=== PATIENT | male | born 1975 | race Caucasian/White ===

== ENCOUNTER 2021-05-21 09:42 | Emergency (ER) | payer OTHER ==
[2021-05-21 09:45] VITALS: BP 151/87; PULSE 78; RESP 18; TEMP 97.3
--- NOTE | 2021-05-21 10:33 | ED ---
Recheck HPI - General Chief Complaint: Recheck/Abnormal Lab/Rx Stated Complaint: Wants Antibodies Time Seen by Provider: 05/21/21 09:52 Source: patient, RN notes reviewed Mode of arrival: ambulatory Limitations: no limitations - History of Present Illness Initial Comments: Patient is a 45-year-old male that presents to the emergency Department wanting to monoclonal antibodies. He notes that he is asymptomatic but is not vaccinated and his is currently positive for Covid. Patient notes that he does have a long smoking history and is concerned about possibly gina Covid and the adverse effects. Patient does meet criteria for monoclonal antibody. Patient was otherwise well-appearing in no apparent distress or pain. He denied any other issues or complaints. He denied chest pain first breath headache nausea vomiting diarrhea constipation fever fatigue chills. - Related Data Allergies Allergy/AdvReac Type Severity Reaction Status Date / Time seafood Allergy Anaphylaxis Uncoded 05/21/21 09:45 Review of Systems ROS Statement: Those systems with pertinent positive or pertinent negative responses have been documented in the HPI. ROS Other: All systems not noted in ROS Statement are negative. Past Medical History Past Medical History: No Reported History History of Any Multi-Drug Resistant Organisms: None Reported Past Surgical History: Orthopedic Surgery Additional Past Surgical History / Comment(s): right knee and hip Past Psychological History: No Psychological Hx Reported Smoking Status: Current every day smoker Past Alcohol Use History: Occasional Past Drug Use History: None Reported General Exam Limitations: no limitations General appearance: alert, in no apparent distress Head exam: Present: atraumatic, normocephalic, normal inspection Eye exam: Present: normal appearance, PERRL, EOMI. Absent: scleral icterus, conjunctival injection, periorbital swelling ENT exam: Present: normal exam, mucous membranes moist Neck exam: Present: normal inspection Respiratory exam: Present: normal lung sounds bilaterally. Absent: respiratory distress, wheezes, rales, rhonchi, stridor Cardiovascular Exam: Present: regular rate, normal rhythm, normal heart sounds. Absent: systolic murmur, diastolic murmur, rubs, gallop, clicks Extremities exam: Present: normal inspection, full ROM, normal capillary refill. Absent: tenderness, pedal edema, joint swelling, calf tenderness Neurological exam: Present: alert, oriented X3 Psychiatric exam: Present: normal affect, normal mood Skin exam: Present: warm, dry, intact, normal color. Absent: rash Course Vital Signs 05/21/21 09:42 Temperature 97.3 F L Pulse Rate 78 Respiratory 18 Rate Blood Pressure 151/87 O2 Sat by Pulse 99 Oximetry Medical Decision Making - Medical Decision Making 45-year-old male with close contact to Covid-positive patient, not vaccinated long smoking history. Patient does meet criteria for monoclonal antibody therapy and wishes to undergo it at this time. Covid test ordered. Case discussed with Dr. Jones, patient discharge home after monoclonal antibody infusion. Disposition Clinical Impression: Exposure to COVID-19 virus Disposition: HOME SELF-CARE Condition: Stable Instructions (If sedation given, give patient instructions): Coronavirus Disea se 2019 (COVID-19) Additional Instructions: Please return to the Emergency Department if symptoms worsen or any other concerns. Follow-up with primary care 1-2 days. Quarantine per CDC guidelines. Tylenol Motrin for any fevers or aches and pains. Increase fluids. Is patient prescribed a controlled substance at d/c from ED?: No Referrals: Jessica Ramos DO [Primary Care Provider] - 1-2 days Time of Disposition: 10:33
[2021-05-21] MEDS ORDERED: CASIRIVIMAB (REGN10933) (EUA) 600 MG, IMDEVIMAB (REGN10987) (EUA) 600 MG in SODIUM CHLO... IVPB ONE (11:00)
[2021-05-21] MEDS ORDERED: SODIUM CHLORIDE 0.9% 50 ML IVPB ONE (11:30)
== END 2021-05-21 12:33 | disposition home or self-care (01) ==
LOC: EC 09:42
DX: Z20.822 Contact with and (suspected) exposure to COVID-19 (principal); F17.200 Nicotine dependence, unspecified, uncomplicated; Z91.013 Allergy to seafood
CPT/HCPCS: 87635; 99283; 96365; Q0243

== ENCOUNTER → 2021-05-24 | Outpatient (CLI) | payer OTHER | END | disposition home or self-care (01) | LOC: LABMAIN 18:04 | PROVIDERS: ATTEND Physician Assistant Medical | DX: Z20.822 Contact with and (suspected) exposure to COVID-19 (principal) | CPT/HCPCS: 87635 ==

== ENCOUNTER 2021-11-13 03:03 | Observation (INO) | payer OTHER ==
[2021-11-13 03:07] VITALS: RESP 18
[2021-11-13 03:46] LABS: Basophils # (A) 0.1 k/uL (0-0.2); Basophils % (A) 1 %; Eosinophils # (A) 0.3 k/uL (0-0.7); Eosinophils % (A) 3 %; HCT 47.3 % (39.0-53.0); HGB 15.2 gm/dL (13.0-17.5); Lymphocytes # (A) 2.6 k/uL (1.0-4.8); Lymphocytes % (A) 28 %; MCH 28.7 pg (25.0-35.0); MCHC 32.1 g/dL (31.0-37.0); MCV 89.6 fL (80.0-100.0); Mean Platelet Volume 7.3; Monocytes # (A) 0.5 k/uL (0-1.0); Monocytes % (A) 6 %; Neutrophils # (A) 5.6 k/uL (1.3-7.7); Neutrophils % (A) 61 %; Platelet Count 200 k/uL (150-450); RBC 5.28 m/uL (4.30-5.90); RDW 12.9 % (11.5-15.5); WBC 9.2 k/uL (3.8-10.6)
--- NOTE | 2021-11-13 03:52 | ED ---
Chest Pain HPI - General Chief Complaint: Chest Pain Stated Complaint: Chest pain Time Seen by Provider: 11/13/21 03:23 Source: patient, RN notes reviewed, old records reviewed Mode of arrival: ambulatory Limitations: no limitations - History of Present Illness Initial Comments: This is a 46-year-old male to the emergency department for evaluation. Patient was sleeping and had chest pain that woke him up. His chest and jaw pain left- sided. No shortness of breath no diaphoresis the pain is persistent. Patient is no medical history takes no medications no high blood pressure high cholesterol or diabetes. No travel history or sick contacts, no fever cough or congestion MD Complaint: chest pain -: hour(s) Onset: during rest Pain Location: substernal, left chest Pain Radiation: LUE Severity: mild Severity scale (1-10): 3 Quality: tightness Consistency: constant Improves With: nothing Worsens With: nothing Anginal Symptoms: sense of impending doom Other Symptoms: palpitations Treatments Prior to Arrival: none - Related Data Home Medications Medication Instructions Recorded Confirmed Atorvastatin [Lipitor] 40 mg PO DAILY 11/13/21 11/13/21 Gabapentin [Neurontin] 300 mg PO BID PRN 11/13/21 11/13/21 Omeprazole 40 mg PO DAILY 11/13/21 11/13/21 buPROPion HCL [Wellbutrin XL] 300 mg PO DAILY 11/13/21 11/13/21 Allergies Allergy/AdvReac Type Severity Reaction Status Date / Time No Known Allergies Allergy Verified 11/13/21 07:54 Review of Systems ROS Statement: Those systems with pertinent positive or pertinent negative responses have been documented in the HPI. ROS Other: All systems not noted in ROS Statement are negative. EKG Findings - EKG Comments: EKG Findings:: EKG is sinus rhythm 65 [place] 178 QRS 14 QTc 405 Past Medical History Past Medical History: No Reported History History of Any Multi-Drug Resistant Organisms: None Reported Past Surgical History: Orthopedic Surgery Additional Past Surgical History / Comment(s): right knee and hip Past Psychological History: No Psychological Hx Reported Smoking Status: Current every day smoker Past Alcohol Use History: Occasional Past Drug Use History: None Reported - Past Family History Mother Family Medical History: No Reported History Father Family Medical History: No Reported History General Exam Limitations: no limitations General appearance: alert, in no apparent distress Head exam: Present: atraumatic, normocephalic, normal inspection Eye exam: Present: normal appearance, PERRL, EOMI. Absent: scleral icterus, conjunctival injection, periorbital swelling ENT exam: Present: normal exam, mucous membranes moist Neck exam: Present: normal inspection. Absent: tenderness, meningismus, lymphadenopathy Respiratory exam: Present: normal lung sounds bilaterally. Absent: respiratory distress, wheezes, rales, rhonchi, stridor Cardiovascular Exam: Present: regular rate, normal rhythm, normal heart sounds. Absent: systolic murmur, diastolic murmur, rubs, gallop, clicks GI/Abdominal exam: Present: soft, normal bowel sounds. Absent: distended, tenderness, guarding, rebound, rigid Extremities exam: Present: normal inspection, full ROM, normal capillary refill. Absent: tenderness, pedal edema, joint swelling, calf tenderness Back exam: Present: normal inspection Neurological exam: Present: alert, oriented X3, CN II-XII intact Psychiatric exam: Present: normal affect, normal mood Skin exam: Present: warm, dry, intact, normal color. Absent: rash Course Vital Signs 11/13/21 11/13/21 11/13/21 03:05 05:07 05:30 Temperature 97.8 F 97.9 F Pulse Rate 71 75 Pulse Rate [ 68 Pulse Oximetery ] Respiratory 18 18 18 Rate Blood Pressure 148/98 126/91 Blood Pressure 125/82 [Left Arm Sitting] O2 Sat by Pulse 99 99 98 Oximetry - Reevaluation(s) Reevaluation #1: 11/13/21 Medical record is reviewed Patient symptoms are improving here in the emergency department Patient is informed of results and questions have been answered Chest Pain MDM - MDM 36 male to the emergency department admitted for chest pain observation, cardiac evaluation and treatment secondary to nature of chest pain Critical Care Time Critical Care Time: Yes Total Critical Care Time: 31 Disposition Clinical Impression: Chest pain Disposition: ADMITTED IP TO THIS HOSP Condition: Stable Is patient prescribed a controlled substance at d/c from ED?: No
[2021-11-13 03:55] LABS: ALT 24 U/L (4-49); AST 23 U/L (17-59); African American GFR (CKD) >90 (>60 ml/min/1.73 sqM); Albumin 4.1 g/dL (3.5-5.0); Alkaline Phosphatase 111 U/L (38-126); Anion Gap 6 mmol/L; Blood Urea Nitrogen 11 mg/dL (9-20); Calcium 8.7 mg/dL (8.4-10.2); Carbon Dioxide 26 mmol/L (22-30); Chloride 107 mmol/L (98-107); Glucose 103 mg/dL (74-99); Lipase 298 U/L (23-300); Magnesium 2.1 mg/dL (1.6-2.3); Non-African American GFR(CKD) >90 (>60 ml/min/1.73 sqM); Partial Thromboplastin Time 24.8 sec (22.0-30.0); Potassium 3.8 mmol/L (3.5-5.1); Prothrombin Time 10.5 sec (9.0-12.0); Sodium 139 mmol/L (137-145); Total Bilirubin 0.4 mg/dL (0.2-1.3)
--- NOTE | 2021-11-13 04:10 | XR ---
EXAMINATION TYPE: XR chest 2V DATE OF EXAM: 11/13/2021 COMPARISON: NONE HISTORY: Chest pain TECHNIQUE: FINDINGS: Heart and mediastinum are normal. Lungs are clear. Diaphragm is normal. Bony thorax appears normal. IMPRESSION: Normal chest.
[2021-11-13] MEDS ORDERED: HEPARIN SODIUM 1,000 UN/ML (10ML VL) IV ONE (04:53)
[2021-11-13] MEDS ORDERED: NITROGLYCERIN SL TABS 0.4 MG TAB SUBLINGUAL PRN (04:53)
[2021-11-13] MEDS ORDERED: ASPIRIN 81 MG PO STA (04:53)
[2021-11-13] MEDS ORDERED: HEPARIN SOD,PORK IN 0.45% NACL 25,000 UNIT in 0.45% NACL 1 250ML.BAG IV SCH (05:00)
--- NOTE | 2021-11-13 05:32 | P.HPIM ---
History of Present Illness H&P Date: 11/13/21 Patient is a 46-year-old male with a PMH of hypertriglyceridemia and tobacco abuse who presents to the emergency room with complaints of chest pain. The patient reports that he suddenly woke up from sleep at around 2 AM with right- sided chest discomfort, nonradiating, sharp in nature, nonpleuritic, with associated nausea, lightheadedness, and shortness of breath. The patient states that the pain was 5 out of 10 on maximal intensity, and has remained stable in intensity until the time of interview. He denied any alleviating or exacerbating features with this pain. Denied any prior history of [place]. Reports no family history of heart disease. Denied associatedpalpitations. Denied fever, chills, cough, abdominal pain, diarrhea. Reports drinking alcohol socially and smoking half pack of cigarettes daily for the past several years. EKG emergency room revealed sinus rhythm at 65 bpm with T-wave inversion in lead V1 with no additional ST/T-wave changes noted as reviewed by me. Chest x-ray was unremarkable. Laboratory evaluation revealed troponin less than 0.012. Review of systems: Pertinent positives and negatives as discussed in HPI, a complete review of systems was performed and all other systems are negative. Physical examination: General: non toxic, no distress, appears at stated age, overweight Derm: no unusual rashes/lesions no unusual ecchymoses, warm, dry Head: atraumatic, normocephalic, symmetric Eyes: EOMI, no lid lag, anicteric sclera, pupils equal round reactive to light ENT: Nose and ears atraumatic, no thrush, no pharyngeal erythema Neck: No thyromegaly, no cervical lymphadenopathy, trachea midline, supple Mouth: no lip lesion, mucus membranes moist Cardiovascular: S1S2 reg, no murmur, positive posterior tibial pulse bilateral, no edema, capillary refill less than 2 seconds Lungs: CTA bilateral, no rhonchi, no rales , no accessory muscle use Abdominal: soft, nontender to palpation, no guarding, no appreciable organomegaly, normal bowel sounds Ext: no gross muscle atrophy, muscle strength 5 out of 5 in all 4 extremities grossly, no contractures, Neuro: CN II-XI grossly intact, light touch intact all 4 extremities, finger to nose within normal limits, Psych: Alert, oriented, appropriate affect Assessment/plan Unstable angina -Cardiology consulted -Cardiac monitoring -Continue with aspirin, statin, Heparin infusion -Trend troponin -Advised on importance of tobacco cessation DVT prophylaxis -Heparin infusion The patient is admitted with an anticipated less than 2 midnight stay for evaluation of chest pain CODE STATUS: Full Code Discussed with: Patient Anticipated discharge date: in am Anticipated discharge place: Home Past Medical History Past Medical History: No Reported History History of Any Multi-Drug Resistant Organisms: None Reported Past Surgical History: Orthopedic Surgery Additional Past Surgical History / Comment(s): right knee and hip Past Psychological History: No Psychological Hx Reported Smoking Status: Current every day smoker Past Alcohol Use History: Occasional Past Drug Use History: None Reported Medications and Allergies Allergies Allergy/AdvReac Type Severity Reaction Status Date / Time No Known Allergies Allergy Verified 11/13/21 03:07 Physical Exam Vitals: Vital Signs Temp Pulse Resp BP Pulse Ox 11/13/21 05:07 75 18 126/91 99 11/13/21 03:05 97.8 F 71 18 148/98 99 Intake and Output 11/12/21 11/12/21 11/13/21 14:59 22:59 06:59 Other: Weight 81.647 kg Results CBC & Chem 7: 11/13/21 03:37 11/13/21 03:37 Labs: Abnormal Lab Results - Last 24 Hours (Table) 11/13/21 Range/Units 03:37 Glucose 103 H (74-99) mg/dL
[2021-11-13] MEDS ORDERED: METOPROLOL TARTRATE 25 MG TAB PO SCH (09:00)
[2021-11-13] MEDS: MORPHINE SULFATE 4 MG/ML SYRINGE IV PRN ×2 (09:25→13:23)
--- NOTE | 2021-11-13 11:16 | P.CRDCN ---
History of Present Illness Consult date: 11/13/21 History of present illness: HISTORY OF PRESENT ILLNESS: This is a 46-year-old male with a past medical history significant for hyperlipidemia and nicotine dependence. Patient does not follow with a financial engineer. We have been asked to see the patient in consultation for chest pain. Patient examined at the bedside. patient states he woke up this morning around 2am with chest pain. Patient states the pain was on the right side of his chest and felt like a sharp pain. Patient denied any radiation of pain. He denied shortness of breath. He reported feeling some mild nausea but no vomiting. He states the discomfort has been constant since waking up this morning. he denies any previous cardiac workup in the past. He is a half pack a day smoker. He reports social alcohol use. Denies any drug use including marijuana. He denies a family history of coronary artery disease. * EKG reveals sinus mechanism with no signs of acute ischemia * Chest xray negative for acute process * Laboratory data: W BC 9.2. Hemoglobin 15.2. Platelet count 200. Sodium 139. Potassium 3.8. BUN 11. Creatinine 0.85. Magnesium 2.1. * Current home cardiac medications include Lipitor 40 mg daily REVIEW OF SYSTEMS: At the time of my exam: CONSTITUTIONAL: Denies fever or chills. HEENT: Denies blurred vision, vision changes, or eye pain. Denies hemoptysis CARDIOVASCULAR: Denies chest pain. Denies orthopnea. Denies PND. Denies palpitations RESPIRATORY: Denies shortness of breath. GASTROINTESTINAL: Denies abdominal pain. Denies nausea or vomiting. HEMATOLOGIC: Denies bleeding disorders. GENITOURINARY: Denies any blood in urine. SKIN: Denies pruitis. Denies rash. PHYSICAL EXAM: VITAL SIGNS: Reviewed. GENERAL: Well-developed in no acute distress. HEENT: Head is normocephalic. Pupils are equal, round. Sclerae anicteric. Mucous membranes of the mouth are moist. Neck supple. No JVD or thyromegaly LUNGS: Respirations even and unlabored. Lungs essentially clear to auscultation bilaterally. HEART: Regular rate and rhythm. S1 and S2 heard. ABDOMEN: Soft. Nondistended. Nontender. EXTREMITIES: Normal range of motion. No clubbing or cyanosis. Peripheral pulses intact. No lower extremity edema NEUROLOGIC: Awake and alert. Oriented x 3. ASSESSMENT: Chest pain, atypical, troponin negative 2 Hyperlipidemia Nicotine dependence PLAN: An acute coronary been has been ruled out Obtain 2-D echo to assess cardiac structure and function Discontinue IV heparin Patient to undergo stress echo today. If negative, the patient may be discharged home today. Nurse practitioner note has been reviewed by physician. Signing provider agrees with the documented findings, assessment, and plan of care. Past Medical History Past Medical History: No Reported History History of Any Multi-Drug Resistant Organisms: None Reported Past Surgical History: Orthopedic Surgery Additional Past Surgical History / Comment(s): right knee and hip Past Anesthesia/Blood Transfusion Reactions: No Reported Reaction Past Psychological History: No Psychological Hx Reported Smoking Status: Current every day smoker Past Alcohol Use History: Occasional Past Drug Use History: None Reported - Past Family History Mother Family Medical History: No Reported History Father Family Medical History: No Reported History Medications and Allergies Home Medications Medication Instructions Recorded Confirmed Type Atorvastatin [Lipitor] 40 mg PO DAILY 11/13/21 11/13/21 History Gabapentin [Neurontin] 300 mg PO BID PRN 11/13/21 11/13/21 History Omeprazole 40 mg PO DAILY 11/13/21 11/13/21 History buPROPion HCL [Wellbutrin XL] 300 mg PO DAILY 11/13/21 11/13/21 History Allergies Allergy/AdvReac Type Severity Reaction Status Date / Time No Known Allergies Allergy Verified 11/13/21 07:54 Physical Exam Vitals: Vital Signs Temp Pulse Pulse Resp BP BP Pulse Ox 11/13/21 05:49 18 11/13/21 05:30 97.9 F 68 18 125/82 98 11/13/21 05:07 75 18 126/91 99 11/13/21 03:05 97.8 F 71 18 148/98 99 Intake and Output 11/12/21 11/13/21 11/13/21 22:59 06:59 14:59 Other: Weight 81.647 kg Results 11/13/21 03:37 11/13/21 03:37 Cardiac Enzymes 11/13/21 11/13/21 11/13/21 Range/Units 03:37 03:37 06:43 AST 23 (17-59) U/L Troponin I <0.012 <0.012 (0.000-0.034) ng/mL Coagulation 11/13/21 Range/Units 03:37 PT 10.5 (9.0-12.0) sec APTT 24.8 (22.0-30.0) sec CBC 11/13/21 Range/Units 03:37 WBC 9.2 (3.8-10.6) k/uL RBC 5.28 (4.30-5.90) m/uL Hgb 15.2 (13.0-17.5) gm/dL Hct 47.3 (39.0-53.0) % Plt Count 200 (150-450) k/uL Comprehensive Metabolic Panel 11/13/21 Range/Units 03:37 Sodium 139 (137-145) mmol/L Potassium 3.8 (3.5-5.1) mmol/L Chloride 107 (98-107) mmol/L Carbon Dioxide 26 (22-30) mmol/L BUN 11 (9-20) mg/dL Creatinine 0.85 (0.66-1.25) mg/dL Glucose 103 H (74-99) mg/dL Calcium 8.7 (8.4-10.2) mg/dL AST 23 (17-59) U/L ALT 24 (4-49) U/L Alkaline Phosphatase 111 (38-126) U/L Total Protein 7.0 (6.3-8.2) g/dL Albumin 4.1 (3.5-5.0) g/dL Current Medications Generic Name Dose Route Start Last Admin Trade Name Freq PRN Reason Stop Dose Admin Aspirin 325 mg 11/14/21 09:00 Aspirin 325 Mg Tab PO DAILY [facility] Atorvastatin Calcium 80 mg 11/13/21 21:00 Atorvastatin 80 Mg Tab PO HS [facility] Heparin Sodium/Sodium Chloride 250 mls @ 9.798 mls/hr 11/13/21 05:00 11/13/21 05:07 25,000 unit/ Sodium Chloride IV 12 units/kg/hr .Q24H CORNELIUS 9.798 mls/hr Administration Protocol 12 UNITS/KG/HR Metoprolol Tartrate 25 mg 11/13/21 09:00 Metoprolol Tartrate 25 Mg Tab PO BID [facility] Morphine Sulfate 4 mg 11/13/21 04:53 Morphine Sulfate 4 Mg/Ml Syringe IV Q4HR PRN Chest Pain Nitroglycerin 0.4 mg 11/13/21 04:53 Nitroglycerin Sl Tabs 0.4 Mg Tab SUBLINGUAL Q5M PRN Chest Pain Intake and Output 11/12/21 11/13/21 11/13/21 22:59 06:59 14:59 Other: Weight 81.647 kg 11/13/21 03:37 11/13/21 03:37
[2021-11-13 12:57] VITALS: BP 122/83; PULSE 77; TEMP 98.1
--- NOTE | 2021-11-13 13:42 | CA ---
Stress Echo Report Berny Maloney Age: 46 Gender: M : 1975 Exam Date: 11/13/2021 11:39 Exam Location: [place] [facility] Ht (in): 68 Wt (lb): 180 Ordering Physician: Jeniffer Mccarthy Referring Physician: [id number] Pulley Maintainer: Valencia Antonio RDCS Technologist Procedure CPT: Indication: Chest Pain ICD-9 Codes: Rhythm: Patient History: Smoker Cardiac Medications: Medications in past 24 hours: Contrast: N/A Stress Results Protocol: Adonay Total dose(mL): Exercise Duration (min:sec): Max ST Depression (mm): Angina Score: Taylor Score: METS: 12.1 Resting HR: 67 Resting BP: 118 / 90 Peak HR: 155 Peak BP: 163 / 77 Max Predicted HR: 173 90 % Max Predicted HR Target HR: 147 Double Product: [id number] Stress Summary: cp BP Response: Reason for Termination: Reached target heart rate Cardiac Symptoms: Chest pain ECG Analysis Resting ECG: Stress ECG: Arrhythmia: Echo Analysis Resting Echo: Peak Echo Analysis: MEASUREMENTS (Male/Female) Normal Values CONCLUSIONS Baseline EKG revealed normal sinus rhythm no significant ST-T changes. Patient walked for 11 minutes on the standard Adonay protocol maximal heart rate 155 bpm which is more than 85% of predicted maximal. There was no angina and no ischemia and no EKG changes to indicate ischemia or arrhythmia. Baseline echo images reveal normal wall motion and wall thickening of all segments. At peak exercise there was good augmentation of left ventricular wall motion wall thickening of all segments suggesting that there is no evidence of stress- induced ischemia on this study. Patient was asymptomatic Normal stress test by EKG criteria with excellent exercise capacity. Normal stress echocardiogram Dr. Martin Reyna MD (Electronically Signed) Final Date: 13 November 2021 13:41
--- NOTE | 2021-11-13 13:49 | CA ---
Transthoracic Echo Report Name: Berny Maloney Age: 46 Gender: M : 1975 Exam Date: 11/13/2021 09:45 Exam Location: [facility] [facility] Ht (in): 68 Wt (lb): 180 Ordering Physician: Mehdi Galicia DO Attending/Referring Phys: [id number], Grayson Pin Drafting Machine Tender Rosario Hassan RDCS Procedure CPT: Indications: CP Cardiac Hx: Technical Quality: Fair Contrast 1: Total Dose (mL): Contrast 2: Total Dose (mL): MEASUREMENTS (Male / Female) Normal Values 2D ECHO LV Diastolic Diameter PLAX 4.8 cm 4.2 - 5.9 / 3.9 - 5.3 cm LV Systolic Diameter PLAX 3.4 cm IVS Diastolic Thickness 1.2 cm 0.6 - 1.0 / 0.6 - 0.9 cm LVPW Diastolic Thickness 1.1 cm 0.6 - 1.0 / 0.6 - 0.9 cm LV Relative Wall Thickness 0.5 RV Internal Dim ED PLAX 3.8 cm LA Volume 60.2 cm 18 - 58 / 22 - 52 cm M-MODE Aortic Root Diameter MM 3.1 cm LA Systolic Diameter MM 3.9 cm LA Ao Ratio MM 1.3 AV Cusp Separation MM 2.2 cm DOPPLER AV Peak Velocity 111.7 cm/s AV Peak Gradient 5.0 mmHg LVOT Peak Velocity 91.8 cm/s LVOT Peak Gradient 3.4 mmHg MV Area PHT 3.5 cm Mitral E Point Velocity 74.5 cm/s Mitral A Point Velocity 62.9 cm/s Mitral E to A Ratio 1.2 MV Deceleration Time 217.4 ms TR Peak Velocity 212.2 cm/s TR Peak Gradient 18.0 mmHg Right Ventricular Systolic Press 21.7 mmHg FINDINGS Left Ventricle Normal Left ventricular size, systolic function with no obvious regional wall motion abnormalities. Normal Left ventricular diastolic filling pattern. Mildly increased left ventricular wall thickness. Left ventricular ejection fraction is estimated at 55-60 %. Right Ventricle Mild right ventricular dilatation. Right ventricular systolic pressure within normal limits. Right Atrium Normal right atrial size. Left Atrium Left atrial dilatation. No evidence for an atrial septal defect. Mitral Valve Mild mitral regurgitation. Structurally normal mitral valve. Aortic Valve Trileaflet aortic valve. No aortic valve stenosis or regurgitation. Tricuspid Valve Mild tricuspid regurgitation. Structurally normal tricuspid valve. Pulmonic Valve Structurally normal pulmonic valve. Trace pulmonic regurgitation. Pericardium No pericardial effusion. Aorta Normal size aortic root and proximal ascending aorta. CONCLUSIONS Normal LV size and systolic function with mild concentric LVH. Mild mitral and tricuspid insufficiency. No pericardial effusion. No pulmonary hypertension Previewed by: Dr. Martin Reyna MD (Electronically Signed) Final Date: 13 November 2021 13:48
--- NOTE | 2021-11-13 16:18 | P.DS ---
Providers Date of admission: 11/13/21 04:54 Expected date of discharge: 11/13/21 Attending physician: Norma Vega MD Consults: 11/13/21 04:54 Consult Physician Urgent Consulting Provider: Lois Judge Consult Reason/Comments: cp Do you want consulting provider notified?: Yes Primary care physician: Jessica Ramos Hospital Course: Discharge Diagnosis: Atypical chest pain, acute coronary event ruled out Hypertriglyceridemia, continue daily medication regimen with atorvastatin 40 mg daily Nicotine dependence, recommend smoking cessation Hospital Course: Patient is a very pleasant 46-year-old male with a past medical history of hypertriglyceridemia and tobacco dependence. He presented to the emergency department with a chief complaint of chest pain. Patient reported he was suddenly awoken from sleep around 2 AM with pain to right anterior chest accompanied by nausea, lightheadedness, and shortness of breath. Patient underwent full evaluation in the emergency department. CBC, CMP, and coags were all unremarkable. Lipase normal findings at 298. Troponin negative at less than 0.012. Chest x-ray was completed and negative for acute cardiopulmonary process. EKG showing normal sinus rhythm at 65 bpm with no noted T-wave or ST abnormalities. Patient was admitted under our services with consultation to cardiology. Troponins trended all less than 0.0123 draws. Patient had full resolution of previously reported chest pain, nausea, lightheadedness, and shortness of breath. Echocardiogram revealing EF of 55-60% with mild mitral and tricuspid insufficiency. Patient was evaluated by cardiology and underwent a stress echo which was negative showing no evidence of stress-induced ischemia, normal stress EKG and a normal stress echocardiogram. Cardiology clearing patient for outpatient follow-up in their office. No medication changes made at this time. Vital signs unremarkable. Patient reports that she remains free from any chest pain or discomfort. Patient medically stable for discharge home at this time. Physical examination: Vital signs reviewed and stable. General: Nontoxic, no distress and appears stated age. Derm: Skin warm and dry, normal coloration for ethnicity. Head: Atraumatic, normocephalic and symmetric. Eyes: EOMs intact, no lid lag, and anicteric sclera Mouth: no lip lesions, mucus membranes moist Cardiovascular: regular rate and rhythm with normal S1S2, no murmur, positive posterior tibial pulses bilaterally, and cap refill < 2 seconds. Lungs: Respirations even, regular, and unlabored on room air. Lungs CTA bilaterally, no rhonchi, no rales, no wheezing, and no accessory muscle usage. Abdominal: soft, nontender to palpation, no guarding, no appreciable organomegaly Ext: ROM intact. No gross muscle atrophy, no edema, no contractures Neuro: Speech clear, face symmetrical and CN II-XII grossly intact with no noted focal neuro deficits Psych: Alert and oriented to person, place, time, and situation. Appropriate and pleasant affect. A total of 35 minutes of time were spent preparing this complex discharge summary. Pt was discharged on 11/13/21 at 2 PM Patient Condition at Discharge: Stable Plan - Discharge Summary Discharge Rx Participant: No New Discharge Prescriptions: Continue Gabapentin [Neurontin] 300 mg PO BID PRN PRN Reason: Pain Omeprazole 40 mg PO DAILY buPROPion HCL [Wellbutrin XL] 300 mg PO DAILY Atorvastatin [Lipitor] 40 mg PO DAILY Discharge Medication List Atorvastatin [Lipitor] 40 mg PO DAILY 11/13/21 [History] Gabapentin [Neurontin] 300 mg PO BID PRN 11/13/21 [History] Omeprazole 40 mg PO DAILY 11/13/21 [History] buPROPion HCL [Wellbutrin XL] 300 mg PO DAILY 11/13/21 [History] Follow up Appointment(s)/Referral(s): Martin Reyna MD [STAFF PHYSICIAN] - 1 Week (The office will call you with a date and time for your appointment) Jessica Rmaos DO [Primary Care Provider] - 11/23/21 3:00 pm Patient Instructions/Handouts: Chest Pain (ED) Activity/Diet/Wound Care/Special Instructions: Activity: As tolerated. Take breaks as needed. Diet: Heart healthy and carb consistent diet. Avoid salts, or foods with hidden salts such as canned or boxed foods and frozen dinners. Extra salt makes your heart work harder and traps the fluid in your body for longer. Special Instructions: Take all of your medications as directed and remember to keep all of your doctor's appointments and follow-up as needed. Thank you for allowing us to participate in your care, it was truly a pleasure having you for our patient!!! Discharge Disposition: HOME SELF-CARE
[2021-11-13] MEDS ORDERED: ATORVASTATIN 80 MG TAB PO SCH (21:00)
[2021-11-14] MEDS ORDERED: ASPIRIN 325 MG TAB PO SCH (09:00)
== END 2021-11-13 14:36 | disposition home or self-care (01) ==
LOC: EC 03:03 → 3SCARD 04:54
PROVIDERS: ADMIT Internal Medicine; ATTEND Internal Medicine
DX: R07.89 Other chest pain (principal); E78.1 Pure hyperglyceridemia; E78.5 Hyperlipidemia, unspecified; R00.2 Palpitations; R06.02 Shortness of breath; R11.0 Nausea; R42 Dizziness and giddiness; I08.1 Rheumatic disorders of both mitral and tricuspid valves; F17.210 Nicotine dependence, cigarettes, uncomplicated; Z79.899 Other long term (current) drug therapy; Z98.890 Other specified postprocedural states; Z71.6 Tobacco abuse counseling
CPT/HCPCS: 96376 ×2; 96366; 96375; 96365; 99285; 99291; 36415; 93005; 93306; 93351; 83880; 80053; 83690; 83735; 84484; 85025; 85610; 85730; 71046; G0378; J2270; J1644 ×2

== ENCOUNTER → 2021-12-17 | Outpatient (CLI) | payer OTHER ==
--- NOTE | 2021-12-19 14:26 | CT ---
EXAMINATION TYPE: CT abdomen pelvis w con DATE OF EXAM: 12/17/2021 COMPARISON: NONE HISTORY: 46-year-old male with abdominal, pelvic, and perineal pain TECHNIQUE: Contiguous axial scanning of the abdomen and pelvis following administration of 88 ml Isov ue 300 IV contrast. Delayed images through the kidneys and coronal/sagittal reconstructions performe d. CT DLP: 757.1 mGycm Automated exposure control for dose reduction was used. FINDINGS: Heart normal size without pericardial effusion. Hazy lower lung densities likely relate to dependent atelectasis. There is a small hiatal hernia. No focal liver lesion or biliary ductal dilatation. Portal venous system is patent. Gallbladder is collapsed. There may be a punctate calculus at the fundus of the gallbladder. Adrenal glands, kidneys, and pancreas appear within normal limits. There is a peripherally calcified cyst within the spleen measuring 4.6 cm, suspected pseudocyst, poss ibly relating to prior trauma. No internal enhancement identified. No dilated small bowel, free fluid, or free air. No mesenteric or retroperitoneal lymphadenopathy. Normal appendix. Moderate stool within the right side of the colon and mild to moderate within the mi ldly redundant sigmoid colon. No pericolonic inflammatory change. Possible mild wall thickening of th e descending colon likely relates to nondistention, refer to coronal image 59. Bladder is urine distended. Prostate gland measures 3.8 cm wide. No abnormal fluid collection in the pelvis or pelvic lymphadenopathy. Bones: Mild degenerative change of the right hip. Mild facet arthropathy mid to lower lumbar spine. T race grade 1 retrolisthesis L2-L3, L3/L4, and L4-L5. IMPRESSION: 1. SMALL HIATAL HERNIA. SUSPECT A TINY PUNCTATE GALLSTONE. 2. A 4.6 CM PERIPHERALLY CALCIFIED CYST WITHIN THE SPLEEN LIKELY A PSEUDOCYST A SEQUELA OF PRIOR T RAUMA. CLINICALLY CORRELATE. CONSIDER A 6-12 MONTH FOLLOW-UP ULTRASOUND TO REASSESS FOR STABILITY. 3. MILD CIRCUMFERENTIAL WALL THICKENING ALONG THE DESCENDING COLON LIKELY DUE TO NONDISTENTION RATHER THAN A NONSPECIFIC MILD COLITIS. CLINICALLY CORRELATE. 4. MODERATE STOOL WITHIN THE RIGHT SIDE OF THE COLON. MILD TO MODERATE WITHIN THE SLIGHTLY REDUNDANT SIGMOID COLON AND RECTUM.
== END | disposition home or self-care (01) ==
LOC: RADCTMAIN 13:59
PROVIDERS: ATTEND Family Medicine
DX: K44.9 Diaphragmatic hernia without obstruction or gangrene (principal); D73.4 Cyst of spleen; R10.84 Generalized abdominal pain; R10.2 Pelvic and perineal pain
CPT/HCPCS: 74177; Q9967 ×2

== ENCOUNTER → 2022-02-13 | Outpatient (CLI) | payer OTHER ==
[2022-02-13 17:07] LABS: HCT 46.2 % (39.6-50.0); HGB 14.8 g/dL (13.0-17.0); MCH 28.6 pg (27.0-32.0); MCV 89.4 fL (80.0-97.0); Mean Platelet Volume 10.9 fL (9.5-12.2); NRBC Per 100 WBC 0 /100 WBCS (0.0-0.0); Platelet Count 200 X 10*3/uL (140-440); RBC 5.17 X 10*6/uL (4.40-5.60); RDW 12.7 % (11.5-14.5); WBC 6.95 X 10*3/uL (4.50-10.00)
== END | disposition home or self-care (01) ==
LOC: LABPAT 10:41
PROVIDERS: ATTEND Surgery
DX: Z01.812 Encounter for preprocedural laboratory examination (principal)
CPT/HCPCS: 85027

== ENCOUNTER 2022-02-16 11:24 | Day surgery (SDC) | payer OTHER ==
[2022-02-12 10:27] VITALS: BMI 27.3
[~2022-02-16 11:24] MED LIST: DEXAMETHASONE SOD PHOSPHATE 4 MG/ML 1 ML VIAL IV ONE; HEPARIN SODIUM,PORCINE/PF 5,000 UNIT/0.5 ML SYRINGE SQ PRN; LACTATED RINGERS 1,000 ML IV SCH; LIDOCAINE 1% (10MG/ML) FOR IV START INTRADERMA PRN; MIDAZOLAM 2 MG/2 ML VIAL IV PRN; ONDANSETRON 4 MG/2 ML VIAL IVP ONE
[2022-02-16] MEDS ORDERED: MIDAZOLAM 2 MG/2 ML VIAL IVP ONE (12:03)
[2022-02-16] MEDS ORDERED: HYDROmorphone (PF) 1 MG/ML ONE (12:35)
[2022-02-16] MEDS ORDERED: LIDOCAINE 2% INJ 20 MG/ML (2 ML VIAL) ONE (12:35)
[2022-02-16] MEDS ORDERED: ePHEDrine 50 MG/ML 1 ML VIAL ONE (12:35)
[2022-02-16] MEDS ORDERED: PROPOFOL 10 MG/ML 20 ML VIAL IV ONE (12:35)
[2022-02-16] MEDS ORDERED: MIDAZOLAM 2 MG/2 ML VIAL ONE (12:35)
[2022-02-16] MEDS ORDERED: NEOSTIGMINE 1 MG/ML 10 ML VIAL ONE (12:35)
[2022-02-16] MEDS ORDERED: INDOCYANINE GREEN 25 MG VIAL IV ONE (12:35)
[2022-02-16] MEDS ORDERED: fentaNYL (PF) 50 MCG/ML 2 ML AMP ONE (12:35)
[2022-02-16] MEDS ORDERED: ROCURONIUM 10 MG/ML (5 ML VIAL) IV ONE (12:35)
[2022-02-16] MEDS ORDERED: SUCCINYLCHOLINE CHLORIDE 200 MG/10 ML VIAL IV ONE (12:35)
[2022-02-16] MEDS ORDERED: GLYCOPYRROLATE 0.2 MG/ML 2 ML VIAL ONE (12:35)
[2022-02-16] MEDS ORDERED: BUPIVACAIN-EPI 0.25%-1:200,000 30 ML VIAL SQ ONE ×2 (12:59→13:31)
[2022-02-16] MEDS ORDERED: LACTATED RINGERS 1,000 ML IV ONE (13:24)
--- NOTE | 2022-02-16 13:39 | P.OP ---
Date of Procedure: 02/16/22 Preoperative Diagnosis: Symptomatic cholelithiasis Postoperative Diagnosis: Symptomatic cholelithiasis Procedure(s) Performed: Robotic cholecystectomy Anesthesia: PAVAN Surgeon: Edita Robles Pathology: other (Gallbladder and contents) Condition: stable Disposition: same day Indications for Procedure: 46-year-old male presents today for elective cholecystectomy. He has been having right upper quadrant pain and has been found to have cholelithiasis. Risks, benefits and alternatives were provided to the patient and he did provide consent prior to attending the operating suite. Operative Findings: Distended and edematous gallbladder Description of Procedure: Patient was brought to the operating suite and placed in supine position on the operating table. Sedation was provided by anesthesia and the patient underwent endotracheal intubation. He was then prepped and draped in regular sterile fashion. An infraumbilical incision is made and dissection was carried to the fascia. The fascia was incised and an 8 mm trocar was placed. Pneumoperitoneum was then achieved. The patient was then placed in appropriate position and 28 mm trochars were placed in the right lower quadrant and an 8 mm trocar was placed in the left lower quadrant. The gallbladder was then grasped and elevated and was noted to be edematous and mildly distended. It was retracted appropriately and dissection was carried along the infundibulum and the cystic duct was located. This was confirmed with ICG technology. Cystic duct was then skeletonized and 2 clips were placed proximally one was placed distally and the cystic duct was ligated. Dissection was carried to skeletonize the cystic artery at this point. 2 clips were placed proximally one was placed distally and the cystic artery was ligated. Cautery was used to dissect the gallbladder off the gallbladder fossa on the liver bed. Hemostasis was maintained. The gallbladder was then placed in an Endo Catch bag. The robot was undocked and the gallbladder in the Endo Catch bag was removed from the infra umbilical incision site. Hemostasis was noted to continue to be maintained. Infra local fascial incision site was closed with 0 Vicryl suture using a Berny-Анна device under direct visualization. Pneumoperitoneum was released. All ports removed. All ports were then closed using 4-0 Vicryl subcuticular suture. Sterile dressing was applied. The patient was awakened in the operating suite and taken to postanesthesia care unit in stable condition. Sponge and instrument count were correct 2.
[2022-02-16 13:46] VITALS: TEMP 96.9
[2022-02-16] MEDS: HYDROmorphone 0.5 MG/0.5 ML SYRINGE IVP PRN ×2 (14:05→14:16)
[2022-02-16] MEDS ORDERED: HYDROcodone/APAP 5-325MG 1 EACH TAB ONE (14:48)
[2022-02-16 15:11] VITALS: BP 113/70; PULSE 91; RESP 18
== END 2022-02-16 15:47 | disposition home or self-care (01) ==
LOC: OR 11:24
PROVIDERS: ATTEND Surgery
DX: K81.1 Chronic cholecystitis (principal); K21.9 Gastro-esophageal reflux disease without esophagitis; K44.9 Diaphragmatic hernia without obstruction or gangrene; E78.5 Hyperlipidemia, unspecified; F41.9 Anxiety disorder, unspecified; F17.210 Nicotine dependence, cigarettes, uncomplicated; Z79.899 Other long term (current) drug therapy
CPT/HCPCS: 47562; 88304; J2250; J0330; J1100; J2710; J0690; J2405; J3010; J1170 ×2; J2704; J1644; J2001

== ENCOUNTER 2022-07-25 02:21 | Inpatient (IN) | payer OTHER ==
[2022-07-25] MEDS ORDERED: SODIUM CHLORIDE 0.9% 1,000 ML IV ONE (03:01)
[2022-07-25] MEDS ORDERED: MORPHINE SULFATE 4 MG/ML SYRINGE IVP STA (03:01)
[2022-07-25 03:33] LABS: HCT 45.2 % (39.0-53.0); HGB 15.6 gm/dL (13.0-17.5); MCH 29.3 pg (25.0-35.0); MCHC 34.4 g/dL (31.0-37.0); MCV 85.2 fL (80.0-100.0); Mean Platelet Volume 8.2; Platelet Count 158 k/uL (150-450); RBC 5.31 m/uL (4.30-5.90); RDW 12.9 % (11.5-15.5); WBC 20.8 k/uL (3.8-10.6)
[2022-07-25 03:41] LABS: INR 1.2 (<1.2); Prothrombin Time 12.2 sec (9.0-12.0)
[2022-07-25 03:42] LABS: Partial Thromboplastin Time 26.5 sec (22.0-30.0)
[2022-07-25 03:44] LABS: ALT 50 U/L (4-49); AST 42 U/L (17-59); African American GFR (CKD) >90 (>60 ml/min/1.73 sqM); Albumin 4.2 g/dL (3.5-5.0); Alkaline Phosphatase 118 U/L (38-126); Anion Gap 10 mmol/L; Blood Urea Nitrogen 16 mg/dL (9-20); Calcium 8.8 mg/dL (8.4-10.2); Carbon Dioxide 21 mmol/L (22-30); Chloride 104 mmol/L (98-107); Glucose 133 mg/dL (74-99); Non-African American GFR(CKD) 84 (>60 ml/min/1.73 sqM); Potassium 3.3 mmol/L (3.5-5.1); Sodium 135 mmol/L (137-145); Total Bilirubin 1.4 mg/dL (0.2-1.3); Total Protein 7.2 g/dL (6.3-8.2)
--- NOTE | 2022-07-25 04:31 | CT ---
EXAMINATION TYPE: CT abdomen pelvis w con DATE OF EXAM: 07/25/2022 COMPARISON: 12/17/2021 HISTORY: rlq pain.PRIORS ON PACS CT DLP: 980.4 mGycm Automated exposure control for dose reduction was used. CONTRAST: Performed with IV Contrast, patient injected with 100 mL of Isovue 300. Images obtained from the diaphragm to the floor the pelvis with the IV contrast. There is some atelectasis at the lung bases. There is a 4.6 cm calcified cyst in the anterior spleen. Heart size is normal. No pericardial effusion. Liver and pancreas stomach appear intact. The bowel g as are not dilated. Gallbladder appears absent. There is no adrenal mass. Kidneys show satisfactory contrast opacification. No hydronephrosis. Ureter s are not dilated. The bladder distends smoothly. No inguinal hernia. There is no free fluid in the p irving. There is extensive fat stranding and fluid in the right lower quadrant in the right paracolic gutter. There appears to be some extraluminal air in the right paracolic gutter. There is dilated appendix w ith wall thickening. Appendix measures up to 19 mm. The lumbar spine is intact. Bony pelvis is intact. The hip joints are intact. IMPRESSION: Extensive inflammatory changes in the right lower quadrant with apparent extraluminal air in the late ral paracolic gutter and consistent with appendicitis with rupture.
[2022-07-25] MEDS ORDERED: cefTRIAXone IN SWFI 1,000 MG/10 ML SYRINGE IVP STA (04:39)
[2022-07-25] MEDS ORDERED: metroNIDAZOLE-NS PMX 500 MG in SALINE 1 100ML.BAG IVPB STA (04:39)
[2022-07-25 04:40] LABS: Band Neutrophils % 19 %; Lymphocytes # (M) 1.25 k/uL (1.0-4.8); Monocytes # (M) 1.66 k/uL (0-1.0); Neutrophils % (M) 68 %; Nucleated Red Blood Cells 0 /100 WBC (0-0); Total Cells Counted 200
[2022-07-25] MEDS ORDERED: NALOXONE 0.4 MG/ML 1 ML VIAL IV PRN (04:42)
--- NOTE | 2022-07-25 04:43 | ED ---
General Adult HPI - General Chief complaint: Abdominal Pain Stated complaint: Abd pain Time Seen by Provider: 07/25/22 02:34 Source: patient Mode of arrival: ambulatory Limitations: no limitations - History of Present Illness Initial comments: This is a 47-year-old male with a past medical history presents emergency department for right lower quadrant abdominal pain. The patient stated this abdominal pain was present since Tuesday and has been persistent ever since. The patient stated that the pain became acutely worse overnight 3 came to the emerge ncy department. The patient did have one episode of vomiting and has had diarrhea. The patient is also had a decreased appetite over the last several days. The patient denied any other acute critical points at this time. The patient denied any current fevers or chills. - Related Data Home Medications Medication Instructions Recorded Confirmed Atorvastatin [Lipitor] 40 mg PO DAILY 11/13/21 02/12/22 Gabapentin [Neurontin] 300 mg PO BID PRN 11/13/21 02/12/22 Omeprazole 40 mg PO DAILY 11/13/21 02/12/22 buPROPion HCL [Wellbutrin XL] 300 mg PO DAILY 11/13/21 02/12/22 Previous Rx's Medication Instructions Recorded HYDROcodone/APAP 5-325MG [[place] 1 tab PO Q6HR PRN 3 Days #12 tab 02/16/22 5-325] Allergies Allergy/AdvReac Type Severity Reaction Status Date / Time No Known Allergies Allergy Verified 02/12/22 10:19 Review of Systems ROS Statement: Those systems with pertinent positive or pertinent negative responses have been documented in the HPI. ROS Other: All systems not noted in ROS Statement are negative. Past Medical History Past Medical History: GERD/Reflux, Hyperlipidemia Additional Past Medical History / Comment(s): GALLBLADDER ISSUES History of Any Multi-Drug Resistant Organisms: None Reported Past Surgical History: Cholecystectomy, Orthopedic Surgery Additional Past Surgical History / Comment(s): right knee and hip SX Past Anesthesia/Blood Transfusion Reactions: No Reported Reaction Past Psychological History: No Psychological Hx Reported Smoking Status: Current every day smoker Past Alcohol Use History: Occasional Past Drug Use History: None Reported - Past Family History Mother Family Medical History: No Reported History Father Family Medical History: No Reported History General Exam Limitations: no limitations General appearance: alert, in distress (Mild distress secondary to abdominal pain) Head exam: Present: atraumatic, normocephalic, normal inspection Eye exam: Present: normal appearance, PERRL Pupils: Present: normal accommodation ENT exam: Present: normal exam, normal oropharynx, mucous membranes moist Neck exam: Present: normal inspection, full ROM Respiratory exam: Present: normal lung sounds bilaterally Cardiovascular Exam: Present: regular rate, normal rhythm, normal heart sounds GI/Abdominal exam: Present: tenderness (Tenderness noted in the right lower quadrant) Extremities exam: Present: normal inspection, full ROM Back exam: Present: normal inspection, full ROM Neurological exam: Present: alert, oriented X3, CN II-XII intact Psychiatric exam: Present: normal affect, normal mood Skin exam: Present: warm, dry Course Vital Signs 07/25/22 07/25/22 02:26 05:26 Temperature 98.6 F Pulse Rate 112 H 88 Respiratory 18 15 Rate Blood Pressure 101/70 137/67 O2 Sat by Pulse 97 99 Oximetry Medical Decision Making - Medical Decision Making Was pt. sent in by a medical professional or institution (, PA, COMPUTER GAME DESIGNER, urgent care, hospital, or skilled nursing...) When possible be specific @ -No Did you speak to anyone other than the patient for history (EMS, parent, family, police, friend...)? What history was obtained from this source @ -No Did you review nursing and triage notes (agree or disagree)? Why? @ -I reviewed and agree with nursing and triage notes Were old charts reviewed (outside hosp., previous admission, EMS record, old EKG, old radiological studies, urgent care reports/EKG's, skilled nursing records)? Report findings @ -No old charts were reviewed Differential Diagnosis (chest pain, altered mental status, abdominal pain women, abdominal pain men, vaginal bleeding, weakness, fever, dyspnea, syncope, headache, dizziness, GI bleed, back pain, seizure, CVA, palpatations, mental health)? @ -Acute appendicitis, ruptured appendicitis, small bowel obstruction EKG interpreted by me (3pts min.). @ -As above X-rays interpreted by me (1pt min.). @ -None done CT interpreted by me (1pt min.). @ -CT of the abdomen and pelvis with contrast was obtained and was interpreted by myself. CT showed extensive inflammatory changes in the right lower quadrant with apparent extraluminal air in the lateral paracolic gutter and consistent with appendicitis with rupture U/S interpreted by me (1pt. min.). @ -None done What testing was considered but not performed or refused? (CT, X-rays, U/S, labs)? Why? @ -None What meds were considered but not given or refused? Why? @ -None Did you discuss the management of the patient with other professionals (professionals i.e. Dr., PA, COMPUTER GAME DESIGNER, lab, RT, psych nurse, licensed clinical social worker, death claim examiner, teacher, safety instruction police officer, case briefer)? Give summary @ -Yes, on-call surgeon, Dr. Leone Was smoking cessation discussed for >3mins.? @ -No Was critical care preformed (if so, how long)? @ -No Were there social determinants of health that impacted care today? How? (Homelessness, low income, unemployed, alcoholism, drug addiction, transportation, low edu. Level, literacy, decrease access to med. care, retirement, rehab)? @ -No Was there de-escalation of care discussed even if they declined (Discuss DNR or withdrawal of care, Hospice)? DNR status @ -No What co-morbidities impacted this encounter? (DM, HTN, Smoking, COPD, CAD, Cancer, CVA, ARF, Chemo, Hep., AIDS, mental health diagnosis, sleep apnea, morbid obesity)? @ -None Was patient admitted / discharged? Hospital course, mention meds given and route, prescriptions, significant lab abnormalities, going to OR and other pertinent info. @ -The patient was seen and evaluated emergency department. Physical exam, the patient was resting in bed in distress secondary to abdominal pain. Laboratory workup did show a white blood cell count of 20. The patient CT was concerning for appendicitis with rupture. The on-call surgeon was contacted regarding this and he did agree to accept the patient for admission at 0440. The patient was also started on Rocephin and Flagyl. The patient was told of this plan and was agreeable. The patient was admitted in stable condition. Undiagnosed new problem with uncertain prognosis? @ -No Drug Therapy requiring intensive monitoring for toxicity (Heparin, Nitro, Insulin, Cardizem)? @ -No Were any procedures done? @ -No Diagnosis/symptom? @ -Appendicitis with rupture Acute, or Chronic, or Acute on Chronic? @ -Acute Uncomplicated (without systemic symptoms) or Complicated (systemic symptoms)? @ -Complicated Side effects of treatment? @ -No Exacerbation, Progression, or Severe Exacerbation? @ -No Poses a threat to life or bodily function? How? (Chest pain, [place], [place], pneumonia, PE, COPD, DKA, ARF, appy, cholecystitis, CVA, Diverticulitis, Homicidal, Suicidal, threat to staff... and all critical care pts) @ -No - Lab Data Result diagrams: 07/25/22 03:13 07/25/22 03:13 Lab Results 07/25/22 07/25/22 07/25/22 Range/Units 03:13 03:13 03:13 WBC 20.8 H (3.8-10.6) k/uL RBC 5.31 (4.30-5.90) m/uL Hgb 15.6 (13.0-17.5) gm/dL Hct 45.2 (39.0-53.0) % MCV 85.2 (80.0-100.0) fL MCH 29.3 (25.0-35.0) pg MCHC 34.4 (31.0-37.0) g/dL RDW 12.9 (11.5-15.5) % Plt Count 158 (150-450) k/uL MPV 8.2 Neutrophils % (Manual) 68 % Band Neuts % (Manual) 19 % Lymphocytes % (Manual) 6 % Monocytes % (Manual) 8 % Neutrophils # (Manual) 18.00 H (1.3-7.7) k/uL Lymphocytes # (Manual) 1.25 (1.0-4.8) k/uL Monocytes # (Manual) 1.66 H (0-1.0) k/uL Nucleated RBCs 0 (0-0) /100 WBC Manual Slide Review Performed PT 12.2 H (9.0-12.0) sec INR 1.2 H (<1.2) APTT 26.5 (22.0-30.0) sec Sodium 135 L (137-145) mmol/L Potassium 3.3 L (3.5-5.1) mmol/L Chloride 104 (98-107) mmol/L Carbon Dioxide 21 L (22-30) mmol/L Anion Gap 10 mmol/L BUN 16 (9-20) mg/dL Creatinine 1.05 (0.66-1.25) mg/dL Est GFR (CKD-EPI)AfAm >90 (>60 ml/min/1.73 sqM) Est GFR (CKD-EPI)NonAf 84 (>60 ml/min/1.73 sqM) Glucose 133 H (74-99) mg/dL Calcium 8.8 (8.4-10.2) mg/dL Total Bilirubin 1.4 H (0.2-1.3) mg/dL AST 42 (17-59) U/L ALT 50 H (4-49) U/L Alkaline Phosphatase 118 (38-126) U/L Total Protein 7.2 (6.3-8.2) g/dL Albumin 4.2 (3.5-5.0) g/dL Disposition Clinical Impression: Ruptured appendicitis Disposition: ADMITTED IP TO THIS [facility] Condition: Stable Is patient prescribed a controlled substance at d/c from ED?: No Time of Disposition: 04:40 Decision to Admit Reason: Admit from EC Decision Date: 07/25/22 Decision Time: 04:40
[2022-07-25] MEDS: HYDROmorphone 1 MG/ML 1 ML SYRINGE IVP PRN ×4 (05:57→20:36)
[2022-07-25] MEDS ORDERED: ACETAMINOPHEN IV (For NPO) 1,000 MG in EMPTY BAG 1 BAG IVPB ONE (06:56)
[2022-07-25 07:54] LABS: Appearance,Urine Clear (Clear); Bilirubin,Urine Negative (Negative); Blood,Urine Trace (Negative); Color,Urine Yellow; Glucose,Urine (UA) Negative (Negative); Ketones,Urine Negative (Negative); Leukocyte Esterase,Urine Negative (Negative); Mucus,Urine Occasional /hpf; Nitrite,Urine Negative (Negative); Protein,Urine 1+ (Negative); RBC,Urine 4 /hpf (0-5); Urobilinogen,Urine <2.0 mg/dL (<2.0); WBC,Urine 1 /hpf (0-5)
[2022-07-25 08:05] LABS: Specific Gravity,Urine >1.050 (1.001-1.035)
--- NOTE | 2022-07-25 08:50 | XR ---
EXAMINATION TYPE: XR chest 1V portable DATE OF EXAM: 07/25/2022 8:33 AM COMPARISON: Chest radiographs from 11/13/2021 TECHNIQUE: XR chest 1V portable Portable AP radiograph of the chest. CLINICAL INDICATION:Male, 47 years old with history of pre-op; FINDINGS: Lungs/Pleura: There is no evidence of pleural effusion, focal consolidation, or pneumothorax. Basila r airspace opacities on the left could represent patient's nipple. Pulmonary vascularity: Unremarkable. Heart/mediastinum: Cardiomediastinal silhouette is unremarkable. Musculoskeletal: No acute osseous pathology. IMPRESSION: No acute cardiopulmonary disease/process.
[2022-07-25] MEDS ORDERED: LACTATED RINGERS 1,000 ML IV ONE ×2 (10:54→12:50)
[2022-07-25] MEDS ORDERED: MIDAZOLAM 2 MG/2 ML VIAL IVP ONE (10:57)
--- NOTE | 2022-07-25 11:04 | P.GSHP ---
History of Present Illness H&P Date: 07/25/22 47-year-old male comes in the ER last night with abdominal pain. Pain began in mid Pasquale. Patient had anorexia and nausea. Pain was moving from the mid abdomen to the right lower quadrant. He did have a fever last night of 102.5. White blood cell count elevated on admission at 20. CAT scan was performed showing acute appendicitis with rupture and pericolonic gas collection. There appears to be an appendicolith present. - Review of Systems Comment: The patient denies any acute changes in vision or hearing, no dysphagia or odynophagia, no chest pain or shortness of breath, no dysuria or hematuria, no headache, no runny nose, no rectal bleeding or melena, no unexplained weight loss Past Medical History Past Medical History: GERD/Reflux, Hyperlipidemia Additional Past Medical History / Comment(s): GALLBLADDER ISSUES History of Any Multi-Drug Resistant Organisms: None Reported Past Surgical History: Cholecystectomy, Orthopedic Surgery Additional Past Surgical History / Comment(s): right knee and hip SX Past Anesthesia/Blood Transfusion Reactions: No Reported Reaction Past Psychological History: No Psychological Hx Reported Smoking Status: Current every day smoker Past Alcohol Use History: Occasional Past Drug Use History: None Reported - Past Family History Mother Family Medical History: No Reported History Father Family Medical History: No Reported History Medications and Allergies Home Medications Medication Instructions Recorded Confirmed Type Atorvastatin [Lipitor] 40 mg PO DAILY 11/13/21 02/12/22 History Gabapentin [Neurontin] 300 mg PO BID PRN 11/13/21 02/12/22 History Omeprazole 40 mg PO DAILY 11/13/21 02/12/22 History buPROPion HCL [Wellbutrin XL] 300 mg PO DAILY 11/13/21 02/12/22 History HYDROcodone/APAP 5-325MG [[place] 1 tab PO Q6HR PRN 3 Days #12 tab 02/16/22 Rx 5-325] Allergies Allergy/AdvReac Type Severity Reaction Status Date / Time No Known Allergies Allergy Verified 02/12/22 10:19 Surgical - Exam Vital Signs Temp Pulse Resp BP Pulse Ox 98.6 F 112 H 18 101/70 97 07/25/22 02:26 07/25/22 02:26 07/25/22 02:26 07/25/22 02:26 07/25/22 02:26 Physical exam: General: Well-developed, well-nourished HEENT: Normocephalic, sclerae nonicteric Abdomen: Mild distention, moderate right lower quadrant tenderness Extremities: No edema Neuro: Alert and oriented Results - Labs 07/25/22 03:13 07/25/22 03:13 Abnormal Lab Results - Last 24 Hours (Table) 07/25/22 07/25/22 07/25/22 Range/Units 03:13 03:13 03:13 WBC 20.8 H (3.8-10.6) k/uL Neutrophils # (Manual) 18.00 H (1.3-7.7) k/uL Monocytes # (Manual) 1.66 H (0-1.0) k/uL PT 12.2 H (9.0-12.0) sec INR 1.2 H (<1.2) Sodium 135 L (137-145) mmol/L Potassium 3.3 L (3.5-5.1) mmol/L Carbon Dioxide 21 L (22-30) mmol/L Glucose 133 H (74-99) mg/dL Total Bilirubin 1.4 H (0.2-1.3) mg/dL ALT 50 H (4-49) U/L Ur Specific [place] (1.001-1.035) Urine Protein (Negative) Urine Blood (Negative) Urine Mucus (None) /hpf 07/25/22 Range/Units 07:39 WBC (3.8-10.6) k/uL Neutrophils # (Manual) (1.3-7.7) k/uL Monocytes # (Manual) (0-1.0) k/uL PT (9.0-12.0) sec INR (<1.2) Sodium (137-145) mmol/L Potassium (3.5-5.1) mmol/L Carbon Dioxide (22-30) mmol/L Glucose (74-99) mg/dL Total Bilirubin (0.2-1.3) mg/dL ALT (4-49) U/L Ur Specific [place] >1.050 H (1.001-1.035) Urine Protein 1+ H (Negative) Urine Blood Trace H (Negative) Urine Mucus Occasional H (None) /hpf Diabetes panel 07/25/22 Range/Units 03:13 Sodium 135 L (137-145) mmol/L Potassium 3.3 L (3.5-5.1) mmol/L Chloride 104 (98-107) mmol/L Carbon Dioxide 21 L (22-30) mmol/L BUN 16 (9-20) mg/dL Creatinine 1.05 (0.66-1.25) mg/dL Glucose 133 H (74-99) mg/dL Calcium 8.8 (8.4-10.2) mg/dL AST 42 (17-59) U/L ALT 50 H (4-49) U/L Alkaline Phosphatase 118 (38-126) U/L Total Protein 7.2 (6.3-8.2) g/dL Albumin 4.2 (3.5-5.0) g/dL Calcium panel 07/25/22 Range/Units 03:13 Calcium 8.8 (8.4-10.2) mg/dL Albumin 4.2 (3.5-5.0) g/dL Pituitary panel 07/25/22 Range/Units 03:13 Sodium 135 L (137-145) mmol/L Potassium 3.3 L (3.5-5.1) mmol/L Chloride 104 (98-107) mmol/L Carbon Dioxide 21 L (22-30) mmol/L BUN 16 (9-20) mg/dL Creatinine 1.05 (0.66-1.25) mg/dL Glucose 133 H (74-99) mg/dL Calcium 8.8 (8.4-10.2) mg/dL Adrenal panel 07/25/22 Range/Units 03:13 Sodium 135 L (137-145) mmol/L Potassium 3.3 L (3.5-5.1) mmol/L Chloride 104 (98-107) mmol/L Carbon Dioxide 21 L (22-30) mmol/L BUN 16 (9-20) mg/dL Creatinine 1.05 (0.66-1.25) mg/dL Glucose 133 H (74-99) mg/dL Calcium 8.8 (8.4-10.2) mg/dL Total Bilirubin 1.4 H (0.2-1.3) mg/dL AST 42 (17-59) U/L ALT 50 H (4-49) U/L Alkaline Phosphatase 118 (38-126) U/L Total Protein 7.2 (6.3-8.2) g/dL Albumin 4.2 (3.5-5.0) g/dL Assessment and Plan (1) Ruptured appendicitis Narrative/Plan: 47-year-old male with ruptured acute appendicitis. Will proceed with laparoscopic, possible open appendectomy at this time. Risks of bleeding, infection, abscess, bladder bowel and ureteral injury, possible need for bowel resection, drain placement, hernia, leak, sepsis. Patient understands and wishes to proceed. Current Visit: Yes Status: Acute Code(s): K35.32 - AC APPENDICITIS W PERF, LOC PERITONITIS, & GANGR, W/O ABSCS SNOMED Code(s): 12608182
[2022-07-25] MEDS ORDERED: HEPARIN SODIUM,PORCINE/PF 5,000 UNIT/0.5 ML SYRINGE SQ ONE (11:06)
[2022-07-25] MEDS ORDERED: HEPARIN SODIUM,PORCINE 5,000 UNIT/ML 1 ML VIAL SQ ONE (11:08)
[2022-07-25] MEDS ORDERED: LIDOCAINE 2% INJ 20 MG/ML (2 ML VIAL) ONE (11:37)
[2022-07-25] MEDS ORDERED: ONDANSETRON 4 MG/2 ML VIAL ONE (11:37)
[2022-07-25] MEDS ORDERED: SUCCINYLCHOLINE CHLORIDE 200 MG/10 ML VIAL IV ONE (11:37)
[2022-07-25] MEDS ORDERED: MIDAZOLAM 2 MG/2 ML VIAL ONE (11:37)
[2022-07-25] MEDS ORDERED: fentaNYL (PF) 50 MCG/ML 2 ML AMP ONE (11:37)
[2022-07-25] MEDS ORDERED: KETOROLAC 15 MG/ML 1 ML VIAL ONE (11:37)
[2022-07-25] MEDS ORDERED: PROPOFOL 10 MG/ML 20 ML VIAL IV ONE (11:37)
[2022-07-25] MEDS ORDERED: DEXAMETHASONE SOD PHOS (MDV) 100 MG/10 ML VIAL ONE (11:37)
[2022-07-25] MEDS ORDERED: ROCURONIUM 10 MG/ML (5 ML VIAL) IV ONE (11:37)
[2022-07-25] MEDS ORDERED: BUPIVACAIN-EPI 0.25%-1:200,000 30 ML VIAL SQ ONE ×2 (12:05)
[2022-07-25] MEDS ORDERED: GABAPENTIN 300 MG CAP PO PRN (13:09)
[2022-07-25] MEDS ORDERED: ONDANSETRON 4 MG/2 ML VIAL IVP PRN (13:10)
--- NOTE | 2022-07-25 13:16 | P.OP ---
Date of Procedure: 07/25/22 Procedure(s) Performed: PREOPERATIVE DIAGNOSIS: Ruptured appendicitis POSTOPERATIVE DIAGNOSIS: Ruptured gangrenous appendicitis PROCEDURE: Laparoscopic appendectomy SURGEON: Sulema EBL: And 20 mL ANESTHESIA: General COMPLICATIONS: None OPERATIVE PROCEDURE: The patient was brought and placed on the operating table in the supine position. The patient was placed under general anesthesia. The abdomen was prepped and draped in the usual sterile fashion. A large area of firmness was palpable in the right midabdomen before incision was made. A small curvilinear infraumbilical incision was made. The fascia was retracted anteriorly with Kayy forceps. The Veress needle was advanced into the peritoneal cavity. The saline drop test was normal. Insufflation took place to 15 mmHg. A 5 mm trocar was then placed. An additional 5 mm suprapubic trocar was placed under direct visualization as well as a 12 mm left lower quadrant trocar under direct visualization. The cecum was retracted medially. I was able to visualize the junction between the appendix and the cecum. Approximate 1 cm distal to the junction of the appendix appeared gangrenous with an area of perforation. Solid stool was suctioned away from the perforation site. Further blunt dissection brought the cecum and appendix medially. The appendix was somewhat retroperitoneum and able to be mobilized further using blunt dissection. The patient had a 2-3 cm segment of the proximal appendix that was gangrenous with multiple small holes noted. The base of the appendix was able to be divided using a linear endoscopic blue load stapler. The mesoappendix was then divided using the LigaSure device. The appendix was brought out from the abdominal cavity using a Endo Catch bag. The operative site was carefully irrigated. No further bleeding or purulence was seen. A drain was brought into the abdomen placed along the right gutter behind the cecum. This exited from the suprapubic 5 mm trocar site. This was sutured in place using a 3-0 silk stitch. The 12 mm fascial defect was closed using a Arianaon 0 Vicryl stitch. The skin at all 3 sites was closed using 4-0 Monocryl sutures. Skin glue was then applied. DISPOSITION: Stable to recovery room
[2022-07-25] MEDS: D5-0.45% NACL WITH KCL 20MEQ/L 1,000 ML IV SCH ×3 (14:44→23:36)
[2022-07-25] MEDS: HEPARIN SODIUM,PORCINE/PF 5,000 UNIT/0.5 ML SYRINGE SQ SCH ×2 (14:44→23:33)
[2022-07-25] MEDS: metroNIDAZOLE-NS PMX 500 MG in SALINE 1 100ML.BAG IVPB SCH ×2 (14:44→23:32)
[2022-07-25] MEDS: PIPERACILLIN-TAZOBACTAM 3.375 GM in SODIUM CHLORIDE 0.9% 100 ML IVPB SCH ×2 (17:02→23:33)
[2022-07-25] MEDS: KETOROLAC 15 MG/ML 1 ML VIAL IVP SCH ×2 (17:02→23:33)
--- NOTE | 2022-07-25 20:09 | P.CONS ---
History of Present Illness - Reason for Consult Consult date: 07/25/22 Medical management - Chief Complaint Abdominal pain - History of Present Illness 47-year-old male with a past medical history of hyperlipidemia, GERD, presents emergency department for right lower quadrant abdominal pain. The patient stated this abdominal pain was present since Tuesday and has been persistent ever since. The patient stated that the pain became acutely worse overnight 3 came to the emergency department. The patient did have one episode of vomiting and has had diarrhea. The patient is also had a decreased appetite over the last several days. The patient denied any other acute critical points at this time. The patient denied any current fevers or chills. The patient denies any acute changes in vision or hearing, no dysphagia or odynophagia, no chest pain or shortness of breath, no dysuria or hematuria, no headache, no runny nose, no rectal bleeding or melena, no unexplained weight loss Chest x-ray is negative for any acute cardiopulmonary disease CAT scan was performed showing acute appendicitis with rupture and pericolonic gas collection. There appears to be an appendicolith present. Laboratory completed reveals WBC of 20.8, hemoglobin of 15.6 and platelet count of 158, sodium 135, potassium 3.3, BUN/creatinine of 16/1.05, blood glucose of 133, total bilirubin of 1.4, ALT slightly elevated at 50 Review of Systems REVIEW OF SYSTEMS: CONSTITUTIONAL: No fever, no malaise, no fatigue. HEENT: No recent visual problems or hearing problems. Denied any sore throat. CARDIOVASCULAR: No chest pain, orthopnea, PND, no palpitations, no syncope. PULMONARY: No shortness of breath, no cough, no hemoptysis. GASTROINTESTINAL: No diarrhea, no nausea, no vomiting, no abdominal pain. NEUROLOGICAL: No headaches, no weakness, no numbness. HEMATOLOGICAL: Denies any bleeding or petechiae. GENITOURINARY: Denies any burning micturition, frequency, or urgency. MUSCULOSKELETAL/RHEUMATOLOGICAL: Denies any joint pain, swelling, or any muscle pain. ENDOCRINE: Denies any polyuria or polydipsia. The rest of the 14-point review of systems is negative. Past Medical History Past Medical History: GERD/Reflux, Hyperlipidemia Additional Past Medical History / Comment(s): GALLBLADDER ISSUES History of Any Multi-Drug Resistant Organisms: None Reported Past Surgical History: Cholecystectomy, Orthopedic Surgery Additional Past Surgical History / Comment(s): right knee and hip SX Past Anesthesia/Blood Transfusion Reactions: No Reported Reaction Past Psychological History: No Psychological Hx Reported Smoking Status: Current every day smoker Past Alcohol Use History: Occasional Past Drug Use History: None Reported - Past Family History Mother Family Medical History: No Reported History Father Family Medical History: No Reported History Medications and Allergies Home Medications Medication Instructions Recorded Confirmed Type Atorvastatin [Lipitor] 40 mg PO DAILY 11/13/21 07/25/22 History Gabapentin [Neurontin] 300 mg PO BID PRN 11/13/21 07/25/22 History Omeprazole 40 mg PO DAILY 11/13/21 07/25/22 History buPROPion HCL [Wellbutrin XL] 300 mg PO DAILY 11/13/21 07/25/22 History Allergies Allergy/AdvReac Type Severity Reaction Status Date / Time No Known Allergies Allergy Verified 07/25/22 16:52 Physical Exam Vitals: Vital Signs Temp Pulse Pulse Resp BP BP Pulse Ox 07/25/22 14:31 93 114/76 90 L 07/25/22 14:16 98.6 F 95 18 107/70 93 L 07/25/22 14:05 100 20 106/59 96 07/25/22 13:45 102 H 18 112/58 92 L 07/25/22 13:30 100 17 109/60 97 07/25/22 13:15 101 H 15 115/63 97 07/25/22 13:00 98.8 F 105 H 18 119/67 96 07/25/22 10:45 98.2 F 98 16 122/75 98 07/25/22 08:03 100.5 F H 07/25/22 06:52 102.5 F H 107 H 16 117/68 92 L 07/25/22 05:26 88 15 137/67 99 07/25/22 02:26 98.6 F 112 H 18 101/70 97 Intake and Output 07/25/22 07/25/22 07/25/22 06:59 14:59 22:59 Intake Total 1400 Output Total 20 Balance 1380 Intake: IV 1350 Intake, IV Titration 50 Amount ceFAZolin 2 gm In Sodium 50 Chloride 0.9% 50 ml @ 100 mls/hr IVPB ONCE ONE Rx# :[id number] Output: Estimated Blood Loss 20 Other: Weight 79.379 kg General appearance: alert, in distress (Mild distress secondary to abdominal pain) Head exam: Present: atraumatic, normocephalic, normal inspection Eye exam: Present: normal appearance, PERRL Pupils: Present: normal accommodation ENT exam: Present: normal exam, normal oropharynx, mucous membranes moist Neck exam: Present: normal inspection, full ROM Respiratory exam: Present: normal lung sounds bilaterally Cardiovascular Exam: Present: regular rate, normal rhythm, normal heart sounds GI/Abdominal exam: Present: tenderness (Tenderness noted in the right lower quadrant) Extremities exam: Present: normal inspection, full ROM Back exam: Present: normal inspection, full ROM Neurological exam: Present: alert, oriented X3, CN II-XII intact Psychiatric exam: Present: normal affect, normal mood Skin exam: Present: warm, dry Results CBC & Chem 7: 07/25/22 03:13 07/25/22 03:13 Labs: Abnormal Lab Results - Last 24 Hours (Table) 07/25/22 07/25/22 07/25/22 Range/Units 03:13 03:13 03:13 WBC 20.8 H (3.8-10.6) k/uL Neutrophils # (Manual) 18.00 H (1.3-7.7) k/uL Monocytes # (Manual) 1.66 H (0-1.0) k/uL PT 12.2 H (9.0-12.0) sec INR 1.2 H (<1.2) Sodium 135 L (137-145) mmol/L Potassium 3.3 L (3.5-5.1) mmol/L Carbon Dioxide 21 L (22-30) mmol/L Glucose 133 H (74-99) mg/dL Total Bilirubin 1.4 H (0.2-1.3) mg/dL ALT 50 H (4-49) U/L Ur Specific [place] (1.001-1.035) Urine Protein (Negative) Urine Blood (Negative) Urine Mucus (None) /hpf 07/25/22 Range/Units 07:39 WBC (3.8-10.6) k/uL Neutrophils # (Manual) (1.3-7.7) k/uL Monocytes # (Manual) (0-1.0) k/uL PT (9.0-12.0) sec INR (<1.2) Sodium (137-145) mmol/L Potassium (3.5-5.1) mmol/L Carbon Dioxide (22-30) mmol/L Glucose (74-99) mg/dL Total Bilirubin (0.2-1.3) mg/dL ALT (4-49) U/L Ur Specific [place] >1.050 H (1.001-1.035) Urine Protein 1+ H (Negative) Urine Blood Trace H (Negative) Urine Mucus Occasional H (None) /hpf Assessment and Plan Assessment: 1. Abdominal pain/ruptured appendicitis; patient is status post laparoscopic appendectomy; POD #0 - CT of abdomen reveals extensive inflammatory changes occur quadrant with extraluminal air in the lateral paracolic gutter consistent with appendicitis with rupture - Patient was evaluated by general surgery and was immediately taken to or for laparoscopic appendectomy - Your management 2. Hyperlipidemia; patient takes Lipitor 40 mg daily; we will resume once oral intake is established 3. Transaminitis; possibly related to infection versus statin therapy; we will monitor liver enzymes 4. Gastroesophageal reflux disease; omeprazole 40 mg daily 5. Depression; Wellbutrin 300 mg daily DVT prophylaxis; SCDs CODE STATUS; full code
[2022-07-25] MEDS: HYDROcodone/APAP 5-325MG 1 EACH TAB PO PRN (23:33)
[2022-07-26] MEDS: HYDROmorphone 1 MG/ML 1 ML SYRINGE IVP PRN ×4 (00:56→17:55)
[2022-07-26] MEDS: KETOROLAC 15 MG/ML 1 ML VIAL IVP SCH ×4 (05:07→23:59)
[2022-07-26] MEDS: metroNIDAZOLE-NS PMX 500 MG in SALINE 1 100ML.BAG IVPB SCH ×3 (08:43→23:53)
[2022-07-26 08:46] LABS: HCT 40.7 % (39.6-50.0); MCH 28.5 pg (27.0-32.0); MCHC 31.9 g/dL (32.0-37.0); MCV 89.3 fL (80.0-97.0); Mean Platelet Volume 10.8 fL (9.5-12.2); NRBC Per 100 WBC 0 /100 WBCS (0.0-0.0); Platelet Count 163 X 10*3/uL (140-440); RBC 4.56 X 10*6/uL (4.40-5.60); RDW 13.3 % (11.5-14.5); WBC 21.74 X 10*3/uL (4.50-10.00)
[2022-07-26] MEDS: PANTOPRAZOLE 40 MG/10 ML VIAL IV SCH (08:54)
[2022-07-26] MEDS: buPROPion XL 300 MG TAB.ER.24H PO SCH (08:54)
[2022-07-26] MEDS: HYDROcodone/APAP 5-325MG 1 EACH TAB PO PRN ×2 (08:54→23:55)
[2022-07-26] MEDS: PIPERACILLIN-TAZOBACTAM 3.375 GM in SODIUM CHLORIDE 0.9% 100 ML IVPB SCH ×3 (08:54→23:53)
[2022-07-26] MEDS: HEPARIN SODIUM,PORCINE/PF 5,000 UNIT/0.5 ML SYRINGE SQ SCH ×3 (08:55→23:59)
[2022-07-26 09:02] LABS: African American GFR (CKD) 102.7 (60.0-200.0); Anion Gap 9.3 mmol/L (10.00-18.00); BUN/Creat Ratio 13.2 Ratio (12.00-20.00); Blood Urea Nitrogen 13.2 mg/dL (9.0-27.0); Calcium 8.2 mg/dL (8.7-10.3); Carbon Dioxide 24.7 mmol/L (20.0-27.5); Non-African American GFR(CKD) 88.6 (60.0-200.0); Potassium 3.5 mmol/L (3.5-5.5)
[2022-07-26] MEDS: NICOTINE 14MG/24HR PATCH TRANSDERM SCH (09:06)
[2022-07-26 10:12] LABS: Basophils # (A) 0.02 X 10*3/uL (0.00-0.10); Basophils % (A) 0.1 %; Eosinophils # (A) 0 X 10*3/uL (0.04-0.35); Eosinophils % (A) 0 %; Immature Grans, Automated 1.7 %; Lymphocytes # (A) 0.68 X 10*3/uL (0.90-5.00); Lymphocytes % (A) 3.1 %; Monocytes # (A) 1.68 X 10*3/uL (0.20-1.00); Monocytes % (A) 7.7 %; Neutrophils % (A) 87.4 %
--- NOTE | 2022-07-26 11:46 | P.PN ---
Subjective 47-year-old male with a past medical history of hyperlipidemia, GERD, presents emergency department for right lower quadrant abdominal pain. The patient stated this abdominal pain was present since Tuesday and has been persistent ever since. The patient stated that the pain became acutely worse overnight 3 came to the emergency department. The patient did have one episode of vomiting and has had diarrhea. The patient is also had a decreased appetite over the last several days. The patient denied any other acute critical points at this time. The patient denied any current fevers or chills. The patient denies any acute changes in vision or hearing, no dysphagia or odynophagia, no chest pain or shortness of breath, no dysuria or hematuria, no headache, no runny nose, no rectal bleeding or melena, no unexplained weight loss Chest x-ray is negative for any acute cardiopulmonary disease CAT scan was performed showing acute appendicitis with rupture and pericolonic gas collection. There appears to be an appendicolith present. Laboratory completed reveals WBC of 20.8, hemoglobin of 15.6 and platelet count of 158, sodium 135, potassium 3.3, BUN/creatinine of 16/1.05, blood glucose of 133, total bilirubin of 1.4, ALT slightly elevated at 50 1 07/26/2022 Patient status post laparoscopic appendectomy for ruptured appendix which was gangrenous also postsurgery note, he had the procedure yesterday. Today postop day #1. His pain is [id number], 60/10 in severity, he is on liquid diet with no vomiting, no bowel movement, passing gas. , He is on Zosyn and Flagyl with leukocytosis of 20,000 Consult infectious disease At nicotine patch Continue with gentle hydration Objective - Vital Signs Vital signs: Vital Signs Temp 97.9 F 07/26/22 01:14 Pulse 78 07/26/22 07:27 Resp 16 07/26/22 07:27 BP 100/56 07/26/22 07:27 Pulse Ox 98 07/26/22 07:27 FiO2 Intake & Output 07/25/22 07/26/22 07/26/22 18:59 06:59 18:59 Intake Total 1400 1700 Output Total 20 20 Balance 1380 1680 Intake: IV 1350 Intake, IV Titration 50 1700 Amount D5-0.45% NaCl with KCl 1500 20Meq/l 1,000 ml @ 125 mls/hr IV .Q8H [facility] Rx#: [id number] Piperacillin-Tazobactam 3 100 .375 gm In Sodium Chloride 0.9% 100 ml @ 25 mls/hr IVPB Q8HR [facility] Rx# :[id number] ceFAZolin 2 gm In Sodium 50 Chloride 0.9% 50 ml @ 100 mls/hr IVPB ONCE ONE Rx# :[id number] metroNIDAZOLE-NS PMX 500 100 mg In Saline 1 100ml.bag @ 100 mls/hr IVPB Q8HR [facility] Rx#:[id number] Output: Drainage 20 Lower Anterior Abdomen 20 Estimated Blood Loss 20 Other: # Voids 2 - Exam GENERAL: The patient is alert and oriented x3, not in any acute distress. Well developed, well nourished. HEENT: Pupils are round and equally reacting to light. EOMI. No scleral icterus. No conjunctival pallor. Normocephalic, atraumatic. No pharyngeal erythema. No thyromegaly. CARDIOVASCULAR: S1 and S2 present. No murmurs, rubs, or gallops. PULMONARY: Chest is clear to auscultation, no wheezing or crackles. -ABDOMEN: Soft, nontender, nondistended, normoactive bowel sounds. No palpable organomegaly. Laparoscopic once her clothes and healing MUSCULOSKELETAL: No joint swelling or deformity. EXTREMITIES: No cyanosis, clubbing, or pedal edema. NEUROLOGICAL: Gross neurological examination did not reveal any focal deficits. SKIN: No rashes. no petechiae. - Labs CBC & Chem 7: 07/26/22 03:46 07/26/22 03:46 Labs: Abnormal Lab Results - Last 24 Hours (Table) 07/26/22 07/26/22 Range/Units 03:46 03:46 WBC 21.74 H (4.50-10.00) X 10*3/uL MCHC 31.9 L (32.0-37.0) g/dL Immature Gran # 0.36 H (0.00-0.04) X 10*3/uL Neutrophils # 19.00 H (1.80-7.70) X 10*3/uL Lymphocytes # 0.68 L (0.90-5.00) X 10*3/uL Monocytes # 1.68 H (0.20-1.00) X 10*3/uL Eosinophils # 0 L (0.04-0.35) X 10*3/uL Anion Gap 9.30 L (10.00-18.00) mmol/L Calcium 8.2 L (8.7-10.3) mg/dL Assessment and Plan Assessment: 1. Abdominal pain/ruptured appendicitis; patient is status post laparoscopic appendectomy; POD #1 - CT of abdomen reveals extensive inflammatory changes occur quadrant with extraluminal air in the lateral paracolic gutter consistent with appendicitis with rupture - Patient was evaluated by general surgery, he is status post laparoscopic appendectomy -Consult infectious disease team 2. Sepsis with fever and leukocytosis 3. Transaminitis; possibly related to infection versus statin therapy; we will monitor liver enzymes 4. Gastroesophageal reflux disease; omeprazole 40 mg daily 5. Depression; Wellbutrin 300 mg daily 6. Hyperlipidemia; patient takes Lipitor 40 mg daily; we will resume once oral intake is established DVT prophylaxis; SCDs GI prophylaxis: Protonix CODE STATUS; full code
[2022-07-26] MEDS ORDERED: POTASSIUM CHLORIDE ER 20 MEQ TAB.ER PO STA (13:15)
--- NOTE | 2022-07-26 13:19 | P.PN ---
Subjective Progress Note Date: 07/26/22 CHIEF COMPLAINT: Ruptured appendicitis HISTORY OF PRESENT ILLNESS: Patient's postop day #1 status post laparoscopic appendectomy. Patient reports that his pain is controlled. He denies any nausea or vomiting. He did have flatus and bowel movement. He does complain of some abdominal bloating. DARCIE drain with 8 mL serosanguineous output. Afebrile. WBC is 21 Hgb 13 platelets 163 sodium 138 potassium 3.5 creatinine 1.0 PHYSICAL EXAM: VITAL SIGNS: Reviewed. GENERAL: Well-developed in no acute distress. HEENT: No sclera icterus. Extraocular movements grossly intact. Moist buccal mucosa. Head is atraumatic, normocephalic. ABDOMEN: Soft. Distended incision sites clean dry and intact NEUROLOGIC: Alert and oriented. Cranial nerves II through XII grossly intact. ASSESSMENT: 1. Ruptured gangrenous appendicitis status post laparoscopic appendectomy 2. Hypokalemia PLAN: -Continue clear liquid diet -Replace potassium -Encourage patient to ambulate -Encourage patient to use incentive spirometer -Continue pain management -Continue IV fluids -Continue antibiotics -Repeat labs in a.m. -DVT prophylaxis subcu heparin and GI prophylaxis Protonix Physician Car Varnisher note has been reviewed by physician. Signing provider agrees with the documented findings, assessment, and plan of care. I have personally seen and examined the patient, reviewed the [facility] [employer] /PAs history, exam and MDM and agree with the assessment and plan as written. Based on total visit time, I have performed more than 50% of the visit. As above: Patient doing well today. He is distended. Keep on clear liquids for now. Continue ambulation. Keep DARCIE in place. Continue antibiotics. Objective - Vital Signs Vital signs: Vital Signs Temp 97.9 F 07/26/22 01:14 Pulse 78 07/26/22 07:27 Resp 16 07/26/22 07:27 BP 100/56 07/26/22 07:27 Pulse Ox 98 07/26/22 07:27 FiO2 Intake & Output 07/25/22 07/26/22 07/26/22 18:59 06:59 18:59 Intake Total 1400 1700 Output Total 20 20 Balance 1380 1680 Intake: IV 1350 Intake, IV Titration 50 1700 Amount D5-0.45% NaCl with KCl 1500 20Meq/l 1,000 ml @ 125 mls/hr IV .Q8H [facility] Rx#: [id number] Piperacillin-Tazobactam 3 100 .375 gm In Sodium Chloride 0.9% 100 ml @ 25 mls/hr IVPB Q8HR [facility] Rx# :[id number] ceFAZolin 2 gm In Sodium 50 Chloride 0.9% 50 ml @ 100 mls/hr IVPB ONCE ONE Rx# :[id number] metroNIDAZOLE-NS PMX 500 100 mg In Saline 1 100ml.bag @ 100 mls/hr IVPB Q8HR [facility] Rx#:[id number] Output: Drainage 20 Lower Anterior Abdomen 20 Estimated Blood Loss 20 Other: # Voids 2 - Labs CBC & Chem 7: 07/26/22 03:46 07/26/22 03:46 Labs: Abnormal Lab Results - Last 24 Hours (Table) 07/26/22 07/26/22 Range/Units 03:46 03:46 WBC 21.74 H (4.50-10.00) X 10*3/uL MCHC 31.9 L (32.0-37.0) g/dL Immature Gran # 0.36 H (0.00-0.04) X 10*3/uL Neutrophils # 19.00 H (1.80-7.70) X 10*3/uL Lymphocytes # 0.68 L (0.90-5.00) X 10*3/uL Monocytes # 1.68 H (0.20-1.00) X 10*3/uL Eosinophils # 0 L (0.04-0.35) X 10*3/uL Anion Gap 9.30 L (10.00-18.00) mmol/L Calcium 8.2 L (8.7-10.3) mg/dL
--- NOTE | 2022-07-26 21:53 | P.CONS ---
History of Present Illness - Reason for Consult Consult date: 07/26/22 Antibiotic management Requesting physician: Neo E Morgan - Chief Complaint Abdominal pain x 2 days - History of Present Illness Patient is a 47-year-old male with a past medical history significant for hyperlipidemia GERD presenting to the ER yesterday child care specialist for evaluation of abdominal pain which apparently started 2 days before presentation to the hospital the patient pain was a lesion in the mid abdominal area subsequently radiating to the right lower quadrant patient who described the pain to be sharp almost 10 out of 10 in severity by the time he presented to the hospital he did have an episode of nausea and vomiting but no diarrhea or consti pation the shoulder presentation to the hospital was febrile with a temperature of 102F, the patient was tachycardic and did have elevated white count of 20,000 which is up to 21,000 today patient did have CT of abdominal pelvis that was suspicious for possible ruptured appendicitis patient was taken to the OR in this patient who was noticed to have gangrenous appendicitis status post laparoscopic appendectomy patient has been started on Zosyn and Flagyl infectious disease was consulted today for further management of antibiotic therapy Review of Systems Positive point has been mentioned in the HPI rest of the systems are negative Past Medical History Past Medical History: GERD/Reflux, Hyperlipidemia Additional Past Medical History / Comment(s): GALLBLADDER ISSUES History of Any Multi-Drug Resistant Organisms: None Reported Past Surgical History: Cholecystectomy, Orthopedic Surgery Additional Past Surgical History / Comment(s): right knee and hip SX Past Anesthesia/Blood Transfusion Reactions: No Reported Reaction Past Psychological History: No Psychological Hx Reported Smoking Status: Current every day smoker Past Alcohol Use History: Occasional Past Drug Use History: None Reported - Past Family History Mother Family Medical History: No Reported History Father Family Medical History: No Reported History Medications and Allergies Home Medications Medication Instructions Recorded Confirmed Type Atorvastatin [Lipitor] 40 mg PO DAILY 11/13/21 07/25/22 History Gabapentin [Neurontin] 300 mg PO BID PRN 11/13/21 07/25/22 History Omeprazole 40 mg PO DAILY 11/13/21 07/25/22 History buPROPion HCL [Wellbutrin XL] 300 mg PO DAILY 11/13/21 07/25/22 History HYDROcodone/APAP 7.5-325MG [[employer] 1 tab PO Q4H PRN 3 Days #18 tab 07/30/22 Rx 7.5-325] Allergies Allergy/AdvReac Type Severity Reaction Status Date / Time No Known Allergies Allergy Verified 07/25/22 16:52 Physical Exam Vitals: Vital Signs Temp Pulse Resp BP Pulse Ox 07/26/22 07:27 78 16 100/56 98 07/26/22 07:10 83 18 07/26/22 01:14 97.9 F 83 18 92/50 94 L 07/25/22 19:15 97.5 F L 91 17 105/63 96 07/25/22 14:31 93 114/76 90 L 07/25/22 14:16 98.6 F 95 18 107/70 93 L 07/25/22 14:05 100 20 106/59 96 07/25/22 13:45 102 H 18 112/58 92 L 07/25/22 13:30 100 17 109/60 97 07/25/22 13:15 101 H 15 115/63 97 07/25/22 13:00 98.8 F 105 H 18 119/67 96 Intake and Output 07/25/22 07/26/22 07/26/22 22:59 06:59 14:59 Intake Total 1700 Output Total 20 Balance -20 1700 Intake: Intake, IV Titration 1700 Amount D5-0.45% NaCl with KCl 1500 20Meq/l 1,000 ml @ 125 mls/hr IV .Q8H [facility] Rx#: [id number] Piperacillin-Tazobactam 3 100 .375 gm In Sodium Chloride 0.9% 100 ml @ 25 mls/hr IVPB Q8HR [facility] Rx# :[id number] metroNIDAZOLE-NS PMX 500 100 mg In Saline 1 100ml.bag @ 100 mls/hr IVPB Q8HR [facility] Rx#:[id number] Output: Drainage 20 Lower Anterior Abdomen 20 Other: # Voids 2 GENERAL DESCRIPTION: Middle-aged male up in the room, no distress. No tachypnea or accessory muscle of respiration use. HEENT: Shows Pallor , no scleral icterus. Oral mucous membrane is dry. No pharyngeal erythema or thrush NECK: Trachea central, no thyromegaly. LUNGS: Unlabored breathing. Clear to auscultation anteriorly. No wheeze or crackle. HEART: S1, S2, regular rate and rhythm. No loud murmur ABDOMEN: Soft, abdominal incision is intact mild distention and tenderness EXTREMITIES: No edema of feet. SKIN: No rash, no masses palpable. NEUROLOGICAL: The patient is awake, alert, oriented x3, mood and affect normal. Results CBC & Chem 7: 07/31/22 07:47 07/29/22 07:47 Labs: Abnormal Lab Results - Last 24 Hours (Table) 07/26/22 07/26/22 Range/Units 03:46 03:46 WBC 21.74 H (4.50-10.00) X 10*3/uL MCHC 31.9 L (32.0-37.0) g/dL Immature Gran # 0.36 H (0.00-0.04) X 10*3/uL Neutrophils # 19.00 H (1.80-7.70) X 10*3/uL Lymphocytes # 0.68 L (0.90-5.00) X 10*3/uL Monocytes # 1.68 H (0.20-1.00) X 10*3/uL Eosinophils # 0 L (0.04-0.35) X 10*3/uL Anion Gap 9.30 L (10.00-18.00) mmol/L Calcium 8.2 L (8.7-10.3) mg/dL Assessment and Plan (1) Acute gangrenous appendicitis with perforation and peritonitis Current Visit: Yes Status: Acute Code(s): K35.32 - AC APPENDICITIS W PERF, LOC PERITONITIS, & GANGR, W/O ABSCS SNOMED Code(s): 83888671 Plan: 1patient with the hospital with sepsis in this patient who did have fever tachycardia and elevated white count secondary to acute gangrenous appendicitis in this patient who is status post laparoscopic appendectomy will need to cover for enteric gram-negative both anaerobes and anaerobes 2patient to continue with the Zosyn or watching his clinical course closely We will follow on clinical condition and cultures to further adjust medication if needed Thank you for this consultation will follow this patient with you she Time with Patient: Greater than 30
[2022-07-26] MEDS: D5-0.45% NACL WITH KCL 20MEQ/L 1,000 ML IV SCH ×2 (22:10→23:55)
[2022-07-27] MEDS: HYDROcodone/APAP 5-325MG 1 EACH TAB PO PRN ×3 (04:43→20:20)
[2022-07-27] MEDS: KETOROLAC 15 MG/ML 1 ML VIAL IVP SCH ×2 (06:34→11:24)
[2022-07-27] MEDS: PIPERACILLIN-TAZOBACTAM 3.375 GM in SODIUM CHLORIDE 0.9% 100 ML IVPB SCH ×2 (08:22→15:17)
[2022-07-27] MEDS: HEPARIN SODIUM,PORCINE/PF 5,000 UNIT/0.5 ML SYRINGE SQ SCH ×2 (08:22→15:22)
[2022-07-27] MEDS: D5-0.45% NACL WITH KCL 20MEQ/L 1,000 ML IV SCH (08:22)
[2022-07-27] MEDS: buPROPion XL 300 MG TAB.ER.24H PO SCH (08:23)
[2022-07-27] MEDS: NICOTINE 14MG/24HR PATCH TRANSDERM SCH (08:23)
[2022-07-27] MEDS: PANTOPRAZOLE 40 MG/10 ML VIAL IV SCH (08:26)
[2022-07-27 08:56] LABS: Basophils # (A) 0.01 X 10*3/uL (0.00-0.10); Basophils % (A) 0.1 %; Eosinophils # (A) 0 X 10*3/uL (0.04-0.35); Eosinophils % (A) 0 %; HCT 36.2 % (39.6-50.0); HGB 11.7 g/dL (13.0-17.0); Immature Grans, Automated 0.5 %; Lymphocytes # (A) 0.97 X 10*3/uL (0.90-5.00); Lymphocytes % (A) 7.6 %; MCH 28.7 pg (27.0-32.0); MCHC 32.3 g/dL (32.0-37.0); MCV 88.9 fL (80.0-97.0); Mean Platelet Volume 11.2 fL (9.5-12.2); Monocytes # (A) 0.96 X 10*3/uL (0.20-1.00); Monocytes % (A) 7.5 %; NRBC Per 100 WBC 0 /100 WBCS (0.0-0.0); Neutrophils # (A) 10.72 X 10*3/uL (1.80-7.70); Neutrophils % (A) 84.3 %; Platelet Count 158 X 10*3/uL (140-440); RBC 4.07 X 10*6/uL (4.40-5.60); RDW 13.4 % (11.5-14.5); WBC 12.73 X 10*3/uL (4.50-10.00)
[2022-07-27 09:28] LABS: African American GFR (CKD) 116.6 (60.0-200.0); Anion Gap 7.8 mmol/L (10.00-18.00); BUN/Creat Ratio 10.89 Ratio (12.00-20.00); Blood Urea Nitrogen 9.8 mg/dL (9.0-27.0); Calcium 8.1 mg/dL (8.7-10.3); Carbon Dioxide 24.2 mmol/L (20.0-27.5); Non-African American GFR(CKD) 100.6 (60.0-200.0)
[2022-07-27] MEDS: HYDROmorphone 1 MG/ML 1 ML SYRINGE IVP PRN (09:48)
--- NOTE | 2022-07-27 12:06 | P.PN ---
Subjective 47-year-old male with a past medical history of hyperlipidemia, GERD, presents emergency department for right lower quadrant abdominal pain. The patient stated this abdominal pain was present since Tuesday and has been persistent ever since. The patient stated that the pain became acutely worse overnight 3 came to the emergency department. The patient did have one episode of vomiting and has had diarrhea. The patient is also had a decreased appetite over the last several days. The patient denied any other acute critical points at this time. The patient denied any current fevers or chills. The patient denies any acute changes in vision or hearing, no dysphagia or odynophagia, no chest pain or shortness of breath, no dysuria or hematuria, no headache, no runny nose, no rectal bleeding or melena, no unexplained weight loss Chest x-ray is negative for any acute cardiopulmonary disease CAT scan was performed showing acute appendicitis with rupture and pericolonic gas collection. There appears to be an appendicolith present. Laboratory completed reveals WBC of 20.8, hemoglobin of 15.6 and platelet count of 158, sodium 135, potassium 3.3, BUN/creatinine of 16/1.05, blood glucose of 133, total bilirubin of 1.4, ALT slightly elevated at 50 07/26/2022 Patient status post laparoscopic appendectomy for ruptured appendix which was gangrenous also postsurgery note, he had the procedure yesterday. Today postop day #1. His pain is [id number], 60/10 in severity, he is on liquid diet with no vomiting, no bowel movement, passing gas. , He is on Zosyn and Flagyl with leukocytosis of 20,000 Consult infectious disease At [facility] patch Continue with gentle hydration 07/27/2022 Patient is on full liquid diet, tolerates that well Mild abdominal pain, 60/10 wound closed Normal bowel movement yesterday. He remains on Zosyn. Flagyl, stopped Objective - Vital Signs Vital signs: Vital Signs Temp 97.7 F 07/27/22 07:45 Pulse 78 07/27/22 07:45 Resp 16 07/27/22 07:45 BP 151/91 07/27/22 07:45 Pulse Ox 99 07/27/22 07:45 FiO2 Intake & Output 07/26/22 07/27/22 07/27/22 18:59 06:59 18:59 Intake Total 1080 520 Output Total 8 Balance 1072 520 Intake: Intake, IV Titration 200 Amount Piperacillin-Tazobactam 3 100 .375 gm In Sodium Chloride 0.9% 100 ml @ 25 mls/hr IVPB Q8HR [facility] Rx# :[id number] metroNIDAZOLE-NS PMX 500 100 mg In Saline 1 100ml.bag @ 100 mls/hr IVPB Q8HR [facility] Rx#:[id number] Oral 1080 320 Output: Drainage 8 Lower Anterior Abdomen 8 Other: # Voids 4 3 - Exam GENERAL: The patient is alert and oriented x3, not in any acute distress. Well developed, well nourished. HEENT: Pupils are round and equally reacting to light. EOMI. No scleral icterus. No conjunctival pallor. Normocephalic, atraumatic. No pharyngeal erythema. No thyromegaly. CARDIOVASCULAR: S1 and S2 present. No murmurs, rubs, or gallops. PULMONARY: Chest is clear to auscultation, no wheezing or crackles. -ABDOMEN: Soft, nontender, nondistended, normoactive bowel sounds. No palpable organomegaly. Laparoscopic once her clothes and healing MUSCULOSKELETAL: No joint swelling or deformity. EXTREMITIES: No cyanosis, clubbing, or pedal edema. NEUROLOGICAL: Gross neurological examination did not reveal any focal deficits. SKIN: No rashes. no petechiae. - Labs CBC & Chem 7: 07/27/22 04:33 07/27/22 04:33 Labs: Abnormal Lab Results - Last 24 Hours (Table) 07/27/22 07/27/22 Range/Units 04:33 04:33 WBC 12.73 H (4.50-10.00) X 10*3/uL RBC 4.07 L (4.40-5.60) X 10*6/uL Hgb 11.7 L (13.0-17.0) g/dL Hct 36.2 L (39.6-50.0) % Immature Gran # 0.07 H (0.00-0.04) X 10*3/uL Neutrophils # 10.72 H (1.80-7.70) X 10*3/uL Eosinophils # 0 L (0.04-0.35) X 10*3/uL Anion Gap 7.80 L (10.00-18.00) mmol/L BUN/Creatinine Ratio 10.89 L (12.00-20.00) Ratio Glucose 120 H (70-110) mg/dL Calcium 8.1 L (8.7-10.3) mg/dL Assessment and Plan Assessment: 1. Abdominal pain/ruptured appendicitis; patient is status post laparoscopic appendectomy; POD #1 - CT of abdomen reveals extensive inflammatory changes occur quadrant with extraluminal air in the lateral paracolic gutter consistent with appendicitis with rupture - Patient was evaluated by general surgery, he is status post laparoscopic appendectomy -Consult infectious disease team 2. Sepsis with fever and leukocytosis, improving 3. Transaminitis; possibly related to infection versus statin therapy; we will monitor liver enzymes 4. Gastroesophageal reflux disease; omeprazole 40 mg daily 5. Depression; Wellbutrin 300 mg daily 6. Hyperlipidemia; patient takes Lipitor 40 mg daily; we will resume once oral intake is established DVT prophylaxis; SCDs GI prophylaxis: Protonix CODE STATUS; full code
--- NOTE | 2022-07-27 15:01 | P.PN ---
Subjective Progress Note Date: 07/27/22 CHIEF COMPLAINT: Ruptured appendicitis HISTORY OF PRESENT ILLNESS: Patient's postop day #2 status post laparoscopic appendectomy. Patient reports that his pain is controlled. He denies any nausea or vomiting. He did have flatus and bowel movements. Patient's abdominal distention is decreased. He has been up and ambulating. Afebrile. DARCIE drain with 20 mL serositis output. Nursing staff did note that it was cloudy. Afebrile. WBC is down from 21-12 HCV is 11 platelets 158 potassium 4 creatinine 0.9 PHYSICAL EXAM: VITAL SIGNS: Reviewed. GENERAL: Well-developed in no acute distress. HEENT: No sclera icterus. Extraocular movements grossly intact. Moist buccal mucosa. Head is atraumatic, normocephalic. ABDOMEN: Soft. Positive distended. incision sites clean dry and intact NEUROLOGIC: Alert and oriented. Cranial nerves II through XII grossly intact. ASSESSMENT: 1. Ruptured gangrenous appendicitis status post laparoscopic appendectomy 2. Hypokalemia resolved PLAN: -Advance diet to full liquid -Discontinue IV fluids -Encourage patient to ambulate -Encourage patient to use incentive spirometer -Continue pain management -Continue antibiotics -Repeat CBC in a.m. -Continue to monitor DARCIE drain output -DVT prophylaxis subcu heparin and GI prophylaxis Protonix Physician Wire Spooler note has been reviewed by physician. Signing provider agrees with the documented findings, assessment, and plan of care. I have personally seen and examined the patient, reviewed the CONTROL ROOM SUPERVISOR /PAs history, exam and MDM and agree with the assessment and plan as written. Based on total visit time, I have performed more than 50% of the visit. As above: Patient is doing better today. He is tolerating full liquids. He did have bowel movements. He would like to try more to eat. His labs are impr thierno. Continue ambulation. Keep drain in place. Continue antibiotics. Objective - Vital Signs Vital signs: Vital Signs Temp 98.1 F 07/27/22 13:47 Pulse 89 07/27/22 13:47 Resp 16 07/27/22 13:47 BP 118/73 07/27/22 13:47 Pulse Ox 97 07/27/22 13:47 FiO2 Intake & Output 07/26/22 07/27/22 07/27/22 18:59 06:59 18:59 Intake Total 1080 520 Output Total 8 20 Balance 1072 520 -20 Intake: Intake, IV Titration 200 Amount Piperacillin-Tazobactam 3 100 .375 gm In Sodium Chloride 0.9% 100 ml @ 25 mls/hr IVPB Q8HR [facility] Rx# :[id number] metroNIDAZOLE-NS PMX 500 100 mg In Saline 1 100ml.bag @ 100 mls/hr IVPB Q8HR [facility] Rx#:[id number] Oral 1080 320 Output: Drainage 8 20 Lower Anterior Abdomen 8 20 Other: # Voids 4 3 - Labs CBC & Chem 7: 07/27/22 04:33 07/27/22 04:33 Labs: Abnormal Lab Results - Last 24 Hours (Table) 07/27/22 07/27/22 Range/Units 04:33 04:33 WBC 12.73 H (4.50-10.00) X 10*3/uL RBC 4.07 L (4.40-5.60) X 10*6/uL Hgb 11.7 L (13.0-17.0) g/dL Hct 36.2 L (39.6-50.0) % Immature Gran # 0.07 H (0.00-0.04) X 10*3/uL Neutrophils # 10.72 H (1.80-7.70) X 10*3/uL Eosinophils # 0 L (0.04-0.35) X 10*3/uL Anion Gap 7.80 L (10.00-18.00) mmol/L BUN/Creatinine Ratio 10.89 L (12.00-20.00) Ratio Glucose 120 H (70-110) mg/dL Calcium 8.1 L (8.7-10.3) mg/dL
[2022-07-27] MEDS: ACETAMINOPHEN TAB 325 MG TAB PO PRN (20:21)
--- NOTE | 2022-07-27 21:47 | P.PN ---
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 On today's evaluation that is 07/27/2022, patient denies having any fever or any chills, the patient abdominal pain has slightly decreased in intensity patient will be started on a clear liquid and she has been tolerating no nausea no vomiting no chest pain shortness of breath or cough Objective - Vital Signs Vital signs: Vital Signs Temp 97.7 F 07/27/22 07:45 Pulse 78 07/27/22 07:45 Resp 16 07/27/22 07:45 BP 151/91 07/27/22 07:45 Pulse Ox 99 07/27/22 07:45 FiO2 Intake & Output 07/26/22 07/27/22 07/27/22 18:59 06:59 18:59 Intake Total 1080 520 Output Total 8 Balance 1072 520 Intake: Intake, IV Titration 200 Amount Piperacillin-Tazobactam 3 100 .375 gm In Sodium Chloride 0.9% 100 ml @ 25 mls/hr IVPB Q8HR [facility] Rx# :[id number] metroNIDAZOLE-NS PMX 500 100 mg In Saline 1 100ml.bag @ 100 mls/hr IVPB Q8HR [facility] Rx#:[id number] Oral 1080 320 Output: Drainage 8 Lower Anterior Abdomen 8 Other: # Voids 4 3 - Exam GENERAL DESCRIPTION: A middle-age male lying in bed in no distress RESPIRATORY SYSTEM: Unlabored breathing , decreased breath sounds at bases HEART: S1 S2 regular rate and rhythm , ABDOMEN: Soft , no tenderness EXTREMITIES: No edema feet - Labs CBC & Chem 7: 07/27/22 04:33 07/27/22 04:33 Labs: Abnormal Lab Results - Last 24 Hours (Table) 07/27/22 07/27/22 Range/Units 04:33 04:33 WBC 12.73 H (4.50-10.00) X 10*3/uL RBC 4.07 L (4.40-5.60) X 10*6/uL Hgb 11.7 L (13.0-17.0) g/dL Hct 36.2 L (39.6-50.0) % Immature Gran # 0.07 H (0.00-0.04) X 10*3/uL Neutrophils # 10.72 H (1.80-7.70) X 10*3/uL Eosinophils # 0 L (0.04-0.35) X 10*3/uL Anion Gap 7.80 L (10.00-18.00) mmol/L BUN/Creatinine Ratio 10.89 L (12.00-20.00) Ratio Glucose 120 H (70-110) mg/dL Calcium 8.1 L (8.7-10.3) mg/dL Assessment and Plan (1) Acute gangrenous appendicitis with perforation and peritonitis Current Visit: Yes Status: Acute Code(s): K35.32 - AC APPENDICITIS W PERF, LOC PERITONITIS, & GANGR, W/O ABSCS SNOMED Code(s): 48419745 Plan: 1patient with the hospital with sepsis in this patient who did have fever tachycardia and elevated white count secondary to acute gangrenous appendicitis in this patient who is status post laparoscopic appendectomy will need to cover for enteric gram-negative both anaerobes and anaerobes 2patient seemed to showing some clinical improvement and will continue with the Zosyn or watching his clinical course closely Family the bedside questions were answered Time with Patient: Less than 30
[2022-07-28] MEDS: HEPARIN SODIUM,PORCINE/PF 5,000 UNIT/0.5 ML SYRINGE SQ SCH ×5 (00:13→23:55)
[2022-07-28] MEDS: PIPERACILLIN-TAZOBACTAM 3.375 GM in SODIUM CHLORIDE 0.9% 100 ML IVPB SCH ×4 (00:14→23:50)
[2022-07-28] MEDS: ACETAMINOPHEN TAB 325 MG TAB PO PRN (01:59)
[2022-07-28] MEDS: HYDROmorphone 1 MG/ML 1 ML SYRINGE IVP PRN ×3 (02:02→18:24)
[2022-07-28] MEDS: NICOTINE 14MG/24HR PATCH TRANSDERM SCH (08:49)
[2022-07-28] MEDS: PANTOPRAZOLE 40 MG/10 ML VIAL IV SCH (08:49)
[2022-07-28] MEDS: HYDROcodone/APAP 5-325MG 1 EACH TAB PO PRN ×3 (08:49→20:18)
[2022-07-28] MEDS: buPROPion XL 300 MG TAB.ER.24H PO SCH (08:49)
[2022-07-28 09:45] LABS: Basophils # (A) 0.03 X 10*3/uL (0.00-0.10); Basophils % (A) 0.3 %; Eosinophils # (A) 0.05 X 10*3/uL (0.04-0.35); Eosinophils % (A) 0.5 %; HCT 38.9 % (39.6-50.0); HGB 12.5 g/dL (13.0-17.0); Immature Grans, Automated 1.2 %; Lymphocytes # (A) 1.02 X 10*3/uL (0.90-5.00); Lymphocytes % (A) 9.7 %; MCH 28.4 pg (27.0-32.0); MCHC 32.1 g/dL (32.0-37.0); MCV 88.4 fL (80.0-97.0); Monocytes # (A) 0.94 X 10*3/uL (0.20-1.00); Monocytes % (A) 8.9 %; NRBC Per 100 WBC 0 /100 WBCS (0.0-0.0); Neutrophils # (A) 8.38 X 10*3/uL (1.80-7.70); Neutrophils % (A) 79.4 %; Platelet Count 194 X 10*3/uL (140-440); RDW 13.5 % (11.5-14.5); WBC 10.55 X 10*3/uL (4.50-10.00)
[2022-07-28] MEDS: NYSTATIN 100,000 UNIT/ML SUSP 500,000 UNIT/5 ML CUP PO SCH ×3 (11:25→23:50)
--- NOTE | 2022-07-28 12:45 | P.PN ---
Subjective 47-year-old male with a past medical history of hyperlipidemia, GERD, presents emergency department for right lower quadrant abdominal pain. The patient stated this abdominal pain was present since Tuesday and has been persistent ever since. The patient stated that the pain became acutely worse overnight 3 came to the emergency department. The patient did have one episode of vomiting and has had diarrhea. The patient is also had a decreased appetite over the last several days. The patient denied any other acute critical points at this time. The patient denied any current fevers or chills. The patient denies any acute changes in vision or hearing, no dysphagia or odynophagia, no chest pain or shortness of breath, no dysuria or hematuria, no headache, no runny nose, no rectal bleeding or melena, no unexplained weight loss Chest x-ray is negative for any acute cardiopulmonary disease CAT scan was performed showing acute appendicitis with rupture and pericolonic gas collection. There appears to be an appendicolith present. Laboratory completed reveals WBC of 20.8, hemoglobin of 15.6 and platelet count of 158, sodium 135, potassium 3.3, BUN/creatinine of 16/1.05, blood glucose of 133, total bilirubin of 1.4, ALT slightly elevated at 50 07/26/2022 Patient status post laparoscopic appendectomy for ruptured appendix which was gangrenous also postsurgery note, he had the procedure yesterday. Today postop day #1. His pain is [id number], 60/10 in severity, he is on liquid diet with no vomiting, no bowel movement, passing gas. , He is on Zosyn and Flagyl with leukocytosis of 20,000 Consult infectious disease At [facility] patch Continue with gentle hydration 07/27/2022 Patient is on full liquid diet, tolerates that well Mild abdominal pain, 60/10 wound closed Normal bowel movement yesterday. He remains on Zosyn. Flagyl, stopped 07/28/2022 Patient tolerates liquid diet better and diet as per surgery team with no vomiting History of some residual abdominal pain. Patient also states he has a bowel movement He had low-grade fever of 99.9. He was on Zosyn. Flagyl added by surgical team today. Nystatin added for her thrush Objective - Vital Signs Vital signs: Vital Signs Temp 98.6 F 07/28/22 07:34 Pulse 78 07/28/22 07:34 Resp 16 07/28/22 07:34 BP 150/90 07/28/22 07:34 Pulse Ox 93 L 07/28/22 07:34 FiO2 Intake & Output 07/27/22 07/28/22 07/28/22 18:59 06:59 18:59 Intake Total 600 Output Total 20 40 Balance 580 -40 Intake: Intake, IV Titration 600 Amount D5-0.45% NaCl with KCl 500 20Meq/l 1,000 ml @ 125 mls/hr IV .Q8H [facility] Rx#: [id number] Piperacillin-Tazobactam 3 100 .375 gm In Sodium Chloride 0.9% 100 ml @ 25 mls/hr IVPB Q8HR [facility] Rx# :[id number] Output: Drainage 20 40 Lower Anterior Abdomen 20 40 Other: # Voids 4 - Exam GENERAL: The patient is alert and oriented x3, not in any acute distress. Well developed, well nourished. HEENT: Pupils are round and equally reacting to light. EOMI. No scleral icterus. No conjunctival pallor. Normocephalic, atraumatic. No pharyngeal erythema. No thyromegaly. CARDIOVASCULAR: S1 and S2 present. No murmurs, rubs, or gallops. PULMONARY: Chest is clear to auscultation, no wheezing or crackles. -ABDOMEN: Soft, nontender, nondistended, normoactive bowel sounds. No palpable organomegaly. Laparoscopic once her clothes and healing MUSCULOSKELETAL: No joint swelling or deformity. EXTREMITIES: No cyanosis, clubbing, or pedal edema. NEUROLOGICAL: Gross neurological examination did not reveal any focal deficits. SKIN: No rashes. no petechiae. - Labs CBC & Chem 7: 07/28/22 05:56 07/27/22 04:33 Labs: Abnormal Lab Results - Last 24 Hours (Table) 07/28/22 Range/Units 05:56 WBC 10.55 H (4.50-10.00) X 10*3/uL Hgb 12.5 L (13.0-17.0) g/dL Hct 38.9 L (39.6-50.0) % Immature Gran # 0.13 H (0.00-0.04) X 10*3/uL Neutrophils # 8.38 H (1.80-7.70) X 10*3/uL Assessment and Plan Assessment: 1. Abdominal pain/ruptured appendicitis; patient is status post laparoscopic appendectomy; - CT of abdomen reveals extensive inflammatory changes occur quadrant with extraluminal air in the lateral paracolic gutter consistent with appendicitis with rupture - Patient was evaluated by general surgery, he is status post laparoscopic appendectomy - Consult infectious disease team 2. Sepsis with fever and leukocytosis, improving 3. Hyperlipidemia; patient takes Lipitor 40 mg daily; we will resume once oral intake is established 4. Gastroesophageal reflux disease; omeprazole 40 mg daily 5. Depression; Wellbutrin 300 mg daily DVT prophylaxis; SCDs, decision about anticoagulation will be discussed with surgery team, we will defer to surgery team GI prophylaxis: Protonix CODE STATUS; full code
[2022-07-28] MEDS: metroNIDAZOLE-NS PMX 500 MG in SALINE 1 100ML.BAG IVPB SCH ×2 (13:03→20:19)
--- NOTE | 2022-07-28 13:12 | P.PN ---
Subjective Progress Note Date: 07/28/22 CHIEF COMPLAINT: Ruptured appendicitis HISTORY OF PRESENT ILLNESS: Patient's postop day #3 status post laparoscopic appendectomy. Patient reports increased pain in the right lower quadrant last night and rated it at 7 out of 10. This morning he rates his pain about 5 out of 10. He denies any nausea or vomiting. He has been having low-grade temps. He did have some drainage around the DARCIE drain site and has been yellowish in color. Low-grade temp of 99.9 last night. Temp 98.6 this morning heart rate 78 WBC is down from 12-10.55 Hgb is 12.5 platelets 194. DARCIE drain a 40 mL serosanguineous output PHYSICAL EXAM: VITAL SIGNS: Reviewed. GENERAL: Well-developed in no acute distress. HEENT: No sclera icterus. Extraocular movements grossly intact. Moist buccal mucosa. Head is atraumatic, normocephalic. Oral thrush present ABDOMEN: Soft. Nondistended. incision sites clean dry and intact. DARCIE drain with serosanguineous output. Slightly cloudy. NEUROLOGIC: Alert and oriented. Cranial nerves II through XII grossly intact. ASSESSMENT: 1. Ruptured gangrenous appendicitis status post laparoscopic appendectomy 2. Hypokalemia resolved 3. Low-grade temp possibly related to atelectasis or oral thrush 4. Oral thrush PLAN: -Continue chopped diet -Advised and swish and swallow for oral thrush -Resume Flagyl -Antibiotics per infectious disease service -Encourage patient to ambulate -Encourage patient to use incentive spirometer -Continue pain management -Continue antibiotics -Continue to monitor DARCIE drain site -DVT prophylaxis subcu heparin and GI prophylaxis Protonix Physician Manufacturing Process Technician note has been reviewed by physician. Signing provider agrees with the documented findings, assessment, and plan of care. Objective - Vital Signs Vital signs: Vital Signs Temp 98.6 F 07/28/22 07:34 Pulse 78 07/28/22 07:34 Resp 16 07/28/22 07:34 BP 150/90 07/28/22 07:34 Pulse Ox 93 L 07/28/22 07:34 FiO2 Intake & Output 07/27/22 07/28/22 07/28/22 18:59 06:59 18:59 Intake Total 600 Output Total 20 40 Balance 580 -40 Intake: Intake, IV Titration 600 Amount D5-0.45% NaCl with KCl 500 20Meq/l 1,000 ml @ 125 mls/hr IV .Q8H [facility] Rx#: [id number] Piperacillin-Tazobactam 3 100 .375 gm In Sodium Chloride 0.9% 100 ml @ 25 mls/hr IVPB Q8HR [facility] Rx# :[id number] Output: Drainage 20 40 Lower Anterior Abdomen 20 40 Other: # Voids 4 - Labs CBC & Chem 7: 07/28/22 05:56 07/27/22 04:33 Labs: Abnormal Lab Results - Last 24 Hours (Table) 07/28/22 Range/Units 05:56 WBC 10.55 H (4.50-10.00) X 10*3/uL Hgb 12.5 L (13.0-17.0) g/dL Hct 38.9 L (39.6-50.0) % Immature Gran # 0.13 H (0.00-0.04) X 10*3/uL Neutrophils # 8.38 H (1.80-7.70) X 10*3/uL
--- NOTE | 2022-07-28 15:09 | CDI ---
Documentation Clarification Form Date: 07/28/2022 2:28:36 PM From: Yokasta Ortiz RN CCDS Admit Date: 07/25/2022 4:42:00 AM Patient Name: Berny Maloney Visit Number: [id number] Discharge Date: ATTENTION: The Clinical Documentation Specialists (CDI) and [facility] Coding Staff appreciate your assistance in clarifying documentation. Please respond to the clarification below the line at the bottom and electronically sign. The CDI & [facility] Coding staff will review the response and follow-up if needed. Please note: Queries are made part of the Legal Health Record. If you have any questions, please contact the author of this message via ITS. Dr. Abel Leone Sepsis is documented 07/26, ID consult and 07/26, Medicine note. Based on this information and the findings below, is there an additional diagnosis that is clinically appropriate for this patient? Patient history/risk factors: 47-year-old male presented to the ED with anorexia, nausea and abdominal pain moving from the mid abdomen to the right lower quadrant. Medical History: GERD, HLD and Cholecystectomy. 07/25, H&P. Clinical Indicators: VSS: 07/25 B/P 117/68; HR 107; Temp 102.5 F Oral; RR 16; SpO2 92% room air LABS:07/25 Wbc 20.8; Neutrophils 18 CT Abd/pelvis: 07/25 Extensive inflammatory changes in the right lower quadrant with extraluminal air in the lateral paracolic gutter and consistent with appendicitis with rupture. ID consult, 07/26: Patient with the hospital with sepsis in this patient who did have fever tachycardia and elevated white count secondary to acute gangrenous appendicitis. Medicine note 07/26: Sepsis with fever and leukocytosis Treatment: 07/25 0.9NS 1L bolus x 1; Ceftriaxone IVP x 1; Metronidazole IVPB x 1; 07/25 Acetaminophen IVPB x 1; 07/25 Cefazolin IVPB x 1; 07/25 07/26 Metronidazole IVPB Q8HR; 07/25 Zosyn IVPB Q8HR; 07/28 Metronidazole IVPB Q8HR. Is there an additional diagnosis that is clinically appropriate for this patient? [ X ] Sepsis POA confirmed remains under treatment [ ] Sepsis POA confirmed, resolved [ ] Sepsis, ruled out. [ ] Other, please specify [ ] Unable to determine (Template Last Revised: September 2020) MTDD
--- NOTE | 2022-07-28 19:19 | P.PN ---
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 On today's evaluation that is 07/28/2022, patient did have a refill of 99.9 degrees Fahrenheit after midnight, the patient abdominal pain has slightly decreased in intensity patient is tolerating his diet, no nausea no vomiting no chest pain shortness of breath or cough Objective - Vital Signs Vital signs: Vital Signs Temp 98.6 F 07/28/22 07:34 Pulse 78 07/28/22 07:34 Resp 16 07/28/22 07:34 BP 150/90 07/28/22 07:34 Pulse Ox 93 L 07/28/22 07:34 FiO2 Intake & Output 07/27/22 07/28/22 07/28/22 18:59 06:59 18:59 Intake Total 600 Output Total 20 40 Balance 580 -40 Intake: Intake, IV Titration 600 Amount D5-0.45% NaCl with KCl 500 20Meq/l 1,000 ml @ 125 mls/hr IV .Q8H COR[facility]IUS Rx#: [id number] Piperacillin-Tazobactam 3 100 .375 gm In Sodium Chloride 0.9% 100 ml @ 25 mls/hr IVPB Q8HR [facility] Rx# :[id number] Output: Drainage 20 40 Lower Anterior Abdomen 20 40 Other: # Voids 4 - Exam GENERAL DESCRIPTION: A middle-age male lying in bed in no distress RESPIRATORY SYSTEM: Unlabored breathing , decreased breath sounds at bases HEART: S1 S2 regular rate and rhythm , ABDOMEN: Soft , no tenderness EXTREMITIES: No edema feet - Labs CBC & Chem 7: 07/28/22 05:56 07/27/22 04:33 Labs: Abnormal Lab Results - Last 24 Hours (Table) 07/28/22 Range/Units 05:56 WBC 10.55 H (4.50-10.00) X 10*3/uL Hgb 12.5 L (13.0-17.0) g/dL Hct 38.9 L (39.6-50.0) % Immature Gran # 0.13 H (0.00-0.04) X 10*3/uL Neutrophils # 8.38 H (1.80-7.70) X 10*3/uL Assessment and Plan (1) Acute gangrenous appendicitis with perforation and peritonitis Current Visit: Yes Status: Acute Code(s): K35.32 - AC APPENDICITIS W PERF, LOC PERITONITIS, & GANGR, W/O ABSCS SNOMED Code(s): 67058149 Plan: 1patient with the hospital with sepsis in this patient who did have fever tachycardia and elevated white count secondary to acute gangrenous appendicitis in this patient who is status post laparoscopic appendectomy will need to cover for enteric gram-negative both anaerobes and anaerobes 2patient has shown some clinical improvement and an white count is down to 10,000, patient will continue with the Zosyn while watching his clinical course closely Time with Patient: Less than 30
[2022-07-29] MEDS: HYDROmorphone 1 MG/ML 1 ML SYRINGE IVP PRN ×3 (01:45→17:20)
[2022-07-29] MEDS: metroNIDAZOLE-NS PMX 500 MG in SALINE 1 100ML.BAG IVPB SCH ×3 (04:29→20:20)
[2022-07-29] MEDS: HYDROcodone/APAP 5-325MG 1 EACH TAB PO PRN ×3 (06:48→20:20)
[2022-07-29] MEDS: PANTOPRAZOLE 40 MG/10 ML VIAL IV SCH (08:39)
[2022-07-29] MEDS: NICOTINE 14MG/24HR PATCH TRANSDERM SCH (08:39)
[2022-07-29] MEDS: NYSTATIN 100,000 UNIT/ML SUSP 500,000 UNIT/5 ML CUP PO SCH ×4 (08:40→20:20)
[2022-07-29] MEDS: HEPARIN SODIUM,PORCINE/PF 5,000 UNIT/0.5 ML SYRINGE SQ SCH ×3 (08:40→23:53)
[2022-07-29] MEDS: buPROPion XL 300 MG TAB.ER.24H PO SCH (08:40)
[2022-07-29] MEDS: PIPERACILLIN-TAZOBACTAM 3.375 GM in SODIUM CHLORIDE 0.9% 100 ML IVPB SCH ×3 (08:40→23:52)
[2022-07-29 09:27] LABS: Basophils # (A) 0.1 k/uL (0-0.2); Basophils % (A) 1 %; Eosinophils # (A) 0.2 k/uL (0-0.7); Eosinophils % (A) 1 %; HCT 39.9 % (39.0-53.0); HGB 13.1 gm/dL (13.0-17.5); Lymphocytes % (A) 8 %; MCH 28.5 pg (25.0-35.0); MCHC 32.9 g/dL (31.0-37.0); MCV 86.8 fL (80.0-100.0); Mean Platelet Volume 8.2; Monocytes % (A) 8 %; Neutrophils # (A) 9.7 k/uL (1.3-7.7); Neutrophils % (A) 79 %; Platelet Count 215 k/uL (150-450); RDW 13.4 % (11.5-15.5); WBC 12.2 k/uL (3.8-10.6)
[2022-07-29 11:06] LABS: African American GFR (CKD) 122.4 (60.0-200.0); Anion Gap 11.4 mmol/L (10.00-18.00); BUN/Creat Ratio 9.75 Ratio (12.00-20.00); Blood Urea Nitrogen 7.8 mg/dL (9.0-27.0); Calcium 8.5 mg/dL (8.7-10.3); Carbon Dioxide 25.6 mmol/L (20.0-27.5); Non-African American GFR(CKD) 105.6 (60.0-200.0); Potassium 3.7 mmol/L (3.5-5.5)
--- NOTE | 2022-07-29 11:24 | P.PN ---
Subjective 47-year-old male with a past medical history of hyperlipidemia, GERD, presents emergency department for right lower quadrant abdominal pain. The patient stated this abdominal pain was present since Tuesday and has been persistent ever since. The patient stated that the pain became acutely worse overnight 3 came to the emergency department. The patient did have one episode of vomiting and has had diarrhea. The patient is also had a decreased appetite over the last several days. The patient denied any other acute critical points at this time. The patient denied any current fevers or chills. The patient denies any acute changes in vision or hearing, no dysphagia or odynophagia, no chest pain or shortness of breath, no dysuria or hematuria, no headache, no runny nose, no rectal bleeding or melena, no unexplained weight loss Chest x-ray is negative for any acute cardiopulmonary disease CAT scan was performed showing acute appendicitis with rupture and pericolonic gas collection. There appears to be an appendicolith present. Laboratory completed reveals WBC of 20.8, hemoglobin of 15.6 and platelet count of 158, sodium 135, potassium 3.3, BUN/creatinine of 16/1.05, blood glucose of 133, total bilirubin of 1.4, ALT slightly elevated at 50 07/26/2022 Patient status post laparoscopic appendectomy for ruptured appendix which was gangrenous also postsurgery note, he had the procedure yesterday. Today postop day #1. His pain is [id number], 60/10 in severity, he is on liquid diet with no vomiting, no bowel movement, passing gas. , He is on Zosyn and Flagyl with leukocytosis of 20,000 Consult infectious disease [address] [facility] patch Continue with gentle hydration 07/27/2022 Patient is on full liquid diet, tolerates that well Mild abdominal pain, 60/10 wound closed Normal bowel movement yesterday. He remains on Zosyn. Flagyl, stopped 07/28/2022 Patient tolerates liquid diet better and diet as per surgery team with no vomiting History of some residual abdominal pain. Patient also states he has a bowel movement He had low-grade fever of 99.9. He was on Zosyn. Flagyl added by surgical team today. Nystatin added for her thrush 07/29/2022 Patient improving slowly and gradually, his abdominal pain today is 5/10 in severity, he is having bowel movement and tolerating diet with no nausea vomiting, he still feels somewhat weak. Distal have fever of 99.7 this morning. He is currently covered with antibiotics Zosyn and Flagyl, Nystatin for oral thrush Plan of care discussed with patient and family at bedside and they verbalized understanding and acceptance Objective - Vital Signs Vital signs: Vital Signs Temp 99.7 F H 07/29/22 08:38 Pulse 75 07/29/22 07:59 Resp 16 07/29/22 07:59 BP 124/79 07/29/22 07:59 Pulse Ox 97 07/29/22 07:59 FiO2 Intake & Output 07/28/22 07/29/22 07/29/22 18:59 06:59 18:59 Intake Total 300 Output Total 10 Balance 290 Intake: Intake, IV Titration 300 Amount Piperacillin-Tazobactam 3 200 .375 gm In Sodium Chloride 0.9% 100 ml @ 25 mls/hr IVPB Q8HR [facility] Rx# :[id number] metroNIDAZOLE-NS PMX 500 100 mg In Saline 1 100ml.bag @ 100 mls/hr IVPB Q8H [facility] Rx#:[id number] Output: Drainage 10 Lower Anterior Abdomen 10 Other: # Voids 5 - Exam GENERAL: The patient is alert and oriented x3, not in any acute distress. Well developed, well nourished. HEENT: Pupils are round and equally reacting to light. EOMI. No scleral icterus. No conjunctival pallor. Normocephalic, atraumatic. No pharyngeal erythema. No t hyromegaly. CARDIOVASCULAR: S1 and S2 present. No murmurs, rubs, or gallops. PULMONARY: Chest is clear to auscultation, no wheezing or crackles. -ABDOMEN: Soft, nontender, nondistended, normoactive bowel sounds. No palpable organomegaly. Laparoscopic once her clothes and healing MUSCULOSKELETAL: No joint swelling or deformity. EXTREMITIES: No cyanosis, clubbing, or pedal edema. NEUROLOGICAL: Gross neurological examination did not reveal any focal deficits. SKIN: No rashes. no petechiae. - Labs CBC & Chem 7: 07/29/22 07:47 07/29/22 07:47 Labs: Abnormal Lab Results - Last 24 Hours (Table) 07/29/22 07/29/22 Range/Units 07:47 07:47 WBC 12.2 H (3.8-10.6) k/uL Neutrophils # 9.7 H (1.3-7.7) k/uL BUN 7.8 L (9.0-27.0) mg/dL BUN/Creatinine Ratio 9.75 L (12.00-20.00) Ratio Calcium 8.5 L (8.7-10.3) mg/dL Assessment and Plan Assessment: 1. Abdominal pain/ruptured appendicitis; patient is status post laparoscopic appendectomy; - CT of abdomen reveals extensive inflammatory changes occur quadrant with extraluminal air in the lateral paracolic gutter consistent with appendicitis with rupture - Patient was evaluated by general surgery, he is status post laparoscopic appendectomy - Consult infectious disease team, currently he is on Flagyl and Zosyn 2. Sepsis with fever and leukocytosis, improving 3. Hyperlipidemia; patient takes Lipitor 40 mg daily; we will resume once oral intake is established 4. Gastroesophageal reflux disease; omeprazole 40 mg daily 5. Depression; Wellbutrin 300 mg daily DVT prophylaxis; SCDs, decision about anticoagulation will be discussed with surgery team, we will defer to surgery team GI prophylaxis: Protonix CODE STATUS; full code
[2022-07-29] MEDS ORDERED: IOPAMIDOL CONTRAST (ORAL USE) VIAL PO PRN (12:24)
[2022-07-29] MEDS: IOPAMIDOL CONTRAST (ORAL USE) VIAL PO PRN ×2 (12:48→14:06)
--- NOTE | 2022-07-29 14:42 | P.PN ---
Subjective Progress Note Date: 07/29/22 CHIEF COMPLAINT: Ruptured appendicitis HISTORY OF PRESENT ILLNESS: Patient's postop day #4 status post laparoscopic appendectomy. Patient continues to complain of right lower quadrant abdominal pain. This morning he reported that the pain was better. But apparently pain has continued to increase. Dr. Leone has ordered a computed tomography scan abdomen and pelvis. He denies any nausea or vomiting. He is having flatus and bowel movements. DARCIE drain with a 40 mL serosanguineous output. Patient having low-grade temps. WBC did go up from 10-12 Hgb is 13.1 platelets 215 PHYSICAL EXAM: VITAL SIGNS: Reviewed. GENERAL: Well-developed in no acute distress. HEENT: No sclera icterus. Extraocular movements grossly intact. Moist buccal mucosa. Head is atraumatic, normocephalic. Oral thrush present ABDOMEN: Soft. Nondistended. incision sites clean dry and intact. DARCIE drain with serosanguineous output. Slightly cloudy. NEUROLOGIC: Alert and oriented. Cranial nerves II through XII grossly intact. ASSESSMENT: 1. Ruptured gangrenous appendicitis status post laparoscopic appendectomy 2. Hypokalemia resolved 3. Low-grade temp possibly related to atelectasis or oral thrush 4. Oral thrush PLAN: -Computed tomography scan abdomen and pelvis ordered for further evaluation of abdominal pain -Continue chopped diet -Continue nystatin swish and swallow for oral thrush -Antibiotics per infectious disease service -Encourage patient to ambulate -Encourage patient to use incentive spirometer -Continue pain management -DVT prophylaxis subcu heparin and GI prophylaxis Protonix Physician Grease Buffer note has been reviewed by physician. Signing provider agrees with the documented findings, assessment, and plan of care. I have personally seen and examined the patient, reviewed the FOAMING MACHINE OPERATOR /PAs history, exam and MDM and agree with the assessment and plan as written. Based on total visit time, I have performed more than 50% of the visit. As above: Clinically patient is doing better today. He is sitting up in the chair with his legs crossed. He is moving about the room and appears to be fairly comfortable. Apparently last night he did have increased pain and again felt diaphoretic with fevers of 99.7. We did repeat a CAT scan today after the white blood cell count increased slightly. He still has significant inflammatory changes adjacent to the cecum. There is no visible abscess or evidence of colonic leak. Drain is appropriately placed. Some wall thickening of the cecum and small bowel is identified and not surprising. Case discussed in detail with the patient and also his by phone. Continue IV antibiotics. We'll discuss with infectious disease whether PICC line should be placed for home IV antibiotics which I think would be a reasonable option. Will hold off on CBC tomorrow in order for Tuesday morning. Continue diet. Objective - Vital Signs Vital signs: Vital Signs Temp 99.7 F H 07/29/22 08:38 Pulse 75 07/29/22 07:59 Resp 16 07/29/22 07:59 BP 124/79 07/29/22 07:59 Pulse Ox 97 07/29/22 07:59 FiO2 Intake & Output 07/28/22 07/29/22 07/29/22 18:59 06:59 18:59 Intake Total 300 Output Total 10 Balance 290 Intake: Intake, IV Titration 300 Amount Piperacillin-Tazobactam 3 200 .375 gm In Sodium Chloride 0.9% 100 ml @ 25 mls/hr IVPB Q8HR [facility] Rx# :[id number] metroNIDAZOLE-NS PMX 500 100 mg In Saline 1 100ml.bag @ 100 mls/hr IVPB Q8H [facility] Rx#:[id number] Output: Drainage 10 Lower Anterior Abdomen 10 Other: # Voids 5 - Labs CBC & Chem 7: 07/29/22 07:47 07/29/22 07:47 Labs: Abnormal Lab Results - Last 24 Hours (Table) 07/29/22 07/29/22 Range/Units 07:47 07:47 WBC 12.2 H (3.8-10.6) k/uL Neutrophils # 9.7 H (1.3-7.7) k/uL BUN 7.8 L (9.0-27.0) mg/dL BUN/Creatinine Ratio 9.75 L (12.00-20.00) Ratio Calcium 8.5 L (8.7-10.3) mg/dL
--- NOTE | 2022-07-29 15:24 | CT ---
EXAMINATION TYPE: CT abdomen pelvis w con DATE OF EXAM: 07/29/2022 COMPARISON: CT abdomen and pelvis 4 days ago and older study December 17, 2021 HISTORY: Right lower quadrant pain CT DLP: 1029.4 mGycm, Automated Exposure Control for Dose Reduction was Utilized. CONTRAST: CT scan of the abdomen and pelvis is performed with oral and with IV Contrast, patient injected with 100 mL of Isovue 300. FINDINGS: LUNG BASES: New tiny right greater than left pleural effusions and associated compressive atelectasis . New dependent atelectasis LIVER/GB: Gallbladder surgically absent. PANCREAS: No significant abnormality is seen. SPLEEN: Persistent rim calcified 4.2 cm low dense lesion in the spleen axial image 21. ADRENALS: No significant abnormality is seen. KIDNEYS: Symmetric cortical medullary uptake and excretion without hydronephrosis seen bilaterally. B ladder poorly distended with mild concentric wall thickening up to 8 mm. BOWEL: Oral contrast reaches level of terminal ileum. There is no suspicious dilatation of the stomac h or small bowel loops. Slightly suboptimal evaluation of distal bowel. Slightly redundant sigmoid co feli. Air-fluid level in the transverse colon. Fluid-filled right colon with air-fluid level extends i nto the cecum. There is new percutaneous drainage catheter entering the midline of the upper pelvis w ith tip terminating in the right paracolic gutter superior and lateral to the base of the cecum. Smal l amount of adjacent free air noted axial image 61. There is moderate to severe ill-defined fluid and fat stranding surrounding the cecum. Hyperdense foci posterior aspect of sacrum suspicious for sutur es noted axial images 68 and 69. Tiny hypodense foci anterior to this could reflect tiny residual gerson endicoliths or ingested food product within the base of cecum. Small amount of free air axial image 6 3 is noted. Some fat stranding and subcutaneous air in the left-sided abdominal wall is present. No w ell-formed fluid collection or drainable abscess identified. PROSTATE/SEMINAL VESICLES: No gross abnormality seen. LYMPH NODES: No greater than 1cm abdominal or pelvic lymph nodes are appreciated. OSSEOUS STRUCTURES: No significant abnormality is seen. OTHER: No significant additional abnormality is seen. IMPRESSION: Interval surgery with appendectomy. Current findings are nonspecific with moderate to sev ere ill-defined fluid and fat stranding in the right lower quadrant and pelvis redemonstrated. Findin gs could reflect combination of postsurgical change and residual inflammation.
--- NOTE | 2022-07-29 18:50 | P.PN ---
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 On today's evaluation that is 07/29/2022, patient did have a low-grade fever of 99.9 degrees Fahrenheit again last night, the patient has been complaining of more abdominal pain today some nausea but no vomiting and is having a bowel movement no chest pain shortness of breath or cough Objective - Vital Signs Vital signs: Vital Signs Temp 99.7 F H 07/29/22 08:38 Pulse 75 07/29/22 07:59 Resp 16 07/29/22 07:59 BP 124/79 07/29/22 07:59 Pulse Ox 97 07/29/22 07:59 FiO2 Intake & Output 07/28/22 07/29/22 07/29/22 18:59 06:59 18:59 Intake Total 300 Output Total 10 Balance 290 Intake: Intake, IV Titration 300 Amount Piperacillin-Tazobactam 3 200 .375 gm In Sodium Chloride 0.9% 100 ml @ 25 mls/hr IVPB Q8HR [facility] Rx# :[id number] metroNIDAZOLE-NS PMX 500 100 mg In Saline 1 100ml.bag @ 100 mls/hr IVPB Q8H [facility] Rx#:[id number] Output: Drainage 10 Lower Anterior Abdomen 10 Other: # Voids 5 - Exam GENERAL DESCRIPTION: A middle-age male lying in bed in no distress RESPIRATORY SYSTEM: Unlabored breathing , decreased breath sounds at bases HEART: S1 S2 regular rate and rhythm , ABDOMEN: Soft , mild distention and tenderness EXTREMITIES: No edema feet - Labs CBC & Chem 7: 07/29/22 07:47 07/29/22 07:47 Labs: Abnormal Lab Results - Last 24 Hours (Table) 07/29/22 Range/Units 07:47 WBC 12.2 H (3.8-10.6) k/uL Neutrophils # 9.7 H (1.3-7.7) k/uL Assessment and Plan (1) Acute gangrenous appendicitis with perforation and peritonitis Current Visit: Yes Status: Acute Code(s): K35.32 - AC APPENDICITIS W PERF, LOC PERITONITIS, & GANGR, W/O ABSCS SNOMED Code(s): 26756138 Plan: 1patient with the hospital with sepsis in this patient who did have fever tachycardia and elevated white count secondary to acute gangrenous appendicitis in this patient who is status post laparoscopic appendectomy will need to cover for enteric gram-negative both anaerobes and anaerobes 2patient did have low-grade fever and white count jumped to 12.5 today and the patient also having slight abdominal pain and distention he will benefit from a CT abdominal pelvis will discuss with surgical team continue with the [place] at this point, the at the bedside questions were answered Time with Patient: Less than 30
[2022-07-30] MEDS: HYDROmorphone 0.5 MG/0.5 ML SYRINGE IVP PRN ×4 (04:28→21:40)
[2022-07-30] MEDS: metroNIDAZOLE-NS PMX 500 MG in SALINE 1 100ML.BAG IVPB SCH ×3 (04:29→19:56)
[2022-07-30] MEDS: PIPERACILLIN-TAZOBACTAM 3.375 GM in SODIUM CHLORIDE 0.9% 100 ML IVPB SCH ×2 (09:18→16:29)
[2022-07-30] MEDS: NICOTINE 14MG/24HR PATCH TRANSDERM SCH (09:18)
[2022-07-30] MEDS: HYDROcodone/APAP 5-325MG 1 EACH TAB PO PRN ×3 (09:18→18:25)
[2022-07-30] MEDS: buPROPion XL 300 MG TAB.ER.24H PO SCH (09:18)
[2022-07-30] MEDS: HEPARIN SODIUM,PORCINE/PF 5,000 UNIT/0.5 ML SYRINGE SQ SCH ×2 (09:19→16:29)
[2022-07-30] MEDS: NYSTATIN 100,000 UNIT/ML SUSP 500,000 UNIT/5 ML CUP PO SCH ×4 (09:22→22:27)
[2022-07-30] MEDS: PANTOPRAZOLE 40 MG/10 ML VIAL IV SCH (09:23)
--- NOTE | 2022-07-30 11:34 | IR ---
PICC LINE PLACEMENT: HISTORY: Infection requiring long-term antibiotic therapy PROCEDURE: Ultrasound and fluoroscopic guidance of PICC line placement. COMPLICATIONS: None ANESTHESIA: 1. 1% Lidocaine locally. FINDINGS/TECHNIQUE: The procedure was explained to the patient. The risks, complications, benefits and alternatives were discussed and any questions were answered. Informed consent was obtained. The patient was placed supine on the fluoroscopic table and prepped and draped in the usual sterile fash ion. Utilizing a 21 gauge needle and sonographic and fluoroscopic guidance, access in the left basi lic vein was achieved and there is placement of a 0.018 guidewire. The vein is patent. A 4-F sheath was placed over the guidewire. The guidewire and dilator were removed and a 4-F. PICC line was plac ed through the sheath with the tip at the level of the SVC. The sheath was removed, the catheter was flushed and sutured into position. The patient was stable throughout the procedure and remained sta ble upon discharge from the Department of Radiology. The vein puncture was patent under ultrasound. A mcrae scale image was obtained to document patency of the vein punctured. All elements of the maximal barrier technique were utilized. FLUOROSCOPY TIME: 0.1 minute and one images submitted IMPRESSION: Successful PICC line placement under ultrasound and fluoroscopic guidance.
--- NOTE | 2022-07-30 12:42 | P.PN ---
Subjective 47-year-old male with a past medical history of hyperlipidemia, GERD, presents emergency department for right lower quadrant abdominal pain. The patient stated this abdominal pain was present since Tuesday and has been persistent ever since. The patient stated that the pain became acutely worse overnight 3 came to the emergency department. The patient did have one episode of vomiting and has had diarrhea. The patient is also had a decreased appetite over the last several days. The patient denied any other acute critical points at this time. The patient denied any current fevers or chills. The patient denies any acute changes in vision or hearing, no dysphagia or odynophagia, no chest pain or shortness of breath, no dysuria or hematuria, no headache, no runny nose, no rectal bleeding or melena, no unexplained weight loss Chest x-ray is negative for any acute cardiopulmonary disease CAT scan was performed showing acute appendicitis with rupture and pericolonic gas collection. There appears to be an appendicolith present. Laboratory completed reveals WBC of 20.8, hemoglobin of 15.6 and platelet count of 158, sodium 135, potassium 3.3, BUN/creatinine of 16/1.05, blood glucose of 133, total bilirubin of 1.4, ALT slightly elevated at 50 07/26/2022 Patient status post laparoscopic appendectomy for ruptured appendix which was gangrenous also postsurgery note, he had the procedure yesterday. Today postop day #1. His pain is [id number], 60/10 in severity, he is on liquid diet with no vomiting, no bowel movement, passing gas. , He is on Zosyn and Flagyl with leukocytosis of 20,000 Consult infectious disease At [facility] patch Continue with gentle hydration 07/27/2022 Patient is on full liquid diet, tolerates that well Mild abdominal pain, 60/10 wound closed Normal bowel movement yesterday. He remains on Zosyn. Flagyl, stopped 07/28/2022 Patient tolerates liquid diet better and diet as per surgery team with no vomiting History of some residual abdominal pain. Patient also states he has a bowel movement He had low-grade fever of 99.9. He was on Zosyn. Flagyl added by surgical team today. Nystatin added for her thrush 07/29/2022 Patient improving slowly and gradually, his abdominal pain today is 5/10 in severity, he is having bowel movement and tolerating diet with no nausea vomiting, he still feels somewhat weak. Distal have fever of 99.7 this morning. He is currently covered with antibiotics Zosyn and Flagyl, Nystatin for oral thrush Plan of care discussed with patient and family at bedside and they verbalized understanding and acceptance 07/30/2022 Patient is eating well and he tolerates diet and has bowel movement is still have some abdominal pain but is controlled, patient improving every day slowly and gradually He has some expected tenderness around the surgical site Repeat CAT scan yesterday showed still some inflammatory changes however there is no abscess per surgery team. Currently covered with Zosyn and Flagyl Patient may benefit from IV antibiotic upon discharge, deferred to infectious disease team recommendation Objective - Vital Signs Vital signs: Vital Signs Temp 98.3 F 07/30/22 06:48 Pulse 74 07/30/22 06:48 Resp 18 07/30/22 06:48 BP 122/76 07/30/22 06:48 Pulse Ox 99 07/30/22 06:48 FiO2 Intake & Output 07/29/22 07/30/22 07/30/22 18:59 06:59 18:59 Output Total 20 Balance -20 Output: Drainage 20 Lower Anterior Abdomen 20 Other: # Voids 1 4 - Exam GENERAL: The patient is alert and oriented x3, not in any acute distress. Well developed, well nourished. HEENT: Pupils are round and equally reacting to light. EOMI. No scleral icterus. No conjunctival pallor. Normocephalic, atraumatic. No pharyngeal erythema. No thyromegaly. CARDIOVASCULAR: S1 and S2 present. No murmurs, rubs, or gallops. PULMONARY: Chest is clear to auscultation, no wheezing or crackles. -ABDOMEN: Soft, nontender, nondistended, normoactive bowel sounds. No palpable organomegaly. Laparoscopic once her clothes and healing MUSCULOSKELETAL: No joint swelling or deformity. EXTREMITIES: No cyanosis, clubbing, or pedal edema. NEUROLOGICAL: Gross neurological examination did not reveal any focal deficits. SKIN: No rashes. no petechiae. - Labs CBC & Chem 7: 07/29/22 07:47 07/29/22 07:47 Assessment and Plan Assessment: 1. Abdominal pain/ruptured appendicitis; patient is status post laparoscopic a ppendectomy; - CT of abdomen reveals persistent some inflammatory changes, referred to the report for more details - Patient was evaluated by general surgery, he is status post laparoscopic appendectomy - Consult infectious disease team, currently he is on Flagyl and Zosyn 2. Sepsis with fever and leukocytosis, improving - Patient will benefit from IV antibiotics upon discharge PICC line placed 3. Hyperlipidemia; patient takes Lipitor 40 mg daily; we will resume once oral intake is established 4. Gastroesophageal reflux disease; omeprazole 40 mg daily 5. Depression; Wellbutrin 300 mg daily DVT prophylaxis; SCDs, decision about anticoagulation will be discussed with surgery team, we will defer to surgery team GI prophylaxis: Protonix CODE STATUS; full code
[2022-07-30 13:20] VITALS: BMI 26.6
--- NOTE | 2022-07-30 15:38 | P.PN ---
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 On today's evaluation that is 07/30/2022, patient is afebrile today patient is feeling better the patient abdominal pain has decreased in intensity patient denies having any nausea and vomiting he did have a bowel movement no chest pain shortness of breath or cough Objective - Vital Signs Vital signs: Vital Signs Temp 98.3 F 07/30/22 06:48 Pulse 74 07/30/22 06:48 Resp 18 07/30/22 06:48 BP 122/76 07/30/22 06:48 Pulse Ox 99 07/30/22 06:48 FiO2 Intake & Output 07/29/22 07/30/22 07/30/22 18:59 06:59 18:59 Output Total 20 Balance -20 Output: Drainage 20 Lower Anterior Abdomen 20 Other: # Voids 1 4 - Exam GENERAL DESCRIPTION: A middle-age male lying in bed in no distress RESPIRATORY SYSTEM: Unlabored breathing , decreased breath sounds at bases HEART: S1 S2 regular rate and rhythm , ABDOMEN: Soft , mild distention and tenderness EXTREMITIES: No edema feet - Labs CBC & Chem 7: 07/29/22 07:47 07/29/22 07:47 Labs: Abnormal Lab Results - Last 24 Hours (Table) 07/29/22 Range/Units 07:47 BUN 7.8 L (9.0-27.0) mg/dL BUN/Creatinine Ratio 9.75 L (12.00-20.00) Ratio Calcium 8.5 L (8.7-10.3) mg/dL Assessment and Plan (1) Acute gangrenous appendicitis with perforation and peritonitis Current Visit: Yes Status: Acute Code(s): K35.32 - AC APPENDICITIS W PERF, LOC PERITONITIS, & GANGR, W/O ABSCS SNOMED Code(s): 30076894 Plan: 1patient with the hospital with sepsis in this patient who did have fever tachycardia and elevated white count secondary to acute gangrenous appendicitis in this patient who is status post laparoscopic appendectomy will need to cover for enteric gram-negative both anaerobes and anaerobes 2patient did have low-grade fever and white count jumped to 12.5 yesterday for which the patient did have CT of abdominal pelvis did shows a lot of inflammatory changes but no drainable abscess keeping in mind the patient CT report patient will benefit from outpatient IV antibiotics on discharge instead of switching him to oral patient has got a PICC line prescription for Zosyn was provided to the manager rn case, also plan on getting a CT of abdominal pelvis before he completed his antibiotics in 2 weeks Time with Patient: Less than 30
--- NOTE | 2022-07-30 15:46 | P.PN ---
Subjective Progress Note Date: 07/30/22 CHIEF COMPLAINT: Ruptured appendicitis HISTORY OF PRESENT ILLNESS: Patient's postop day #5 status post laparoscopic appendectomy. Patient's reports feeling better today. His pain in the right lower quadrant is decreasing. He is not requiring the IV pain medication as often. He is having bowel movements and flatus. Denies any nose nausea or vomiting. Computed tomography scan abdomen and pelvis moderate to severe ill- defined fluid and fat stranding in the right lower quadrant and pelvis redemonst rated. Findings could reflect combination of postsurgical changes and residual inflammation. Afebrile. Patient had PICC line placed today PHYSICAL EXAM: VITAL SIGNS: Reviewed. GENERAL: Well-developed in no acute distress. HEENT: No sclera icterus. Extraocular movements grossly intact. Moist buccal mucosa. Head is atraumatic, normocephalic. Oral thrush present ABDOMEN: Soft. Nondistended. incision sites clean dry and intact. DARCIE drain with serosanguineous output. Slightly cloudy. NEUROLOGIC: Alert and oriented. Cranial nerves II through XII grossly intact. ASSESSMENT: 1. Ruptured gangrenous appendicitis status post laparoscopic appendectomy 2. Hypokalemia resolved 3. Low-grade temp possibly related to atelectasis or oral thrush 4. Oral thrush PLAN: -Anticipate discharge tomorrow -Discharge with IV antibiotics per ID recommendations -Repeat CBC in a.m. -Continue chopped diet, low fiber -Continue nystatin swish and swallow for oral thrush -Encourage patient to ambulate -Encourage patient to use incentive spirometer -Continue pain management -DVT prophylaxis subcu heparin and GI prophylaxis Protonix Physician Complaint Evaluation Officer note has been reviewed by physician. Signing provider agrees with the documented findings, assessment, and plan of care. I have personally seen and examined the patient, reviewed the POOLROOM TABLE ATTENDANT /PAs history, exam and MDM and agree with the assessment and plan as written. Based on total visit time, I have performed more than 50% of the visit. As above: Patient doing better today. Still having some right-sided pain. Drain today is somewhat more cloudy in appearance. Continue antibiotics. Repeat CBC tomorrow. If CBC improved or stable probable discharge on IV antibiotics. Objective - Vital Signs Vital signs: Vital Signs Temp 98.3 F 07/30/22 14:08 Pulse 75 07/30/22 14:08 Resp 18 07/30/22 14:08 BP 116/76 07/30/22 14:08 Pulse Ox 96 07/30/22 14:08 FiO2 Intake & Output 07/29/22 07/30/22 07/30/22 18:59 06:59 18:59 Output Total 20 Balance -20 Weight 79.379 kg Output: Drainage 20 Lower Anterior Abdomen 20 Other: # Voids 1 4 - Labs CBC & Chem 7: 07/29/22 07:47 07/29/22 07:47
[2022-07-31] MEDS: PIPERACILLIN-TAZOBACTAM 3.375 GM in SODIUM CHLORIDE 0.9% 100 ML IVPB SCH ×2 (00:21→07:55)
[2022-07-31] MEDS: HEPARIN SODIUM,PORCINE/PF 5,000 UNIT/0.5 ML SYRINGE SQ SCH ×2 (00:22→07:55)
[2022-07-31] MEDS: HYDROmorphone 0.5 MG/0.5 ML SYRINGE IVP PRN ×2 (03:10→13:07)
[2022-07-31] MEDS: metroNIDAZOLE-NS PMX 500 MG in SALINE 1 100ML.BAG IVPB SCH ×2 (04:25→12:08)
[2022-07-31 07:54] VITALS: BP 138/92; PULSE 69; RESP 16; TEMP 97.9
[2022-07-31] MEDS: buPROPion XL 300 MG TAB.ER.24H PO SCH (07:54)
[2022-07-31] MEDS: NICOTINE 14MG/24HR PATCH TRANSDERM SCH (07:54)
[2022-07-31] MEDS: NYSTATIN 100,000 UNIT/ML SUSP 500,000 UNIT/5 ML CUP PO SCH ×2 (07:54→12:08)
[2022-07-31] MEDS: HYDROcodone/APAP 5-325MG 1 EACH TAB PO PRN (08:00)
--- NOTE | 2022-07-31 10:48 | P.DS ---
Providers Date of admission: 07/25/22 04:42 Expected date of discharge: 07/31/22 Attending physician: Abel Leone Consults: 07/25/22 13:10 Consult Physician Routine Consulting Provider: Madhav Ascencio Consult Reason/Comments: Medical management Do you want consulting provider notified?: Yes 07/26/22 08:44 Consult Physician Urgent Consulting Provider: Crystal Zavala Consult Reason/Comments: ABX management Do you want consulting provider notified?: Yes Primary care physician: Jessica Ramos Hospital Course: Is a 39-year-old male who underwent laparoscopic appendectomy for ruptured appendicitis. Patient did well postop. Please see the chart for details. Procedures: Laparoscopic appendectomy Patient Condition at Discharge: Stable Plan - Discharge Summary Discharge Rx Participant: No New Discharge Prescriptions: New HYDROcodone/APAP 7.5-325MG [[place] 7.5-325] 1 tab PO Q4H PRN 3 Days #18 tab PRN Reason: pain No Action Gabapentin [Neurontin] 300 mg PO BID PRN PRN Reason: Pain Omeprazole 40 mg PO DAILY buPROPion HCL [Wellbutrin XL] 300 mg PO DAILY Atorvastatin [Lipitor] 40 mg PO DAILY Discharge Medication List Atorvastatin [Lipitor] 40 mg PO DAILY 11/13/21 [History] Gabapentin [Neurontin] 300 mg PO BID PRN 11/13/21 [History] Omeprazole 40 mg PO DAILY 11/13/21 [History] buPROPion HCL [Wellbutrin XL] 300 mg PO DAILY 11/13/21 [History] HYDROcodone/APAP 7.5-325MG [[place] 7.5-325] 1 tab PO Q4H PRN 3 Days #18 tab 07/30/22 [Rx] Follow up Appointment(s)/Referral(s): Abel Leone MD [Medical Doctor] - 1 Week Jessica Ramos DO [Primary Care Provider] - 1-2 days [facility], [NON-STAFF] - As Needed ([facility] will call you to schedule your in home nursing visits to begin IV antibiotic teaching. Your first visit will be on Tuesday morning.) Infusion Services,[facility] [REFERRING] - As Needed ([facility] will deliver outpatient IV antibiotics and supplies to your house on the evening of discharge between 6-9pm. ) Crystal Zavala MD [STAFF PHYSICIAN] - 2 Weeks Ambulatory/Diagnostic Orders: Miscellaneous Radiology Order [RAD.AMB] Location: None Selected Patient Instructions/Handouts: Laparoscopic Appendectomy (DC) Activity/Diet/Wound Care/Special Instructions: Discharging RN: Call [facility] [phone] (Select the option for safety professional) if patient is discharged on Tuesday07/31/22 to set up delivery of the IV antibiotics. They will deliver Tuesday night and [facility] will start teaching Tuesday. CT Abdomen/Pelvis at [facility]: [phone] - 08/12/22 12:00p.m. You must arrive at 10:20a.m. Nothing to eat or drink including candy and gum after 10:00a.m.
[2022-07-31 11:53] LABS: HGB 14.4 g/dL (13.0-17.0); MCH 28.3 pg (27.0-32.0); MCV 88.6 fL (80.0-97.0); Mean Platelet Volume 10.8 fL (9.5-12.2); NRBC Per 100 WBC 0 /100 WBCS (0.0-0.0); Platelet Count 262 X 10*3/uL (140-440); RBC 5.08 X 10*6/uL (4.40-5.60); RDW 13.7 % (11.5-14.5); WBC 8.13 X 10*3/uL (4.50-10.00)
[2022-07-31 11:54] LABS: Basophils # (M) 0.16 X 10*3/uL (0.00-0.10); Eosinophils # (M) 0.33 X 10*3/uL (0.04-0.35); Lymphocytes # (M) 0.81 X 10*3/uL (0.90-5.00); Metamyelocytes % 1 % (0-0); Monocytes # (M) 0.41 X 10*3/uL (0.20-1.00); Myelocytes % 3 % (0-0); Neutrophils % (M) 75 %
--- NOTE | 2022-07-31 13:55 | P.PN ---
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 On today's evaluation that is 07/31/2022, patient remains to be afebrile, patient is feeling better the patient abdominal pain has decreased in intensity patient denies having any nausea and vomiting and has been tolerating his diet, no chest pain shortness of breath or cough Objective - Vital Signs Vital signs: Vital Signs Temp 97.9 F 07/31/22 07:53 Pulse 69 07/31/22 07:53 Resp 16 07/31/22 07:53 BP 138/92 07/31/22 07:53 Pulse Ox 98 07/31/22 07:53 FiO2 Intake & Output 07/30/22 07/31/22 07/31/22 18:59 06:59 18:59 Output Total 20 10 Balance -20 -10 Weight 79.379 kg Output: Drainage 20 10 Lower Anterior Abdomen 20 10 Other: # Voids 2 4 - Exam GENERAL DESCRIPTION: A middle-age male lying in bed in no distress RESPIRATORY SYSTEM: Unlabored breathing , decreased breath sounds at bases HEART: S1 S2 regular rate and rhythm , ABDOMEN: Soft , mild distention and tenderness EXTREMITIES: No edema feet - Labs CBC & Chem 7: 07/31/22 07:47 07/29/22 07:47 Assessment and Plan (1) Acute gangrenous appendicitis with perforation and peritonitis Current Visit: Yes Status: Acute Code(s): K35.32 - AC APPENDICITIS W PERF, LOC PERITONITIS, & GANGR, W/O ABSCS SNOMED Code(s): 49652328 Plan: 1patient with the hospital with sepsis in this patient who did have fever tachycardia and elevated white count secondary to acute gangrenous appendicitis in this patient who is status post laparoscopic appendectomy will need to cover for enteric gram-negative both anaerobes and anaerobes 2patient did have low-grade fever and white count jumped to 12.5 yesterday for which the patient did have CT of abdominal pelvis did shows a lot of inflammatory changes but no drainable abscess keeping in mind the patient CT report patient will benefit from outpatient IV antibiotics on discharge instead of switching him to oral patient has got a PICC line, outpatient Zosyn has been arranged for the patient patient white count has normalized he'll be able to go home after his noon dose of Zosyn and apparently the patient will be able to start his home infusion at 8 PM today per the nursing staff Time with Patient: Less than 30
--- NOTE | 2022-07-31 14:35 | P.PN ---
Subjective Progress Note Date: 07/31/22 47-year-old male with a past medical history of hyperlipidemia, GERD, presents emergency department for right lower quadrant abdominal pain. The patient stated this abdominal pain was present since Tuesday and has been persistent ever since. The patient stated that the pain became acutely worse overnight 3 came to the emergency department. The patient did have one episode of vomiting and has had diarrhea. The patient is also had a decreased appetite over the last several days. The patient denied any other acute critical points at this time. The patient denied any current fevers or chills. The patient denies any acute changes in vision or hearing, no dysphagia or odynophagia, no chest pain or shortness of breath, no dysuria or hematuria, no headache, no runny nose, no rectal bleeding or melena, no unexplained weight loss Chest x-ray is negative for any acute cardiopulmonary disease CAT scan was performed showing acute appendicitis with rupture and pericolonic gas collection. There appears to be an appendicolith present. Laboratory completed reveals WBC of 20.8, hemoglobin of 15.6 and platelet count of 158, sodium 135, potassium 3.3, BUN/creatinine of 16/1.05, blood glucose of 133, total bilirubin of 1.4, ALT slightly elevated at 50 07/26/2022 Patient status post laparoscopic appendectomy for ruptured appendix which was gangrenous also postsurgery note, he had the procedure yesterday. Today postop day #1. His pain is [id number], 60/10 in severity, he is on liquid diet with no vomiting, no bowel movement, passing gas. , He is on Zosyn and Flagyl with leukocytosis of 20,000 Consult infectious disease At [facility] Continue with gentle hydration 07/27/2022 Patient is on full liquid diet, tolerates that well Mild abdominal pain, 60/10 wound closed Normal bowel movement yesterday. He remains on Zosyn. Flagyl, stopped 07/28/2022 Patient tolerates liquid diet better and diet as per surgery team with no vomiting History of some residual abdominal pain. Patient also states he has a bowel movement He had low-grade fever of 99.9. He was on Zosyn. Flagyl added by surgical team today. Nystatin added for her thrush 07/29/2022 Patient improving slowly and gradually, his abdominal pain today is 5/10 in severity, he is having bowel movement and tolerating diet with no nausea vomiting, he still feels somewhat weak. Distal have fever of 99.7 this morning. He is currently covered with antibiotics Zosyn and Flagyl, Nystatin for oral thrush Plan of care discussed with patient and family at bedside and they verbalized understanding and acceptance 07/30/2022 Patient is eating well and he tolerates diet and has bowel movement is still have some abdominal pain but is controlled, patient improving every day slowly and gradually He has some expected tenderness around the surgical site Repeat CAT scan yesterday showed still some inflammatory changes however there is no abscess per surgery team. Currently covered with Zosyn and Flagyl Patient may benefit from IV antibiotic upon discharge, deferred to infectious disease team recommendation 07/31. Patient seen and examined. Patient laying comfortably in the bed. Tolerating diet. Currently medical stable for discharge REVIEW OF SYSTEMS: CONSTITUTIONAL: No fever, no malaise,. CARDIOVASCULAR: No chest pain, no palpitations, no syncope. PULMONARY: No shortness of breath, no cough, GASTROINTESTINAL: No diarrhea, no nausea, no vomiting, no abdominal pain. NEUROLOGICAL: No headaches, no weakness, PHYSICAL EXAMINATION: GENERAL: The patient is alert and oriented x3, not in any acute distress. Well developed, well nourished. HEENT: Pupils are round and equally reacting to light. EOMI. No scleral icterus. No conjunctival pallor. Normocephalic, atraumatic. No pharyngeal erythema. No thyromegaly. CARDIOVASCULAR: S1 and S2 present. No murmurs, rubs, or gallops. PULMONARY: Chest is clear to auscultation, no wheezing or crackles. ABDOMEN: Soft, nontender, nondistended, normoactive bowel sounds. Surgical incision seen, drain in place MUSCULOSKELETAL: No joint swelling or deformity. EXTREMITIES: No cyanosis, clubbing, or pedal edema. NEUROLOGICAL: Gross neurological examination did not reveal any focal deficits. SKIN: No rashes. Assessment and plan 1. Abdominal pain/ruptured appendicitis; patient is status post laparoscopic appendectomy; - CT of abdomen reveals persistent some inflammatory changes, referred to the report for more details - Patient was evaluated by general surgery, he is status post laparoscopic appendectomy Continue antibiotics per ID 2. Sepsis with fever and leukocytosis, improving Continue IV antibiotic satiety 3. Hyperlipidemia; patient takes Lipitor 40 mg daily; we will resume once oral intake is established 4. Gastroesophageal reflux disease; omeprazole 40 mg daily 5. Depression; Wellbutrin 300 mg daily Objective - Vital Signs Vital signs: Vital Signs Temp 97.9 F 07/31/22 07:53 Pulse 69 07/31/22 07:53 Resp 16 07/31/22 07:53 BP 138/92 07/31/22 07:53 Pulse Ox 98 07/31/22 07:53 FiO2 Intake & Output 07/30/22 07/31/22 07/31/22 18:59 06:59 18:59 Output Total 20 10 Balance -20 -10 Weight 79.379 kg Output: Drainage 20 10 Lower Anterior Abdomen 20 10 Other: # Voids 2 4 - Labs CBC & Chem 7: 07/31/22 07:47 07/29/22 07:47 Labs: Abnormal Lab Results - Last 24 Hours (Table) 07/31/22 Range/Units 07:47 Metamyelocytes % 1 H (0-0) % Myelocytes % 3 H (0-0) % Lymphocytes # (Manual) 0.81 L (0.90-5.00) X 10*3/uL Basophils # (Manual) 0.16 H (0.00-0.10) X 10*3/uL
== END 2022-07-31 13:25 | disposition home health service (06) | DRG 853 ==
LOC: EC 02:21 → 4SSUR 04:42
PROVIDERS: ADMIT Surgery; ATTEND Surgery
PROC: 0DTJ4ZZ Resection of Appendix, Percutaneous Endoscopic Approach (ICD-10-PCS; principal; 2022-07-25 13:00)
PROC: 02HV33Z Insertion of Infusion Device into Superior Vena Cava, Percutaneous Approach (ICD-10-PCS; 2022-07-30)
DX: A41.9 Sepsis, unspecified organism (principal); K35.32 Acute appendicitis with perforation, localized peritonitis, and gangrene, without abscess; B37.0 Candidal stomatitis; K21.9 Gastro-esophageal reflux disease without esophagitis; E78.5 Hyperlipidemia, unspecified; F32.A Depression, unspecified; E87.6 Hypokalemia; R74.01 Elevation of levels of liver transaminase levels; F17.210 Nicotine dependence, cigarettes, uncomplicated; Z71.6 Tobacco abuse counseling; Z79.899 Other long term (current) drug therapy
CPT/HCPCS: 36415; 36573; 71045; 74177; 80048; 80053; 81001; 83735; 85025; 85610; 85730; 88304; 93005; 96361; 96374; 99285

== ENCOUNTER 2022-08-14 18:02 | Emergency (ER) | payer OTHER ==
[2022-08-14 18:19] VITALS: TEMP 98.2
[2022-08-14] MEDS ORDERED: SODIUM CHLORIDE 0.9% 1,000 ML IV STA ×2 (18:38)
[2022-08-14] MEDS ORDERED: HYDROmorphone 0.5 MG/0.5 ML SYRINGE IVP STA (18:39)
--- NOTE | 2022-08-14 18:42 | ED ---
General Adult HPI - General Chief complaint: Recheck/Abnormal Lab/Rx Stated complaint: abd pain Time Seen by Provider: 08/14/22 18:28 Source: patient, RN notes reviewed, old records reviewed Mode of arrival: ambulatory Limitations: no limitations - History of Present Illness Initial comments: Nontoxic-appearing 47-year-old male presents to the emergency room with complaints of left lower abdominal pain. States he had appendectomy on July 25. Did see Dr[address] Leone on and was told he was not out of the with yet. States the pain increased today which prompted him to come to the emergency room. Denies any nausea vomiting or fevers. Did have diarrhea today. History of cholecystectomy, GERD and hyperlipidemia -: days(s) (1) Location: abdomen (llq) Severity scale (1-10): 7 Quality: stabbing, sharp Consistency: constant Associated Symptoms: denies other symptoms Treatments Prior to Arrival: other (antibiotics) - Related Data Home Medications Medication Instructions Recorded Confirmed Atorvastatin [Lipitor] 40 mg PO DAILY 11/13/21 07/25/22 Gabapentin [Neurontin] 300 mg PO BID PRN 11/13/21 07/25/22 Omeprazole 40 mg PO DAILY 11/13/21 07/25/22 buPROPion HCL [Wellbutrin XL] 300 mg PO DAILY 11/13/21 07/25/22 Previous Rx's Medication Instructions Recorded HYDROcodone/APAP 7.5-325MG [[place] 1 tab PO Q4H PRN 3 Days #18 tab 07/30/22 7.5-325] Allergies Allergy/AdvReac Type Severity Reaction Status Date / Time No Known Allergies Allergy Verified 08/14/22 18:19 Review of Systems ROS Statement: Those systems with pertinent positive or pertinent negative responses have been documented in the HPI. ROS Other: All systems not noted in ROS Statement are negative. Past Medical History Past Medical History: GERD/Reflux, Hyperlipidemia Additional Past Medical History / Comment(s): GALLBLADDER ISSUES History of Any Multi-Drug Resistant Organisms: None Reported Past Surgical History: Cholecystectomy, Orthopedic Surgery Additional Past Surgical History / Comment(s): right knee and hip SX Past Anesthesia/Blood Transfusion Reactions: No Reported Reaction Past Psychological History: No Psychological Hx Reported Smoking Status: Current every day smoker Past Alcohol Use History: Occasional Past Drug Use History: None Reported - Past Family History Mother Family Medical History: No Reported History Father Family Medical History: No Reported History General Exam Limitations: no limitations General appearance: alert, in no apparent distress Head exam: Present: atraumatic Eye exam: Absent: scleral icterus, conjunctival injection, periorbital swelling ENT exam: Present: mucous membranes moist Respiratory exam: Present: normal lung sounds bilaterally. Absent: respiratory distress, accessory muscle use Cardiovascular Exam: Present: regular rate, normal rhythm GI/Abdominal exam: Present: soft, tenderness (Left lower quadrant). Absent: distended, rigid Back exam: Present: normal inspection. Absent: tenderness, CVA tenderness (R), CVA tenderness (L), rash noted Neurological exam: Present: alert, oriented X3 Psychiatric exam: Present: normal affect, normal mood Skin exam: Present: warm, dry, normal color. Absent: cyanosis, diaphoretic, petechiae, pallor Course Vital Signs 08/14/22 08/14/22 08/14/22 18:15 18:53 20:51 Temperature 98.2 F Pulse Rate 74 73 71 Respiratory 18 18 16 Rate Blood Pressure 122/80 120/85 129/84 O2 Sat by Pulse 98 99 96 Oximetry Medical Decision Making - Medical Decision Making CT the abdomen contrast shows postsurgical changes right lower quadrant with appendectomy. Mild inflammatory changes in the right lower quadrant. Could be early infectious inflammatory process versus postsurgical change. No organizing fluid collections at this time. No evidence of bowel obstruction. No evidence of leukocytosis. Vital signs are stable patient is afebrile. He was given IV fluids and Dilaudid for pain with relief Patient feeling better agreeable to being discharged home. Strict return parameters were discussed. Case discussed with Dr. Jones cholecystectomy, GERD and hyperlipidemia Was pt. sent in by a medical professional or institution? @ -no Did you speak to anyone other than the patient for history? @ -no Did you review nursing and triage notes? @ -yes i agree Were old charts reviewed? @ -yes previous admission Differential Diagnosis? @ -Differential Abdominal Pain Men: diverticulosis, ischemic bowel, pancreatitis, hepatitis, gastroenteritis, AAA, incarcerated hernia, bowel obstruction, constipation, inflammatory bowel, hepatitis, peptic ulcer disease, splenic infarction, perforated viscus, this is not meant to be an all-inclusive list EKG interpreted by me (3pts min.)? @ -[none] X-rays interpreted by me (1pt min.)? @ -[none] CT interpreted by me (1pt min.)? @ -no U/S interpreted by me (1pt. min.)? @ -[none] What testing was considered but not performed? (CT, X-rays, U/S, labs)? Why? @ none What meds were considered but not given? Why? @ -no Did you discuss the management of the patient with other professionals? @ -no Did you reconcile home meds? @ -no Was smoking cessation discussed for >3mins.? @ -yes Was critical care preformed (if so, how long)? @ -no Were there social determinants of health that impacted care today? How? (Homelessness, low income, unemployed, alcoholism, drug addiction, transportation, low edu. Level, literacy, decrease access to med. care, retirement, rehab)? @ -no Was there de-escalation of care discussed even if they declined? (Discuss DNR or withdrawal of care, Hospice)? @ -no What co-morbidities impacted this encounter? (DM, HTN, Smoking, COPD, CAD, Cancer, CVA, Hep., AIDS, mental health diagnosis, sleep apnea, morbid obesity)? @ -GERD, hyperlipidemia, smoking Was patient admitted / discharged? @ -discharged Undiagnosed new problem with uncertain prognosis? @ -[none] Drug Therapy requiring intensive monitoring for toxicity (Heparin, Nitro, Insulin, Cardizem)? @ -no Were any procedures done? @ -no Diagnosis/symptom? @ -Abdominal pain status post appendectomy Acute, or Chronic, or Acute on Chronic? @ -Acute Uncomplicated (without systemic symptoms) or Complicated (systemic symptoms)? @ -Complicated Side effects of treatment? @ -[none] Exacerbation, Progression, or Severe Exacerbation] @ -[no] Poses a threat to life or bodily function? @ -[no] - Lab Data Result diagrams: 08/14/22 18:59 08/14/22 18:59 Lab Results 08/14/22 08/14/22 08/14/22 Range/Units 18:59 18:59 18:59 WBC 6.0 (3.8-10.6) k/uL RBC 4.66 (4.30-5.90) m/uL Hgb 13.9 (13.0-17.5) gm/dL Hct 39.8 (39.0-53.0) % MCV 85.5 (80.0-100.0) fL MCH 29.7 (25.0-35.0) pg MCHC 34.8 (31.0-37.0) g/dL RDW 13.6 (11.5-15.5) % Plt Count 234 (150-450) k/uL MPV 7.3 Neutrophils % 62 % Lymphocytes % 24 % Monocytes % 8 % Eosinophils % 3 % Basophils % 0 % Neutrophils # 3.7 (1.3-7.7) k/uL Lymphocytes # 1.5 (1.0-4.8) k/uL Monocytes # 0.5 (0-1.0) k/uL Eosinophils # 0.2 (0-0.7) k/uL Basophils # 0.0 (0-0.2) k/uL Sodium 142 (137-145) mmol/L Potassium 4.0 (3.5-5.1) mmol/L Chloride 110 H (98-107) mmol/L Carbon Dioxide 25 (22-30) mmol/L Anion Gap 7 mmol/L BUN 9 (9-20) mg/dL Creatinine 0.80 (0.66-1.25) mg/dL Est GFR (CKD-EPI)AfAm >90 (>60 ml/min/1.73 sqM) Est GFR (CKD-EPI)NonAf >90 (>60 ml/min/1.73 sqM) Glucose 92 (74-99) mg/dL Plasma Lactic Acid Robert 0.7 (0.7-2.0) mmol/L Calcium 8.9 (8.4-10.2) mg/dL Total Bilirubin 0.4 (0.2-1.3) mg/dL AST 39 (17-59) U/L ALT 55 H (4-49) U/L Alkaline Phosphatase 115 (38-126) U/L Total Protein 7.3 (6.3-8.2) g/dL Albumin 4.1 (3.5-5.0) g/dL Amylase 72 (30-110) U/L Lipase 310 H (23-300) U/L Disposition Clinical Impression: Postoperative abdominal pain Disposition: HOME SELF-CARE Condition: Good Instructions (If sedation given, give patient instructions): Abdominal Pain (ED) Additional Instructions: Increase your fluid intake. Stop smoking. Follow-up with Dr. Leone next week. Return to the emergency room with any new or concerning symptoms including increased pain, fevers, difficulty breathing persistent nausea vomiting. Is patient prescribed a controlled substance at d/c from ED?: No Referrals: Jessica Ramos DO [Primary Care Provider] - 1-2 days Abel Leone MD [Medical Doctor] - 1-2 days Time of Disposition: 20:32
[2022-08-14 19:16] LABS: Basophils % (A) 0 %; Eosinophils # (A) 0.2 k/uL (0-0.7); Eosinophils % (A) 3 %; HCT 39.8 % (39.0-53.0); HGB 13.9 gm/dL (13.0-17.5); Lymphocytes # (A) 1.5 k/uL (1.0-4.8); Lymphocytes % (A) 24 %; MCH 29.7 pg (25.0-35.0); MCHC 34.8 g/dL (31.0-37.0); MCV 85.5 fL (80.0-100.0); Mean Platelet Volume 7.3; Monocytes # (A) 0.5 k/uL (0-1.0); Monocytes % (A) 8 %; Neutrophils # (A) 3.7 k/uL (1.3-7.7); Neutrophils % (A) 62 %; Platelet Count 234 k/uL (150-450); RBC 4.66 m/uL (4.30-5.90); RDW 13.6 % (11.5-15.5)
[2022-08-14 19:30] LABS: ALT 55 U/L (4-49); AST 39 U/L (17-59); African American GFR (CKD) >90 (>60 ml/min/1.73 sqM); Albumin 4.1 g/dL (3.5-5.0); Alkaline Phosphatase 115 U/L (38-126); Amylase 72 U/L (30-110); Anion Gap 7 mmol/L; Blood Urea Nitrogen 9 mg/dL (9-20); Calcium 8.9 mg/dL (8.4-10.2); Carbon Dioxide 25 mmol/L (22-30); Chloride 110 mmol/L (98-107); Glucose 92 mg/dL (74-99); Lipase 310 U/L (23-300); Non-African American GFR(CKD) >90 (>60 ml/min/1.73 sqM); Sodium 142 mmol/L (137-145); Total Bilirubin 0.4 mg/dL (0.2-1.3); Total Protein 7.3 g/dL (6.3-8.2)
--- NOTE | 2022-08-14 20:11 | CT ---
EXAMINATION TYPE: CT abdomen pelvis w con CT DLP: 895.9 mGycm, Automated exposure control for dose reduction was used. DATE OF EXAM: 08/14/2022 7:43 PM COMPARISON: CT abdomen pelvis most recent from 07/29/2022 CLINICAL INDICATION:Male, 47 years old with history of abdominal pain post op appy 07/25/22; sharp lowe r abd pain. Pt had appendix removed on 07/25/2022 TECHNIQUE: Axial CT of the abdomen and pelvis. Sagittal and coronal reformats were created on a [employer] workstation. Contrast used:100ml mL of Isovue 300 with IV Contrast, Oral contrast used: without Oral Contrast FINDINGS: LOWER CHEST: Unremarkable ABDOMEN LIVER: Unremarkable GALLBLADDER AND BILE DUCTS: Unremarkable. PANCREAS: Unremarkable. SPLEEN: Presumably left splenic pseudocyst with peripheral calcification measuring up to 4.4 x 4.1 cm . ADRENAL GLANDS: Unremarkable. KIDNEYS AND URETERS: No evidence of hydronephrosis or renal calculus. The ureters are unremarkable. PELVIS BLADDER: Unremarkable REPRODUCTIVE: Unremarkable. ABDOMEN & PELVIS STOMACH AND BOWEL: No evidence of bowel obstruction. Postsurgical changes to the appendix with some f at stranding changes presumably postsurgical. No organizing fluid collection. PERITONEUM/RETROPERITONEUM: No evidence of pneumoperitoneum or free fluid. . VASCULATURE: No evidence of aortic aneurysm. MUSCULOSKELETAL: No acute osseous abnormalities LYMPH NODES: No gross evidence for lymphadenopathy. SOFT TISSUE/ABDOMINAL WALL: Anterior abdominal wall port site noted in the left abdomen. No evidence for organizing fluid collection. Left fat-containing inguinal hernia. IMPRESSION: 1. Postsurgical changes right lower quadrant with appendectomy as reported in history. There is mild inflammation changes in the right lower quadrant. Could be early infectious/inflammatory process veronica mikael postsurgical change. No organizing fluid collections at this time. Correlate with blood work, con automation controls engineer antibiotics to ensure resolution. 2. No evidence for bowel obstruction.
[2022-08-14 20:52] VITALS: BP 129/84; PULSE 71; RESP 16
== END 2022-08-14 20:54 | disposition home or self-care (01) ==
LOC: EC 18:02
DX: G89.18 Other acute postprocedural pain (principal); R10.32 Left lower quadrant pain; E78.5 Hyperlipidemia, unspecified; K21.9 Gastro-esophageal reflux disease without esophagitis; F17.200 Nicotine dependence, unspecified, uncomplicated; Z90.49 Acquired absence of other specified parts of digestive tract; Z79.899 Other long term (current) drug therapy
CPT/HCPCS: 36415; 80053; 82150; 83605; 83690; 85025; 74177; 99284; 96374; 96361; J1170; Q9967

== ENCOUNTER 2022-11-03 14:03 | Emergency (ER) | payer OTHER ==
[2022-11-03 14:08] VITALS: TEMP 97.8
[2022-11-03] MEDS ORDERED: SODIUM CHLORIDE 0.9% 1,000 ML IV ONE (15:25)
[2022-11-03] MEDS ORDERED: FAMOTIDINE 20 MG/2 ML VIAL IV STA (15:25)
[2022-11-03] MEDS ORDERED: MAG HYDROX/AL HYDROX/SIMETH 30 ML, HYOSCYAMINE ELIXIR 10 ML, LIDOCAINE VISCOUS 2% 10 ML PO STA ×3 (15:26)
--- NOTE | 2022-11-03 16:10 | ED ---
Abdominal Pain HPI - General Chief Complaint: Abdominal Pain Stated Complaint: abd pain Time Seen by Provider: 11/03/22 15:06 Source: patient Mode of arrival: ambulatory Limitations: no limitations - History of Present Illness Initial Comments: This patient is a 47-year-old man who presents with upper abdominal pain that is been going on for a couple of weeks, much worse since this morning. He describes it as an aching character with sharp exacerbations. He states that the exacerbation has been going on since this morning. He states that the pain reminds him of the way he felt prior to having his gallbladder out which was in March. He also has noted some loose bowel movements and nausea. No vomiting. No fever or chills. No change in urination noted. No pain or swelling to the scrotum or testicles. Onset/Timin -: week(s) Location: LUQ, RUQ, epigastric Radiation: none Migration to: no migration Severity: severe Quality: aching, sharp Consistency: constant Improves With: nothing Worsens With: nothing Associated Symptoms: nausea, diarrhea - Related Data Home Medications Medication Instructions Recorded Confirmed Atorvastatin [Lipitor] 40 mg PO DAILY 11/13/21 11/03/22 Gabapentin [Neurontin] 300 mg PO BID PRN 11/13/21 11/03/22 Omeprazole 40 mg PO DAILY 11/13/21 11/03/22 buPROPion HCL [Wellbutrin XL] 300 mg PO DAILY 11/13/21 11/03/22 Celecoxib [CeleBREX] 200 mg PO DAILY 11/03/22 11/03/22 traMADol HCL 50 mg PO QID PRN 11/03/22 11/03/22 Previous Rx's Medication Instructions Recorded Amoxic-Pot Clav 875-125Mg 1 tab PO Q12HR 1 Days #14 tab 11/03/22 [Augmentin 875-125] HYDROcodone/APAP 5-325MG [[place] 1 tab PO Q4HR PRN 3 Days #18 tab 11/03/22 5-325] Ondansetron Odt [Zofran ODT] 4 mg PO Q8HR PRN #10 tab 11/03/22 Allergies Allergy/AdvReac Type Severity Reaction Status Date / Time No Known Allergies Allergy Verified 11/03/22 15:59 Review of Systems ROS Statement: Those systems with pertinent positive or pertinent negative responses have been documented in the HPI. ROS Other: All systems not noted in ROS Statement are negative. Constitutional: Denies: fever, chills Respiratory: Denies: cough, dyspnea Cardiovascular: Denies: chest pain, palpitations Gastrointestinal: Reports: abdominal pain, nausea, diarrhea. Denies: vomiting, constipation, melena, hematochezia Genitourinary: Denies: dysuria, hematuria, testicular pain, testicular mass Musculoskeletal: Denies: back pain Skin: Denies: rash Neurological: Denies: headache, weakness, numbness Past Medical History Past Medical History: GERD/Reflux, Hyperlipidemia Additional Past Medical History / Comment(s): GALLBLADDER ISSUES History of Any Multi-Drug Resistant Organisms: None Reported Past Surgical History: Appendectomy, Cholecystectomy, Orthopedic Surgery Additional Past Surgical History / Comment(s): right knee and hip SX. appendectomy - July 2022 Past Anesthesia/Blood Transfusion Reactions: No Reported Reaction Past Psychological History: No Psychological Hx Reported Smoking Status: Current every day smoker Past Alcohol Use History: Occasional Past Drug Use History: None Reported - Past Family History Mother Family Medical History: No Reported History Father Family Medical History: No Reported History General Exam Limitations: no limitations General appearance: alert, in no apparent distress Head exam: Present: atraumatic, normocephalic Eye exam: Present: normal appearance. Absent: scleral icterus, conjunctival injection Respiratory exam: Present: normal lung sounds bilaterally. Absent: respiratory distress, wheezes, rales, rhonchi, stridor Cardiovascular Exam: Present: regular rate, normal rhythm, normal heart sounds. Absent: systolic murmur, diastolic murmur, rubs, gallop GI/Abdominal exam: Present: soft, tenderness (Mild upper abdominal tenderness no rebound or guarding), normal bowel sounds. Absent: distended, guarding, rebound, rigid, mass, pulsatile mass, hernia Extremities exam: Present: normal inspection, normal capillary refill. Absent: pedal edema, calf tenderness Back exam: Present: normal inspection. Absent: CVA tenderness (R), CVA tenderness (L) Neurological exam: Present: alert Skin exam: Present: warm, dry, intact, normal color. Absent: rash Course Vital Signs 11/03/22 11/03/22 14:06 20:02 Temperature 97.8 F 97.8 F Pulse Rate 89 77 Respiratory 20 17 Rate Blood Pressure 144/96 140/82 O2 Sat by Pulse 99 95 Oximetry Medical Decision Making - Medical Decision Making This patient is 47-year-old man here to have evaluation for abdominal pain. The workup included computed tomography scan of the abdomen and pelvis which I interpreted as showing some degree of diverticulitis of the colon. No evidence of obstruction or acute surgical condition. The radiology report does also indicate probable diverticular pouch which is near the area of inflammation. The case is discussed with Dr. Steele, and her treatment recommendations incorporated. The patient given antibiotics and will have close follow-up. Discussed further care as well as return parameters Was pt. sent in by a medical professional or institution (, PA, METAL OR WOOD BLOCKER, urgent care, hospital, or senior care...) When possible be specific @ -[No] Did you speak to anyone other than the patient for history (EMS, parent, family, police, friend...)? What history was obtained from this source @ -[No] Did you review nursing and triage notes (agree or disagree)? Why? @ -[I reviewed and agree with nursing and triage notes] Were old charts reviewed (outside hosp., previous admission, EMS record, old EKG, old radiological studies, urgent care reports/EKG's, senior care records)? Report findings @ -[No old charts were reviewed] Differential Diagnosis (chest pain, altered mental status, abdominal pain women, abdominal pain men, vaginal bleeding, weakness, fever, dyspnea, syncope, headache, dizziness, GI bleed, back pain, seizure, CVA, palpatations, mental health, musculoskeletal)? @ -[Differential Abdominal Pain Women: Appendicitis, Cholecystitis, diverticulosis, ischemic bowel, pancreatitis, hepat itis, UTI, gastroenteritis, AAA, incarcerated hernia, bowel obstruction, constipation, inflammatory bowel, hepatitis, peptic ulcer disease, splenic infarction, perforated viscus, vulvitis, ovarian torsion, PID, kidney stone, placenta abruption, this is not meant to be an all-inclusive list EKG interpreted by me (3pts min.). @ -[ X-rays interpreted by me (1pt min.). @ -[None done] CT interpreted by me (1pt min.). @ -[As above U/S interpreted by me (1pt. min.). @ -[None done] What testing was considered but not performed or refused? (CT, X-rays, U/S, labs)? Why? @ -[None] What meds were considered but not given or refused? Why? @ -[None] Did you discuss the management of the patient with other professionals (professionals i.e. , PA, METAL OR WOOD BLOCKER, lab, RT, psych nurse, health and social care teacher, cake former, teacher, president and chief operating officer, catalytic case operator)? Give summary @ -[Case is discussed with the surgeon regarding appropriate treatment, as well as follow-up. Was smoking cessation discussed for >3mins.? @ -[No] Was critical care preformed (if so, how long)? @ -[No] Were there social determinants of health that impacted care today? How? (Homelessness, low income, unemployed, alcoholism, drug addiction, transportation, low edu. Level, literacy, decrease access to med. care, fpc, rehab)? @ -[No] Was there de-escalation of care discussed even if they declined (Discuss DNR or withdrawal of care, Hospice)? DNR status @ -[No] What co-morbidities impacted this encounter? (DM, HTN, Smoking, COPD, CAD, Cancer, CVA, ARF, Chemo, Hep., AIDS, mental health diagnosis, sleep apnea, morb id obesity)? @ -[None] Was patient admitted / discharged? Hospital course, mention meds given and route, prescriptions, significant lab abnormalities, going to OR and other pertinent info. @ -[Discharged Undiagnosed new problem with uncertain prognosis? @ -[No] Drug Therapy requiring intensive monitoring for toxicity (Heparin, Nitro, Insulin, Cardizem)? @ -[No] Were any procedures done? @ -[No] Diagnosis/symptom? @ -[Acute diverticulitis Acute, or Chronic, or Acute on Chronic? @ -[default] Uncomplicated (without systemic symptoms) or Complicated (systemic symptoms)? @ -[Uncomplicated Side effects of treatment? @ -[No] Exacerbation, Progression, or Severe Exacerbation? @ -[No] Poses a threat to life or bodily function? How? (Chest pain, USA, MD, pneumonia, PE, COPD, DKA, ARF, appy, cholecystitis, CVA, Diverticulitis, Homicidal, Suicidal, threat to staff... and all critical care pts) @ -[No] - Lab Data Result diagrams: 11/03/22 15:37 11/03/22 15:37 Lab Results 11/03/22 11/03/22 11/03/22 Range/Units 15:37 15:37 15:37 WBC 7.2 (3.8-10.6) k/uL RBC 5.56 (4.30-5.90) m/uL Hgb 16.2 (13.0-17.5) gm/dL Hct 46.3 (39.0-53.0) % MCV 83.3 (80.0-100.0) fL MCH 29.2 (25.0-35.0) pg MCHC 35.1 (31.0-37.0) g/dL RDW 13.7 (11.5-15.5) % Plt Count 202 (150-450) k/uL MPV 8.2 Neutrophils % 67 % Lymphocytes % 22 % Monocytes % 5 % Eosinophils % 3 % Basophils % 0 % Neutrophils # 4.8 (1.3-7.7) k/uL Lymphocytes # 1.6 (1.0-4.8) k/uL Monocytes # 0.4 (0-1.0) k/uL Eosinophils # 0.2 (0-0.7) k/uL Basophils # 0.0 (0-0.2) k/uL Sodium 139 (137-145) mmol/L Potassium 4.4 (3.5-5.1) mmol/L Chloride 107 (98-107) mmol/L Carbon Dioxide 24 (22-30) mmol/L Anion Gap 8 mmol/L BUN 11 (9-20) mg/dL Creatinine 0.70 (0.66-1.25) mg/dL Est GFR (CKD-EPI)AfAm >90 (>60 ml/min/1.73 sqM) Est GFR (CKD-EPI)NonAf >90 (>60 ml/min/1.73 sqM) Glucose 107 H (74-99) mg/dL Calcium 9.3 (8.4-10.2) mg/dL Total Bilirubin 0.6 (0.2-1.3) mg/dL AST 60 H (17-59) U/L ALT 73 H (4-49) U/L Alkaline Phosphatase 105 (38-126) U/L C-Reactive Protein 0.5 (<1.0) mg/dL Total Protein 8.0 (6.3-8.2) g/dL Albumin 4.6 (3.5-5.0) g/dL Amylase 63 (30-110) U/L Lipase 118 (23-300) U/L Urine Color Light Yellow Urine Appearance Clear (Clear) Urine pH 6.0 (5.0-8.0) Ur Specific [place] 1.010 (1.001-1.035) Urine Protein Negative (Negative) Urine Glucose (UA) Negative (Negative) Urine Ketones Negative (Negative) Urine Blood Negative (Negative) Urine Nitrite Negative (Negative) Urine Bilirubin Negative (Negative) Urine Urobilinogen <2.0 (<2.0) mg/dL Ur Leukocyte Esterase Negative (Negative) Disposition Clinical Impression: Diverticulitis of both large and small intestine Disposition: HOME SELF-CARE Condition: Good Instructions (If sedation given, give patient instructions): Diverticulitis (ED) Prescriptions: Amoxic-Pot Clav 875-125Mg [Augmentin 875-125] 1 tab PO Q12HR 1 Days #14 tab HYDROcodone/APAP 5-325MG [[place] 5-325] 1 tab PO Q4HR PRN 3 Days #18 tab PRN Reason: Pain Ondansetron Odt [Zofran ODT] 4 mg PO Q8HR PRN #10 tab PRN Reason: Nausea Is patient prescribed a controlled substance at d/c from ED?: Yes When asked, does pt state using other controlled substances?: No If prescribed controlled substance>3 days was MAPS reviewed?: Prescribed <3 Days If opioid is for acute pain is fill amount 7 days or less?: Yes If Rx opioid, was Start Talking consent form obtained?: Yes Referrals: Jessica Ramos DO [Primary Care Provider] - 1-2 days Carolyn Steele MD [STAFF PHYSICIAN] - 1-2 days
[2022-11-03 16:11] LABS: Appearance,Urine Clear (Clear); Basophils % (A) 0 %; Bilirubin,Urine Negative (Negative); Blood,Urine Negative (Negative); Color,Urine Light Yellow; Eosinophils # (A) 0.2 k/uL (0-0.7); Eosinophils % (A) 3 %; Glucose,Urine (UA) Negative (Negative); HCT 46.3 % (39.0-53.0); HGB 16.2 gm/dL (13.0-17.5); Ketones,Urine Negative (Negative); Leukocyte Esterase,Urine Negative (Negative); Lymphocytes # (A) 1.6 k/uL (1.0-4.8); Lymphocytes % (A) 22 %; MCH 29.2 pg (25.0-35.0); MCHC 35.1 g/dL (31.0-37.0); MCV 83.3 fL (80.0-100.0); Mean Platelet Volume 8.2; Monocytes # (A) 0.4 k/uL (0-1.0); Monocytes % (A) 5 %; Neutrophils # (A) 4.8 k/uL (1.3-7.7); Neutrophils % (A) 67 %; Nitrite,Urine Negative (Negative); Platelet Count 202 k/uL (150-450); Protein,Urine Negative (Negative); RBC 5.56 m/uL (4.30-5.90); RDW 13.7 % (11.5-15.5); Urobilinogen,Urine <2.0 mg/dL (<2.0); WBC 7.2 k/uL (3.8-10.6)
[2022-11-03] MEDS ORDERED: MORPHINE SULFATE 4 MG/ML SYRINGE IV STA (16:11)
[2022-11-03 16:28] LABS: ALT 73 U/L (4-49); African American GFR (CKD) >90 (>60 ml/min/1.73 sqM); Albumin 4.6 g/dL (3.5-5.0); Amylase 63 U/L (30-110); Anion Gap 8 mmol/L; Blood Urea Nitrogen 11 mg/dL (9-20); C Reactive Protein 0.5 mg/dL (<1.0); Calcium 9.3 mg/dL (8.4-10.2); Carbon Dioxide 24 mmol/L (22-30); Chloride 107 mmol/L (98-107); Glucose 107 mg/dL (74-99); Lipase 118 U/L (23-300); Non-African American GFR(CKD) >90 (>60 ml/min/1.73 sqM); Sodium 139 mmol/L (137-145); Total Bilirubin 0.6 mg/dL (0.2-1.3)
[2022-11-03 16:39] LABS: AST 60 U/L (17-59); Potassium 4.4 mmol/L (3.5-5.1)
[2022-11-03 16:40] LABS: Alkaline Phosphatase 105 U/L (38-126)
--- NOTE | 2022-11-03 18:17 | CT ---
EXAMINATION TYPE: CT abdomen pelvis wo con CT DLP: 662.7 mGycm, Automated exposure control for dose reduction was used. DATE OF EXAM: 11/03/2022 5:28 PM COMPARISON: CT abdomen pelvis most recent from 09/16/2022 CLINICAL INDICATION:Male, 47 years old with history of abdominal pain, upper; upper abd pain x2 month s TECHNIQUE: Axial CT of the abdomen and pelvis. Sagittal and coronal reformats were created on a [employer] workstation. Contrast used: None Oral contrast used: without Oral Contrast FINDINGS: LOWER CHEST: Unremarkable ABDOMEN LIVER: Unremarkable GALLBLADDER AND BILE DUCTS: Unremarkable. PANCREAS: Unremarkable. SPLEEN: Splenic pseudocyst with peripheral calcification noted. ADRENAL GLANDS: Unremarkable. KIDNEYS AND URETERS: No evidence of hydronephrosis or renal calculus. The ureters are unremarkable. PELVIS BLADDER: Unremarkable REPRODUCTIVE: Unremarkable. ABDOMEN & PELVIS STOMACH AND BOWEL: No evidence of bowel obstruction. Mild Fat stranding changes around thee sigmoid c olon which is near the distal ileum where there is a small outpouching of small bowel. Series 202 pedro ge 40 and series 201 image 123. No evidence for diverticulitis. No organizing fluid collection. The a ppendix is surgically absent. PERITONEUM/RETROPERITONEUM: No evidence of pneumoperitoneum or free fluid. VASCULATURE: No evidence of aortic aneurysm. MUSCULOSKELETAL: No acute osseous abnormalities LYMPH NODES: No gross evidence for lymphadenopathy. SOFT TISSUE/ABDOMINAL WALL: Unremarkable IMPRESSION: 1. Mild inflammation changes around the sigmoid colon near a small bowel outpouching in area of prio r colitis/diverticulitis. No additional acute process identified. 2. Splenic peripherally calcified pseudocyst is unchanged.
[2022-11-03] MEDS ORDERED: HYDROmorphone 0.5 MG/0.5 ML SYRINGE IVP STA (19:45)
[2022-11-03] MEDS ORDERED: AMOXIC-POT CLAV 875-125MG 1 EACH TAB PO STA (19:46)
[2022-11-03 20:03] VITALS: BP 140/82; PULSE 77; RESP 17
== END 2022-11-03 20:33 | disposition home or self-care (01) ==
LOC: EC 14:03
DX: K57.52 Diverticulitis of both small and large intestine without perforation or abscess without bleeding (principal); K21.9 Gastro-esophageal reflux disease without esophagitis; E78.5 Hyperlipidemia, unspecified; F17.200 Nicotine dependence, unspecified, uncomplicated; Z79.899 Other long term (current) drug therapy
CPT/HCPCS: 36415; 80053; 82150; 83690; 85025; 86140; 81003; 74176; 99284; 96374; 96375 ×2; 96361; J2270; J1170

== ENCOUNTER → 2022-11-15 | Outpatient (CLI) | payer OTHER ==
--- NOTE | 2022-11-15 08:53 | US ---
EXAMINATION TYPE: US abdomen complete DATE OF EXAM: 11/15/2022 COMPARISON: CT November 03 2022 CLINICAL INDICATION: Male, 47 years old with history of R10.84 GENERALIZED ABDOMINAL PAIN; Intermitte nt RUQ pain and N/V x couple months TECHNIQUE: Multiple sonographic images of the abdomen are obtained. FINDINGS: EXAM MEASUREMENTS: Liver Length: 16.4 cm CBD: 0.4 cm Spleen: 11.2 cm Right Kidney: 10.4 x 4.8 x 4.6 cm Left Kidney: 10.3 x 5.0 x 4.6 cm Pancreas: obscured by overlying midline bowel gas Liver: course echotexture Gallbladder: surgically absent Evidence for sonographic Stokes's sign: no CBD: visualized portions wnl, limited by overlying bowel gas Spleen: 4.2 x 4.0 x 4.2cm hypoechoic area with calcified rim Right Kidney: wnl Left Kidney: wnl Upper IVC: wnl Abd Aorta: wnl The visualized liver is heterogeneously hyperechoic. No adjacent ascites. The intrahepatic portion o f the IVC and visualized abdominal aorta are within normal limits. Gallbladder is surgically absent. Visualized portion of Common bile duct is not dilated. The visualized portions of the pancreas are homogenous. The spleen shows 4.2 cm round hyperechoic lesion corresponding to the rim calcified cyst on CT. Kidneys are symmetric and free of hydronephrosis. No renal lesions are seen. IMPRESSION: Suboptimal study. No suspicious new or acute findings seen to account for patient's sympt oms of right upper quadrant pain.
== END | disposition home or self-care (01) ==
LOC: RADUSWWP 07:33
PROVIDERS: ATTEND Family Medicine
DX: R10.84 Generalized abdominal pain (principal)
CPT/HCPCS: 76700

== ENCOUNTER 2024-08-15 08:15 | Emergency (ER) | payer BC, OTHER ==
[2024-08-15] MEDS: ONDANSETRON 4 MG/2 ML VIAL IVP STA (08:41)
[2024-08-15] MEDS: SODIUM CHLORIDE 0.9% 1,000 ML IV STA (08:41)
[2024-08-15] MEDS: HYDROmorphone 0.5 MG/0.5 ML SYRINGE IVP STA ×2 (08:44→10:34)
[2024-08-15 08:49] LABS: Basophils % (A) 1 %; Eosinophils # (A) 0.1 k/uL (0-0.7); Eosinophils % (A) 1 %; HCT 50.3 % (39.0-53.0); Lymphocytes # (A) 1.1 k/uL (1.0-4.8); Lymphocytes % (A) 20 %; MCH 29.2 pg (25.0-35.0); MCHC 33.7 g/dL (31.0-37.0); MCV 86.8 fL (80.0-100.0); Mean Platelet Volume 7.6; Monocytes # (A) 0.6 k/uL (0-1.0); Monocytes % (A) 10 %; Neutrophils # (A) 3.7 k/uL (1.3-7.7); Neutrophils % (A) 65 %; Platelet Count 166 k/uL (150-450); RDW 12.8 % (11.5-15.5); WBC 5.6 k/uL (3.8-10.6)
[2024-08-15 09:07] LABS: ALT 53 U/L (4-49); African American GFR (CKD) >90 (>60 ml/min/1.73 sqM); Albumin 5.2 g/dL (3.5-5.0); Amylase 65 U/L (30-110); Anion Gap 9 mmol/L; Blood Urea Nitrogen 24 mg/dL (9-20); Calcium 9.4 mg/dL (8.4-10.2); Carbon Dioxide 26 mmol/L (22-30); Chloride 103 mmol/L (98-107); Glucose 107 mg/dL (74-99); Lipase 122 U/L (23-300); Non-African American GFR(CKD) 88 (>60 ml/min/1.73 sqM); Sodium 138 mmol/L (137-145); Total Bilirubin 1.1 mg/dL (0.2-1.3)
--- NOTE | 2024-08-15 09:12 | ED ---
General Adult HPI - General Chief complaint: Back Pain/Injury Stated complaint: back pain, fever Time Seen by Provider: 08/15/24 08:19 Source: patient, RN notes reviewed Mode of arrival: ambulatory Limitations: no limitations - History of Present Illness Initial comments: 49-year-old male presents emergency department chief complaint of abdominal pain. Patient states lower wraps around to his back. He denies any trauma denies anything that makes it feel better or worse denies any bowel, bladder incontinence retention no saddle anesthesias no lower extremity weakness or paresthesias. Patient states that he has had no urinary symptoms he has had m ild change stools without melanotic stools. Patient does have a history of diverticulitis. - Related Data Home Medications Medication Instructions Recorded Confirmed Atorvastatin [Lipitor] 40 mg PO HS 11/13/21 08/15/24 Gabapentin [Neurontin] 300 mg PO BID PRN 11/13/21 08/15/24 Omeprazole 40 mg PO DAILY 11/13/21 08/15/24 buPROPion HCL [Wellbutrin XL] 300 mg PO DAILY 11/13/21 08/15/24 traMADol HCL 50 - 100 mg PO Q8H PRN 11/03/22 08/15/24 Previous Rx's Medication Instructions Recorded Amoxic-Pot Clav 875-125Mg 1 tab PO Q12HR #20 tab 08/15/24 [Augmentin 875-125] Allergies Allergy/AdvReac Type Severity Reaction Status Date / Time No Known Allergies Allergy Verified 08/15/24 10:00 Review of Systems ROS Statement: Those systems with pertinent positive or pertinent negative responses have been documented in the HPI. ROS Other: All systems not noted in ROS Statement are negative. Past Medical History Past Medical History: GERD/Reflux, Hyperlipidemia Additional Past Medical History / Comment(s): GALLBLADDER ISSUES History of Any Multi-Drug Resistant Organisms: None Reported Past Surgical History: Appendectomy, Cholecystectomy, Orthopedic Surgery Additional Past Surgical History / Comment(s): right knee and hip SX. appendectomy - July 2022 Past Anesthesia/Blood Transfusion Reactions: No Reported Reaction Past Psychological History: No Psychological Hx Reported Smoking Status: Current every day smoker Past Alcohol Use History: Occasional Past Drug Use History: None Reported - Past Family History Mother Family Medical History: No Reported History Father Family Medical History: No Reported History General Exam Limitations: no limitations General appearance: alert, in no apparent distress Head exam: Present: atraumatic, normocephalic, normal inspection Eye exam: Present: normal appearance, PERRL, EOMI. Absent: scleral icterus, conjunctival injection, periorbital swelling Respiratory exam: Present: normal lung sounds bilaterally. Absent: respiratory distress, wheezes, rales, rhonchi, stridor Cardiovascular Exam: Present: regular rate, normal rhythm, normal heart sounds. Absent: systolic murmur, diastolic murmur, rubs, gallop, clicks GI/Abdominal exam: Present: soft, tenderness (Mild-moderate left lower quadrant tenderness), normal bowel sounds. Absent: distended, guarding, rebound, rigid Back exam: Absent: CVA tenderness (R), CVA tenderness (L) Course Vital Signs 08/15/24 08/15/24 08/15/24 08:16 08:43 10:10 Temperature 98.0 F 98.2 F 98.2 F Pulse Rate 89 78 74 Respiratory 16 18 16 Rate Blood Pressure 118/80 121/80 114/74 O2 Sat by Pulse 98 98 96 Oximetry 08/15/24 08/15/24 10:37 10:58 Temperature 98.3 F Pulse Rate 78 Respiratory 18 Rate Blood Pressure 119/77 O2 Sat by Pulse 97 Oximetry Medical Decision Making - Medical Decision Making Was pt. sent in by a medical professional or institution ([facility], [employer], urgent care, hospital, or [facility]...) When possible be specific @ -No Did you speak to anyone other than the patient for history (EMS, parent, family, police, friend...)? What history was obtained from this source @ -No Did you review nursing and triage notes (agree or disagree)? Why? @ -I reviewed and agree with nursing and triage notes Were old charts reviewed (outside hosp., previous admission, EMS record, old EKG, old radiological studies, urgent care reports/EKG's, [facility] records)? Report findings @ -No old charts were reviewed Differential Diagnosis (chest pain, altered mental status, abdominal pain women, abdominal pain men, vaginal bleeding, weakness, fever, dyspnea, syncope, headache, dizziness, GI bleed, back pain, seizure, CVA, palpatations, mental health, musculoskeletal)? @ -Differential Abdominal Pain Men: Appendicitis, cholecystitis, diverticulosis, ischemic bowel, pancreatitis, hepatitis, UTI, gastroenteritis, AAA, incarcerated hernia, bowel obstruction, constipation, inflammatory bowel, hepatitis, peptic ulcer disease, splenic infarction, perforated viscus, testicular torsion, this is not meant to be an all-inclusive list EKG interpreted by me (3pts min.). @ -None X-rays interpreted by me (1pt min.). @ -None done CT interpreted by me (1pt min.). @ -CT abdomen pelvis showing no definite obstruction, mass or acute process at this time U/S interpreted by me (1pt. min.). @ -None done What testing was considered but not performed or refused? (CT, X-rays, U/S, labs)? Why? @ -None What meds were considered but not given or refused? Why? @ -None Did you discuss the management of the patient with other professionals (professionals i.e. , PA, D[employer]ER, lab, RT, psych nurse, social media editor, ore bridge operator, teacher, motorized squad commanding officer, welfare case worker)? Give summary @ -No Was smoking cessation discussed for >3mins.? @ -No Was critical care preformed (if so, how long)? @ -No Were there social determinants of health that impacted care today? How? (Homelessness, low income, unemployed, alcoholism, drug addiction, transportation, low edu. Level, literacy, decrease access to med. care, fdc, rehab)? @ -No Was there de-escalation of care discussed even if they declined (Discuss DNR or withdrawal of care, Hospice)? DNR status @ -No What co-morbidities impacted this encounter? (DM, HTN, Smoking, COPD, CAD, C ancer, CVA, ARF, Chemo, Hep., AIDS, mental health diagnosis, sleep apnea, morbid obesity)? @ -None Was patient admitted / discharged? Hospital course, mention meds given and route, prescriptions, significant lab abnormalities, going to OR and other pertinent info. @ -Discharge patient presented for left lower quadrant abdominal pain worsening symptoms. Patient does have history of diverticulitis symptoms present like early diverticulitis without changes in CT. Patient did and results and labor atory findings. Patient was given Augmentin for concern about possible early infection. Undiagnosed new problem with uncertain prognosis? @ -No Drug Therapy requiring intensive monitoring for toxicity (Heparin, Nitro, Insulin, Cardizem)? @ -No Were any procedures done? @ -No Diagnosis/symptom? @ -Diverticulitis, abdominal pain Acute, or Chronic, or Acute on Chronic? @ -Acute Uncomplicated (without systemic symptoms) or Complicated (systemic symptoms)? @ -Uncomplicated Side effects of treatment? @ -No Exacerbation, Progression, or Severe Exacerbation? @ -No Poses a threat to life or bodily function? How? (Chest pain, [place], [place], pneumonia, PE, COPD, DKA, ARF, appy, cholecystitis, CVA, Diverticulitis, Homicidal, Suicidal, threat to staff... and all critical care pts) @ -No - Lab Data Result diagrams: 08/15/24 08:37 08/15/24 08:37 Lab Results 08/15/24 08/15/24 08/15/24 Range/Units 08:37 08:37 08:37 WBC 5.6 (3.8-10.6) k/uL RBC 5.80 (4.30-5.90) m/uL Hgb 17.0 (13.0-17.5) gm/dL Hct 50.3 (39.0-53.0) % MCV 86.8 (80.0-100.0) fL MCH 29.2 (25.0-35.0) pg MCHC 33.7 (31.0-37.0) g/dL RDW 12.8 (11.5-15.5) % Plt Count 166 (150-450) k/uL MPV 7.6 Neutrophils % 65 % Lymphocytes % 20 % Monocytes % 10 % Eosinophils % 1 % Basophils % 1 % Neutrophils # 3.7 (1.3-7.7) k/uL Lymphocytes # 1.1 (1.0-4.8) k/uL Monocytes # 0.6 (0-1.0) k/uL Eosinophils # 0.1 (0-0.7) k/uL Basophils # 0.0 (0-0.2) k/uL Sodium 138 (137-145) mmol/L Potassium 4.1 (3.5-5.1) mmol/L Chloride 103 (98-107) mmol/L Carbon Dioxide 26 (22-30) mmol/L Anion Gap 9 mmol/L BUN 24 H (9-20) mg/dL Creatinine 0.99 (0.66-1.25) mg/dL Est GFR (CKD-EPI)AfAm >90 (>60 ml/min/1.73 sqM) Est GFR (CKD-EPI)NonAf 88 (>60 ml/min/1.73 sqM) Glucose 107 H (74-99) mg/dL Plasma Lactic Acid Robert 1.2 (0.7-2.0) mmol/L Calcium 9.4 (8.4-10.2) mg/dL Total Bilirubin 1.1 (0.2-1.3) mg/dL AST 52 (17-59) U/L ALT 53 H (4-49) U/L Alkaline Phosphatase 90 (38-126) U/L Total Protein 9.0 H (6.3-8.2) g/dL Albumin 5.2 H (3.5-5.0) g/dL Amylase 65 (30-110) U/L Lipase 122 (23-300) U/L Urine Color Urine Appearance (Clear) Urine pH (5.0-8.0) Ur Specific Fletcher (1.001-1.035) Urine Protein (Negative) Urine Glucose (UA) (Negative) Urine Ketones (Negative) Urine Blood (Negative) Urine Nitrite (Negative) Urine Bilirubin (Negative) Urine Urobilinogen (<2.0) mg/dL Ur Leukocyte Esterase (Negative) Urine WBC (0-5) /hpf Ur Squamous Epith Cells (0-4) /hpf Urine Mucus (None) /hpf 08/15/24 Range/Units 10:03 WBC (3.8-10.6) k/uL RBC (4.30-5.90) m/uL Hgb (13.0-17.5) gm/dL Hct (39.0-53.0) % MCV (80.0-100.0) fL MCH (25.0-35.0) pg MCHC (31.0-37.0) g/dL RDW (11.5-15.5) % Plt Count (150-450) k/uL MPV Neutrophils % % Lymphocytes % % Monocytes % % Eosinophils % % Basophils % % Neutrophils # (1.3-7.7) k/uL Lymphocytes # (1.0-4.8) k/uL Monocytes # (0-1.0) k/uL Eosinophils # (0-0.7) k/uL Basophils # (0-0.2) k/uL Sodium (137-145) mmol/L Potassium (3.5-5.1) mmol/L Chloride (98-107) mmol/L Carbon Dioxide (22-30) mmol/L Anion Gap mmol/L BUN (9-20) mg/dL Creatinine (0.66-1.25) mg/dL Est GFR (CKD-EPI)AfAm (>60 ml/min/1.73 sqM) Est GFR (CKD-EPI)NonAf (>60 ml/min/1.73 sqM) Glucose (74-99) mg/dL Plasma Lactic Acid Robert (0.7-2.0) mmol/L Calcium (8.4-10.2) mg/dL Total Bilirubin (0.2-1.3) mg/dL AST (17-59) U/L ALT (4-49) U/L Alkaline Phosphatase (38-126) U/L Total Protein (6.3-8.2) g/dL Albumin (3.5-5.0) g/dL Amylase (30-110) U/L Lipase (23-300) U/L Urine Color Yellow Urine Appearance Clear (Clear) Urine pH 6.0 (5.0-8.0) Ur Specific Fletcher 1.037 H (1.001-1.035) Urine Protein 1+ H (Negative) Urine Glucose (UA) Negative (Negative) Urine Ketones Negative (Negative) Urine Blood Negative (Negative) Urine Nitrite Negative (Negative) Urine Bilirubin Negative (Negative) Urine Urobilinogen 2.0 (<2.0) mg/dL Ur Leukocyte Esterase Negative (Negative) Urine WBC 3 (0-5) /hpf Ur Squamous Epith Cells <1 (0-4) /hpf Urine Mucus Many H (None) /hpf Disposition Clinical Impression: Diverticulitis Disposition: HOME SELF-CARE Condition: Stable Instructions (If sedation given, give patient instructions): Diverticulitis ( ED), Diverticulitis Diet (ED) Additional Instructions: Please return to the Emergency Department if symptoms worsen or any other concerns. Prescriptions: Amoxic-Pot Clav 875-125Mg [Augmentin 875-125] 1 tab PO Q12HR #20 tab Is patient prescribed a controlled substance at d/c from ED?: No Referrals: Jessica Ramos DO [Primary Care Provider] - 1-2 days Time of Disposition: 10:50
[2024-08-15 09:15] LABS: AST 52 U/L (17-59); Alkaline Phosphatase 90 U/L (38-126); Potassium 4.1 mmol/L (3.5-5.1)
--- NOTE | 2024-08-15 09:31 | CT ---
EXAMINATION TYPE: CT abdomen pelvis w con CT DLP: 831.5 mGycm, Automated exposure control for dose reduction was used. DATE OF EXAM: 08/15/2024 9:25 AM COMPARISON: CT abdomen pelvis 11/03/2022, 09/16/2022, 09/06/2022, abdominal ultrasound 11/15/2022 CLINICAL INDICATION:Male, 49 years old with history of abdominal pain; ABD PAIN TECHNIQUE: Standard CT of the abdomen and pelvis following the administration of 100 cc of Isovue 3 00 IV contrast material. Coronal and sagittal reformats were performed. FINDINGS: LOWER CHEST: Unremarkable ABDOMEN LIVER: Unremarkable GALLBLADDER AND BILE DUCTS: The gallbladder is surgically absent. No biliary ductal dilatation. PANCREAS: Unremarkable. SPLEEN: Stable 4.5 cm peripherally calcified cystic lesion within the spleen suggestive of a pseudocy st. ADRENAL GLANDS: Unremarkable. KIDNEYS AND URETERS: No evidence of hydronephrosis or renal calculus. The kidneys enhance symmetrical ly. Contrast is demonstrated within both collecting systems on the delayed phase. PELVIS BLADDER: Underdistended but grossly unremarkable. REPRODUCTIVE: Unremarkable. ABDOMEN & PELVIS STOMACH AND BOWEL: Stomach and duodenum are unremarkable. Redundant sigmoid colon. No evidence of bow el obstruction. The appendix is surgically absent. No focal bowel wall thickening or surrounding infl ammatory changes. PERITONEUM: No evidence of pneumoperitoneum or free fluid. VASCULATURE: No evidence of aortic aneurysm. MUSCULOSKELETAL: No acute osseous abnormalities LYMPH NODES: No evidence for lymphadenopathy. SOFT TISSUE/ABDOMINAL WALL: Unremarkable IMPRESSION: No CT evidence for acute abdominal/pelvic process. [facility], , 08/15/2024 9:29 AM
[2024-08-15] MEDS: KETOROLAC 15 MG/ML 1 ML VIAL IVP STA (10:33)
[2024-08-15 10:37] VITALS: BP 119/77; PULSE 78; RESP 18
[2024-08-15 10:40] LABS: Appearance,Urine Clear (Clear); Bilirubin,Urine Negative (Negative); Blood,Urine Negative (Negative); Color,Urine Yellow; Glucose,Urine (UA) Negative (Negative); Ketones,Urine Negative (Negative); Leukocyte Esterase,Urine Negative (Negative); Mucus,Urine Many /hpf; Nitrite,Urine Negative (Negative); Protein,Urine 1+ (Negative); Specific Gravity,Urine 1.037 (1.001-1.035); Squamous Epithelial Cell,Urine <1 /hpf (0-4); WBC,Urine 3 /hpf (0-5)
[2024-08-15 10:58] VITALS: TEMP 98.3
== END 2024-08-15 10:59 | disposition home or self-care (01) ==
LOC: EC 08:15
DX: K57.32 Diverticulitis of large intestine without perforation or abscess without bleeding (principal); F17.200 Nicotine dependence, unspecified, uncomplicated
CPT/HCPCS: 36415; 80053; 82150; 83605; 83690; 85025; 81001; 74177; 99284; 96374; 96376; 96375; 96361; J2405; J1885; J1171; Q9967